=== PATIENT | female | born 1960 | race Caucasian/White ===

== ENCOUNTER → 2017-08-16 | Outpatient (CLI) | payer OTHER ==
--- NOTE | 2017-08-17 10:27 | MM ---
Reason for exam: screening (asymptomatic). Last mammogram was performed 1 year and 5 months ago. History: Patient is postmenopausal and has history of endometrial cancer at age 53. Physical Findings: A clinical breast exam by your physician is recommended on an annual basis and results should be correlated with mammographic findings. MG Screening Mammo w CAD Bilateral CC and MLO view(s) were taken. Prior study comparison: March 04, 2016, bilateral MG screening mammo w CAD. June 12, 2014, bilateral MG screening mammo w CAD. The breast tissue is heterogeneously dense. This may lower the sensitivity of mammography. No significant changes when compared with prior studies. ASSESSMENT: Negative, BI-RAD 1 RECOMMENDATION: Routine screening mammogram of both breasts in 1 year.
== END | disposition home or self-care (01) ==
LOC: RADMAMWWP 16:38
PROVIDERS: ATTEND Obstetrics & Gynecology
DX: Z12.31 Encounter for screening mammogram for malignant neoplasm of breast (principal)

== ENCOUNTER → 2018-10-12 | Outpatient (CLI) | payer OTHER ==
--- NOTE | 2018-10-15 10:48 | MM ---
Reason for exam: screening (asymptomatic). Last mammogram was performed 1 year and 2 months ago. History: Patient is postmenopausal and has history of endometrial cancer at age 53. Physical Findings: A clinical breast exam by your physician is recommended on an annual basis and results should be correlated with mammographic findings. MG Screening Mammo w CAD Bilateral CC and MLO view(s) were taken. Prior study comparison: August 16, 2017, bilateral MG screening mammo w CAD. March 04, 2016, bilateral MG screening mammo w CAD. The breast tissue is heterogeneously dense. This may lower the sensitivity of mammography. No suspicious abnormality. No significant changes when compared with prior studies. ASSESSMENT: Negative, BI-RAD 1 RECOMMENDATION: Routine screening mammogram of both breasts in 1 year.
--- NOTE | 2018-10-15 12:53 | BD ---
EXAMINATION TYPE: Axial Bone Density DATE OF EXAM: 10/12/2018 COMPARISON: 03/04/2016 CLINICAL HISTORY: Postmenopausal female. Osteoporosis screening. Height: 65 Weight: 156.3 FRAX RISK QUESTIONS: Alcohol (3 or more units per day): no Family History (Parent hip fracture): no Glucocorticoids (More than 3mos): no (Ex: prednisone, prednisolone, methylprednisolone, dexamethasone, and hydrocortisone). History of Fracture in Adulthood: no Secondary Osteoporosis: 1. Type 1 Diabetes: no 2. Hyperthyroidism: no 3. Menopause before 45: no 4. Malnutrition: no 5. Chronic liver disease: no Rheumatoid Arthritis: no Current Tobacco Use: no RISK FACTORS HISTORY OF: Family History of Osteoporosis: no Active: sometimes Diet low in dairy products/other sources of calcium: no Postmenopausal woman: age 53 MEDICATIONS: lipitor, diabetic meds, blood pressure meds Thyroid Medications: levothyroxine How Lon years Additional History: EXAM MEASUREMENTS: Bone mineral densitometry was performed using the HEAL[employer] System. Bone mineral density as measured about the Lumbar spine is: ----- L1-L4(G/cm2): 1.220 T Score Values are as follows: ----- L2: -0.6 ----- L3: 0.5 ----- L4: 1.6 ----- L1-L4: 0.3 Bone mineral density has: decreased -0.1 % since study of: 03.04.2016 Bone mineral density about the R hip (g/cm2): 0.910 Bone mineral density about the L hip (g/cm2): 0.827 T Score values are as follows: -----R Neck: -0.9 -----L Neck: -1.5 -----R Total: -0.8 -----L Total: -1.1 Bone mineral density has: decreased -5.1 % since study of: 03.04.2016 IMPRESSION: Osteopenia (T Score between -2.5 and -1). There is slightly increased risk of fracture and the patient may be considered for treatment. Re-Screen 2-5 years. NOTE: T-SCORE=SD OF THE YOUNG ADULT MEAN.
== END | disposition home or self-care (01) ==
LOC: RADMAMWWP 15:34
PROVIDERS: ATTEND Obstetrics & Gynecology
DX: Z12.31 Encounter for screening mammogram for malignant neoplasm of breast (principal); M85.80 Other specified disorders of bone density and structure, unspecified site
CPT/HCPCS: 77067; 77080

== ENCOUNTER 2019-01-25 15:45 | Emergency (ER) | payer OTHER ==
--- NOTE | 2019-01-25 16:41 | ED ---
Back Pain HPI - General Chief Complaint: Back Pain/Injury Stated Complaint: Back Pain Time Seen by Provider: 01/25/19 16:06 Source: patient, RN notes reviewed Limitations: no limitations - History of Present Illness Initial Comments: 58-year-old female presented emergency Department chief complaint of left lower back pain. Patient states the pain has been persistent over the last 1 week. Cannot remember any injury at this time. Patient does state the pain is worse with any movement better at rest. Denies any bowel bladder incontinence or retention. Denies any saddle anesthesias. Denies any lower extremity paresthesias or weakness. Patient has no abdominal complaints including diarrhea constipation no dysuria no hematuria. Patient reports no fevers or chills. Patient did try some ibuprofen with minimal relief. - Related Data Previous Rx's Medication Instructions Recorded Cyclobenzaprine [Flexeril] 10 mg PO TID PRN #15 tab 01/25/19 Ibuprofen [Motrin] 800 mg PO Q6HR #30 tab 01/25/19 Allergies Allergy/AdvReac Type Severity Reaction Status Date / Time No Known Allergies Allergy Verified 01/25/19 15:57 Review of Systems ROS Statement: Those systems with pertinent positive or pertinent negative responses have been documented in the HPI. ROS Other: All systems not noted in ROS Statement are negative. Past Medical History Past Medical History: Diabetes Mellitus, Hyperlipidemia History of Any Multi-Drug Resistant Organisms: None Reported Past Surgical History: Section, Orthopedic Surgery Past Psychological History: No Psychological Hx Reported Smoking Status: Never smoker Past Alcohol Use History: None Reported Past Drug Use History: Unable to Obtain General Exam Limitations: no limitations General appearance: alert, in no apparent distress Neck exam: Present: normal inspection, full ROM. Absent: tenderness, meningismus, lymphadenopathy Respiratory exam: Present: normal lung sounds bilaterally. Absent: respiratory distress, wheezes, rales, rhonchi, stridor Cardiovascular Exam: Present: regular rate, normal rhythm, normal heart sounds. Absent: systolic murmur, diastolic murmur, rubs, gallop, clicks Extremities exam: Present: other (Lower extremity strength equal bilaterally neurovascular intact) Back exam: Present: full ROM, tenderness, paraspinal tenderness, other (Pain with left straight leg raise). Absent: vertebral tenderness Neurological exam: Present: alert, oriented X3, CN II-XII intact, reflexes normal. Absent: motor sensory deficit Skin exam: Present: warm, dry, intact, normal color. Absent: rash Course Vital Signs 01/25/19 15:54 Temperature 97.7 F Pulse Rate 91 Respiratory 18 Rate Blood Pressure 130/85 O2 Sat by Pulse 99 Oximetry Medical Decision Making - Medical Decision Making 4-year-old female presented for low back pain. Patient's symptoms are consistent with lumbar strain. She has no red flag symptoms, neurovascular intact. Patient be discharged with medications and return parameters were discussed. Disposition Clinical Impression: Strain of lumbar region Disposition: HOME SELF-CARE Condition: Stable Instructions (If sedation given, give patient instructions): Acute Low Back Pain (ED) Additional Instructions: Please return to the Emergency Department if symptoms worsen or any other concerns. Prescriptions: Cyclobenzaprine [Flexeril] 10 mg PO TID PRN #15 tab PRN Reason: Muscle Spasm Ibuprofen [Motrin] 800 mg PO Q6HR #30 tab Is patient prescribed a controlled substance at d/c from ED?: No Referrals: Teodoro Rod DO [Primary Care Provider] - 1-2 days Time of Disposition: 17:28
--- NOTE | 2019-01-25 16:58 | XR ---
EXAMINATION TYPE: XR lumbosacral spine min 4V DATE OF EXAM: 01/25/2019 COMPARISON: NONE HISTORY: Back pain TECHNIQUE: 5 views FINDINGS: The lumbar vertebra have fairly normal alignment. Posterior elements are intact. There is m ild spurring of the endplates. Sacroiliac joints appear normal. There is no compression fracture. IMPRESSION: Mild spondylotic changes. No fracture.
[2019-01-25] MEDS ORDERED: ACET/COD 300 MG/30 MG STARTER PACK 6 TAB BTL PO STA (17:28)
[2019-01-25 17:39] VITALS: BP 149/83; PULSE 88; RESP 16; TEMP 97.5
== END 2019-01-25 17:40 | disposition home or self-care (01) ==
LOC: EC 15:45
DX: S39.012A Strain of muscle, fascia and tendon of lower back, initial encounter (principal); X58.XXXA Exposure to other specified factors, initial encounter
CPT/HCPCS: 72110; 99283

== ENCOUNTER 2019-03-11 10:07 | Inpatient (IN) | payer OTHER ==
[2019-03-11] MEDS ORDERED: KETOROLAC 30 MG/ML 1 ML VIAL IVP STA (11:00)
[2019-03-11] MEDS ORDERED: MORPHINE SULFATE 4 MG/ML SYRINGE IVP STA (11:00)
--- NOTE | 2019-03-11 11:03 | ED ---
Back Pain HPI - General Chief Complaint: Back Pain/Injury Stated Complaint: back pain Time Seen by Provider: 03/11/19 10:23 Source: patient, RN notes reviewed, old records reviewed Limitations: no limitations - History of Present Illness Initial Comments: Patient is a 4-year-old female presents emergency room today for evaluation for lower back pain for the past month. Patient states that she's been having worsening pain occasionally in her pelvis and groin. Patients that she's had a history of uterine cancer in remission. Patient states that tomorrow she is scheduled for a CT of her entire body and bone scan. Patient reports that she was prescribed tramadol for pain relief by her PCP and it was not helping. Patient states that she's had no fevers or chills. She does report poor appetite and weight loss. - Related Data Home Medications Medication Instructions Recorded Confirmed Cholecalciferol [Vitamin D3] 1,000 unit PO DAILY 03/11/19 03/11/19 Levothyroxine Sodium [Synthroid] 100 mcg PO DAILY 03/11/19 03/11/19 Lisinopril [Prinivil] 10 mg PO DAILY 03/11/19 03/11/19 traMADol HCL [Ultram] 50 mg PO Q6H 03/11/19 03/11/19 Allergies Allergy/AdvReac Type Severity Reaction Status Date / Time latex Allergy Rash/Hives Verified 03/11/19 10:25 Review of Systems ROS Statement: Those systems with pertinent positive or pertinent negative responses have been documented in the HPI. ROS Other: All systems not noted in ROS Statement are negative. Past Medical History Past Medical History: Diabetes Mellitus, Hyperlipidemia Additional Past Medical History / Comment(s): chronic back pain History of Any Multi-Drug Resistant Organisms: None Reported Past Surgical History: Section, Orthopedic Surgery Past Psychological History: No Psychological Hx Reported Smoking Status: Never smoker Past Alcohol Use History: None Reported Past Drug Use History: None Reported General Exam - General Exam Comments Initial Comments: This is a 58-year-old female. Alert and oriented. No significant distress. Limitations: no limitations Head exam: Present: atraumatic, normocephalic, normal inspection Eye exam: Present: normal appearance, PERRL, EOMI. Absent: scleral icterus, conjunctival injection, periorbital swelling ENT exam: Present: normal exam, mucous membranes moist Neck exam: Present: normal inspection. Absent: tenderness, meningismus, lymphadenopathy Respiratory exam: Present: normal lung sounds bilaterally. Absent: respiratory distress, wheezes, rales, rhonchi, stridor Cardiovascular Exam: Present: regular rate, normal rhythm, normal heart sounds. Absent: systolic murmur, diastolic murmur, rubs, gallop, clicks GI/Abdominal exam: Present: soft, normal bowel sounds. Absent: distended, tenderness, guarding, rebound, rigid Extremities exam: Present: normal inspection, full ROM, normal capillary refill. Absent: tenderness, pedal edema, joint swelling, calf tenderness Back exam: Present: normal inspection Neurological exam: Present: alert, oriented X3, CN II-XII intact Psychiatric exam: Present: normal affect, normal mood Skin exam: Present: warm, dry, intact, normal color. Absent: rash Course Vital Signs 03/11/19 10:08 Temperature 97.4 F L Pulse Rate 117 H Respiratory 18 Rate Blood Pressure 131/79 O2 Sat by Pulse 100 Oximetry Medical Decision Making - Medical Decision Making Patient is a 4-year-old female who presents emergency Department today with complaints of weight loss, lower back pain for the past month. Patient states that she has been unable to sleep well due to the pain. She reports no significant change in urination or saddle anesthesias. At this time reviewed patient's x-ray from one month ago which showed normal lumbar spine. Due to this concern of worsening weight loss CT lumbar spine is completed. Evidence of a pathologic fracture at L3 which could represent recurrence of patient's cancer. The CT also shows retroperitoneal adenopathy and pneumothorax abdomen and pelvis. Lymphoma should be considered. There is also moderate left hydroureter nephrosis causing adenopathy encased in the left mild ureter. Lymph nodes are partially calcified. Patient was informed of these results and the new pathologic fracture. She states her pain is still significant after receiving IV pain medication. Patient's case discussed with pharmacist Dr. Collins Will discuss case with Dr. rod. I discussed the treatment out patiently with pain medication or inpatient. Patient states she hasn't felt well to go home. We will admit this Patient at this time for new L3 compression deformity and concern for metastases. We'll consult oncology and Dr. Katz. - Lab Data Result diagrams: 03/11/19 11:37 03/11/19 11:37 Lab Results 03/11/19 03/11/19 03/11/19 Range/Units 11:37 11:37 11:37 WBC 11.9 H (3.8-10.6) k/uL RBC 4.73 (3.80-5.40) m/uL Hgb 13.4 (11.4-16.0) gm/dL Hct 40.3 (34.0-46.0) % MCV 85.2 (80.0-100.0) fL MCH 28.5 (25.0-35.0) pg MCHC 33.4 (31.0-37.0) g/dL RDW 14.4 (11.5-15.5) % Plt Count 355 (150-450) k/uL Neutrophils % 64 % Lymphocytes % 23 % Monocytes % 8 % Eosinophils % 2 % Basophils % 1 % Neutrophils # 7.6 (1.3-7.7) k/uL Lymphocytes # 2.8 (1.0-4.8) k/uL Monocytes # 1.0 (0-1.0) k/uL Eosinophils # 0.2 (0-0.7) k/uL Basophils # 0.1 (0-0.2) k/uL Sodium 136 L (137-145) mmol/L Potassium 4.2 (3.5-5.1) mmol/L Chloride 101 (98-107) mmol/L Carbon Dioxide 26 (22-30) mmol/L Anion Gap 9 mmol/L BUN 18 H (7-17) mg/dL Creatinine 0.56 (0.52-1.04) mg/dL Est GFR (CKD-EPI)AfAm >90 (>60 ml/min/1.73 sqM) Est GFR (CKD-EPI)NonAf >90 (>60 ml/min/1.73 sqM) Glucose 119 H (74-99) mg/dL Calcium 10.1 (8.4-10.2) mg/dL Urine Color Yellow Urine Appearance Cloudy H (Clear) Urine pH 6.0 (5.0-8.0) Ur Specific [place] 1.027 (1.001-1.035) Urine Protein Trace H (Negative) Urine Glucose (UA) Negative (Negative) Urine Ketones Negative (Negative) Urine Blood Negative (Negative) Urine Nitrite Negative (Negative) Urine Bilirubin Negative (Negative) Urine Urobilinogen 2.0 (<2.0) mg/dL Ur Leukocyte Esterase Negative (Negative) Urine RBC 19 H (0-5) /hpf Urine WBC 5 (0-5) /hpf Ur Squamous Epith Cells <1 (0-4) /hpf Hyaline Casts 6 H (0-2) /lpf Urine Mucus Few H (None) /hpf - Radiology Data Radiology results: report reviewed Pressure. He adenopathy or pneumothorax abdomen and pelvis. Lymphoma should be considered. Crates moderate left hydroureter nephrosis is adenopathy in case his them left mid ureter. Some the lymph nodes are partially calcified today and treated metastases could be considered if there is history of primary carcinoma. Left lateral compression deformity of L3 vertebral body with indistinct margin that could represent a pathologic fracture. MRI of the lumbar spine evaluate for bone marrow replacing process and bone marrow edema. Moderate multilevel degenerative disc disease of lumbar spine results and mild spinal canal stenosis at L1-L2, and moderate spinal canal systems L3-L4. Variable degrees of neural foraminal narrowing as described. Disposition Clinical Impression: Pathologic fracture, Adenopathy, Hydroureter on left, Weight loss Disposition: ADMITTED IP TO THIS HOSP Condition: Good Is patient prescribed a controlled substance at d/c from ED?: No Referrals: Teodoro Rod DO [Primary Care Provider] - 1-2 days Time of Disposition: 12:50
[2019-03-11 12:02] LABS: Appearance,Urine Cloudy (Clear); Bilirubin,Urine Negative (Negative); Blood,Urine Negative (Negative); Color,Urine Yellow; Glucose,Urine (UA) Negative (Negative); Hyaline Casts,Urine 6 /lpf (0-2); Ketones,Urine Negative (Negative); Leukocyte Esterase,Urine Negative (Negative); Mucus,Urine Few /hpf; Nitrite,Urine Negative (Negative); Protein,Urine Trace (Negative); RBC,Urine 19 /hpf (0-5); Specific Gravity,Urine 1.027 (1.001-1.035); Squamous Epithelial Cell,Urine <1 /hpf (0-4); WBC,Urine 5 /hpf (0-5)
[2019-03-11 12:15] LABS: Anion Gap 9 mmol/L; Blood Urea Nitrogen 18 mg/dL (7-17); Calcium 10.1 mg/dL (8.4-10.2); Carbon Dioxide 26 mmol/L (22-30); Chloride 101 mmol/L (98-107); Glucose 119 mg/dL (74-99); Potassium 4.2 mmol/L (3.5-5.1); Sodium 136 mmol/L (137-145)
--- NOTE | 2019-03-11 12:15 | CT ---
EXAMINATION TYPE: CT lumbar spine wo con DATE OF EXAM: 03/11/2019 12:02 PM COMPARISON: None HISTORY: Low back pain CT DLP: 520.3 mGycm Automated exposure control for dose reduction was used. TECHNIQUE: Unenhanced CT of the lumbar spine was performed. Bone and soft tissue window settings are submitted as well as coronal and sagittal reconstructions. FINDINGS: Retrocrural adenopathy is seen in the visualized portions of the inferior thorax, abdomen, and pelvis. Some of these lymph nodes contain internal dystrophic appearing calcifications. The large st conglomeration of lymph nodes within the periaortic space on series 202 image 23 measuring 3.5 x 3 .7 cm. There is some inflammatory change seen adjacent to this and partial visualization of moderate left hydroureteronephrosis as adenopathy surrounds the left mid ureter. Visualized bowel is nondilate d and there is moderate degree fecal stasis. Punctate 2 mm nonobstructing right lower pole renal calc ulus is seen. Lower paraspinal musculature demonstrates atrophy and there is mild osseous demineraliz ation. Multilevel degenerative disc disease is seen of the lumbar spine. The lumbar spine vertebral bodies maintain normal alignment however there is a compression deformity of the left lateral aspect of the L3 vertebral body with indistinct margins. Vertebral body height lo ss is approximately 20%. No retropulsion is seen. This involves the mid and anterior endplate of the left lateral aspect of the vertebral body only. L1-L2: There is a broad-based disc bulge and mild facet arthropathy resulting in mild bilateral neura l foraminal narrowing and mild spinal canal stenosis. L2-L3: There is a broad-based disc bulge and facet arthropathy resulting in mild bilateral neural for aminal narrowing without spinal canal stenosis. L3-L4: There is a broad-based disc bulge and facet arthropathy as well as ligamentum flavum buckling resulting in moderate spinal canal stenosis and mild bilateral neural foraminal narrowing. L4-L5: There is a partially calcified broad-based disc bulge, ligamentum flavum buckling and facet ar thropathy resulting in mild bilateral neural foraminal narrowing and moderate to severe spinal canal stenosis. L5-S1: There is a partially calcified left eccentric broad-based disc bulge and comminution with post erior projecting osteophyte and left lateral disc herniation create severe left neural foraminal narr owing, mild right neural foraminal narrowing and moderate spinal canal stenosis. Facet arthropathy is also seen at this level. IMPRESSION: 1. Retroperitoneal adenopathy in the thorax, abdomen, and pelvis. Lymphoma should be considered. This creates moderate left hydroureteronephrosis as adenopathy encases the left mid ureter. Some of the l ymph nodes are partially calcified and treated metastasis could be considered if there is a history o f primary carcinoma. 2. Left lateral compression deformity of the L3 vertebral body with indistinct margin is seen that co uld represent a pathologic fracture. MRI of the lumbar spine could evaluate for bone marrow replacing process and bone marrow edema. 3. Moderate multilevel degenerative disc disease of the lumbar spine results in mild spinal canal k[place] nosis at L1-L2, moderate spinal canal stenosis at L3-L4 and L5-S1, severe spinal canal stenosis at L4 -L5 and variable degrees of neural foraminal narrowing as described above.
[2019-03-11 12:16] LABS: Basophils # (A) 0.1 k/uL (0-0.2); Basophils % (A) 1 %; Eosinophils # (A) 0.2 k/uL (0-0.7); Eosinophils % (A) 2 %; HCT 40.3 % (34.0-46.0); HGB 13.4 gm/dL (11.4-16.0); Lymphocytes # (A) 2.8 k/uL (1.0-4.8); Lymphocytes % (A) 23 %; MCH 28.5 pg (25.0-35.0); MCHC 33.4 g/dL (31.0-37.0); MCV 85.2 fL (80.0-100.0); Mean Platelet Volume 6.7; Monocytes % (A) 8 %; Neutrophils # (A) 7.6 k/uL (1.3-7.7); Neutrophils % (A) 64 %; Platelet Count 355 k/uL (150-450); RBC 4.73 m/uL (3.80-5.40); RDW 14.4 % (11.5-15.5); WBC 11.9 k/uL (3.8-10.6)
[2019-03-11] MEDS ORDERED: ONDANSETRON 4 MG/2 ML VIAL IVP PRN (12:52)
[2019-03-11] MEDS ORDERED: NALOXONE 0.4 MG/ML 1 ML VIAL IV PRN (12:52)
[2019-03-11] MEDS: SODIUM CHLORIDE 0.9% 1,000 ML IV SCH (14:28)
[2019-03-11] MEDS: KETOROLAC 30 MG/ML 1 ML VIAL IVP PRN (21:24)
[2019-03-11] MEDS: MORPHINE SULFATE 4 MG/ML SYRINGE IV PRN (21:54)
[2019-03-12] MEDS: SODIUM CHLORIDE 0.9% 1,000 ML IV SCH ×3 (00:21→20:08)
[2019-03-12] MEDS: MORPHINE SULFATE 4 MG/ML SYRINGE IV PRN ×3 (05:00→20:32)
[2019-03-12] MEDS: KETOROLAC 30 MG/ML 1 ML VIAL IVP PRN ×3 (05:00→20:31)
--- NOTE | 2019-03-12 07:56 | P.HPIM ---
History of Present Illness H&P Date: 03/12/19 Chief Complaint: Back pain This is a pleasant 58-year-old white female who initially presented to my office with acute low back pain and strain. She was set up for outpatient CT scans and x-rays but came to the hospital for intractable pain last evening. She has cancer of the uterus. And it appears the patient may have some metastatic disease versus lymphoma process. There is multiple areas of concern including the lumbar spine she currently is admitted for pain control and further evaluation with oncology services in orthopedics. Review of Systems GENERAL: Patient denies fever. Denies chills. EYES: Denies blurred vision. Denies vision changes. Denies eye pain. EARS, NOSE, MOUTH, & THROAT: Denies headache. Denies sore throat. Denies ear pain. RESPIRATORY: Denies cough. Denies shortness of breath. Denies sputum production. Denies hemoptysis. CARDIOVASCULAR: Denies chest pain or pressure. Denies palpitations. Denies ar rhythmias. GASTROINTESTINAL: Denies abdominal pain. Denies diarrhea. Denies constipation. Denies nausea. Denies vomiting. Denies heartburn. Denies blood in the stool. GENITOURINARY: Denies urinary frequency. Denies burning. Denies dysuria. Denies cloudy urine. Denies blood in the urine. MUSCULOSKELETAL: Admits myalgias. Admits joint swelling. Admits to severe pain in the lumbar spine with decreased range of motion INTEGUMENTARY: Denies pruitis. Denies rash. PSYCHIATRIC: Denies suicidal or homicial ideations. ENDOCRINE: Denies weight change. Denies polydipsia. Denies polyuria. HEMATOLOGIC: Denies bleeding disorders. Past Medical History Past Medical History: Diabetes Mellitus, Hyperlipidemia, Hypertension, Thyroid Disorder Additional Past Medical History / Comment(s): 2012 Uterine cancer with hysterectomy and radiation, NIDDM-no longer on medication d/t wt loss, neuropathy bilateral feet, hypothyroid. History of Any Multi-Drug Resistant Organisms: None Reported Past Surgical History: Section, Hysterectomy, Orthopedic Surgery Additional Past Surgical History / Comment(s): x 2, L foot bone spur Past Anesthesia/Blood Transfusion Reactions: Motion Sickness, Postoperative Nausea & Vomiting (PONV) Smoking Status: Never smoker - Past Family History Father Family Medical History: Myocardial Infarction ([place]) Additional Family Medical History / Comment(s): Father had a [place] at the age of 85 yrs. Mother Family Medical History: Osteoarthritis (OA), Skin Disorder, Thyroid Disorder Additional Family Medical History / Comment(s): Psoriasis. Medications and Allergies Home Medications Medication Instructions Recorded Confirmed Type Cholecalciferol [Vitamin D3] 1,000 unit PO DAILY 03/11/19 03/11/19 History Levothyroxine Sodium [Synthroid] 100 mcg PO DAILY 03/11/19 03/11/19 History Lisinopril [Prinivil] 10 mg PO DAILY 03/11/19 03/11/19 History traMADol HCL [Ultram] 50 mg PO Q6H 03/11/19 03/11/19 History Allergies Allergy/AdvReac Type Severity Reaction Status Date / Time latex Allergy Rash/Hives Verified 03/11/19 10:25 Physical Exam Osteopathic Statement: *. Patient has significant issues noted on an osteopathic structural exam including didn't decreased range of motion lumbar spine with extreme pain. Somatic dysfunctions evident Vitals: Vital Signs Temp Pulse Pulse Resp BP BP Pulse Ox 03/12/19 05:00 97.9 F 90 16 130/80 100 03/11/19 23:20 16 03/11/19 21:00 97.4 F L 95 16 107/60 98 03/11/19 16:48 97.7 F 96 16 125/69 97 03/11/19 16:00 18 105/67 100 03/11/19 15:00 96 18 110/74 99 03/11/19 14:17 97 18 112/76 100 03/11/19 10:08 97.4 F L 117 H 18 131/79 100 Intake and Output 03/11/19 03/12/19 03/12/19 22:59 06:59 14:59 Intake Total 1000 580 Balance 1000 580 Intake: Intake, IV Titration 400 Amount Sodium Chloride 0.9% 1, 400 000 ml @ 100 mls/hr IV . Q10H JAYLENE Rx#:[id number] Oral 600 580 Other: # Voids 1 1 GENERAL: This is a -58 year-old female in apparent distress at the time of examination. Pleasant and cooperative. HEENT: Head is atraumatic, normocephalic. Pupils are equal, round, and reactive to light. Sclerae anicteric. Conjunctivae are clear. Mucus membranes of the mouth are moist. Neck is supple. RESPIRATORY: Clear to auscultation. No wheezes, rales, or rhonchi. No use of accessory muscles. Patient maintaining oxygen saturation greater than 92%. No chest wall tenderness is noted on palpation or with deep breathing. CARDIOVASCULAR: Regular rate and rhythm. S1 and S2 noted. No systolic or diastolic murmur auscultated. No JVD noted. No S3 or S4 noted. GASTROINTESTINAL: No distention noted. Abdomen soft and round. Normal active bowel sounds auscultated x 4 quadrants. No pain or tenderness noted upon palpation. INTEGUMENTARY: No cyanosis. No jaundice. No rashes noted. No cellulitis noted. EXTREMITIES: 2+ peripheral pulses. No evidence of peripheral edema. No calf tenderness noted. Pain in the lumbar spine difficulty ambulating difficulty with range of motion of the lower extremities NEUROLOGIC: Cranial nerves II-XII intact. PSYCHIATRIC: Awake, alert, and oriented X 3. Appropriate affect. Intact judgement and insight. Results CBC & Chem 7: 03/11/19 11:37 03/11/19 11:37 Labs: Abnormal Lab Results - Last 24 Hours (Table) 03/11/19 03/11/19 03/11/19 Range/Units 11:37 11:37 11:37 WBC 11.9 H (3.8-10.6) k/uL Sodium 136 L (137-145) mmol/L BUN 18 H (7-17) mg/dL Glucose 119 H (74-99) mg/dL Urine Appearance Cloudy H (Clear) Urine Protein Trace H (Negative) Urine RBC 19 H (0-5) /hpf Hyaline Casts 6 H (0-2) /lpf Urine Mucus Few H (None) /hpf Thrombosis Risk Factor Assmnt - Choose All That Apply Any of the Below Risk Factors Present?: Yes Each Factor Represents 1 point: Age 41-60 years Other Risk Factors: Yes Each Risk Factor Represents 2 Points: Malignancy Other congenital or acquired thrombophilia - If yes, enter type in comment: No Thrombosis Risk Factor Assessment Total Risk Factor Score: 3 Thrombosis Risk Factor Assessment Level: Moderate Risk Assessment and Plan (1) Hypothyroidism Current Visit: Yes Status: Acute Code(s): E03.9 - HYPOTHYROIDISM, UNSPECIFIED SNOMED Code(s): 75515705 (2) Adenopathy Current Visit: Yes Status: Acute Code(s): R59.1 - GENERALIZED ENLARGED LYMPH NODES SNOMED Code(s): 52459251 (3) Hydroureter on left Current Visit: Yes Status: Acute Code(s): N13.4 - HYDROURETER SNOMED Code(s): 53957816 (4) Pathologic fracture Current Visit: Yes Status: Acute Code(s): M84.40XA - PATHOLOGICAL FRACTURE, UNSP SITE, INIT ENCNTR FOR FRACTURE SNOMED Code(s): 540095851 (5) Weight loss Current Visit: Yes Status: Acute Code(s): R63.4 - ABNORMAL WEIGHT LOSS SNOMED Code(s): 48795725 Plan: We'll admit patient with pain control for oncology evaluation as well as orthopedic evaluation of pathological fractures of the lumbar spine.
[2019-03-12] MEDS ORDERED: PANTOPRAZOLE 40 MG/10 ML VIAL IV SCH (09:00)
--- NOTE | 2019-03-12 09:20 | P.CNOR ---
History of Present Illness - [facility] Consult date: 03/12/19 Requesting physician: Ashley Jovel Consult reason: fracture (L3 pathologic compression fracture), low back pain History of present illness: Patient is a very pleasant 58-year-old female who is seen and examined the bedside after consultation was placed for further dilation of low back pain and L3 pathologic fracture. Patient has been experiencing increased left-sided low back pain over the past month without injury. She is also following with Dr. Rod in the outpatient setting. She has had loss of appetite with increased weight loss and states she has lost approximately 30 pounds. Her pain became so severe she presented to the emergency department yesterday, 03/11/2019, for further evaluation. Computed tomography scan was taken emergency department which showed evidence of a pathologic fracture at L3 as well as findings which could indicate lymphoma. Patient states she was scheduled CT scans and a bone scan performed today. Patient is seen and examined at bedside with her family present as well as Dr. Rod. Dr. Rod is planning to discontinue previously ordered CT scans and bone scan. We will plan to proceed forward with an MRI of the lumbar spine with and without contrast. Consultation has also been placed with oncology. Patient denies any lower extremity weakness or radiculopathy bilaterally. She feels her back pain is exacerbated with movements of her spine. She has not experienced increased pain with coughing or sneezing. She denies any recent injuries. She does have a previous history of uterine cancer with hysterectomy and radiation in 2012. She does feel at the bedside her pain has been better controlled. She does admit at the bedside this morning she does not have much of an appetite. Patient also has a medical history including diabetes mellitus, hypertension, hyperlipidemia, thyroid disorder. Past Medical History Past Medical History: Diabetes Mellitus, Hyperlipidemia, Hypertension, Thyroid Disorder Additional Past Medical History / Comment(s): 2012 Uterine cancer with hysterectomy and radiation, NIDDM-no longer on medication d/t wt loss, neuropathy bilateral feet, hypothyroid. History of Any Multi-Drug Resistant Organisms: None Reported Past Surgical History: Section, Hysterectomy, Orthopedic Surgery Additional Past Surgical History / Comment(s): x 2, L foot bone spur Past Anesthesia/Blood Transfusion Reactions: Motion Sickness, Postoperative Nausea & Vomiting (PONV) Smoking Status: Never smoker - Past Family History Father Family Medical History: Myocardial Infarction ([place]) Additional Family Medical History / Comment(s): Father had a [place] at the age of 85 yrs. Mother Family Medical History: Osteoarthritis (OA), Skin Disorder, Thyroid Disorder Additional Family Medical History / Comment(s): Psoriasis. Medications and Allergies Home Medications Medication Instructions Recorded Confirmed Type Cholecalciferol [Vitamin D3] 1,000 unit PO DAILY 03/11/19 03/11/19 History Levothyroxine Sodium [Synthroid] 100 mcg PO DAILY 03/11/19 03/11/19 History Lisinopril [Prinivil] 10 mg PO DAILY 03/11/19 03/11/19 History traMADol HCL [Ultram] 50 mg PO Q6H 03/11/19 03/11/19 History Allergies Allergy/AdvReac Type Severity Reaction Status Date / Time latex Allergy Rash/Hives Verified 03/11/19 10:25 Physical Examination Physical exam: Patient is awake, alert, and oriented 3 Vital signs stable Good chest excursion with deep inspiration and expiration Examination of lumbar spine reveals skin is intact with no abrasions, lacerations, or bruises; no erythema, purulence or signs of infection Pain with palpation of the left lateral lumbar spine Dorsiflexion, plantarflexion, and extensor hallucis longus positive sustained bilaterally Lower extremity strength 5/5 bilaterally Straight leg test negative bilateral lower extremities No signs or symptoms of DVT; no calf pain No pain with internal and external rotation of the hips bilaterally Neurovascularly intact Results Pertinent studies: CT of the lumbar spine taken on 03/11/2019: Left lateral compression fracture deformity of the L3 vertebral body with indistinct margins that could represent pathologic fracture in which MRI of the lumbar spine to evaluate for bone marrow replacing process and bone marrow edema; retroperitoneal adenopathy in the thorax, abdomen, and pelvis in which lymphoma should be considered; moderate multilevel degenerative disc disease in the lumbar spine resulting in L1-2 mild spinal canal stenosis, L3-4 moderate spinal canal stenosis, L4-5 severe spinal canal stenosis, and L5-S1 moderate spinal canal stenosis; variable degrees of neuroforaminal narrowing; Adenopathy creating moderate left hydroureteronephrosis as the adenopathy encases the left mid ureter - Labs Labs: Abnormal Lab Results - Last 24 Hours (Table) 03/11/19 03/11/19 03/11/19 Range/Units 11:37 11:37 11:37 WBC 11.9 H (3.8-10.6) k/uL Sodium 136 L (137-145) mmol/L BUN 18 H (7-17) mg/dL Glucose 119 H (74-99) mg/dL Urine Appearance Cloudy H (Clear) Urine Protein Trace H (Negative) Urine RBC 19 H (0-5) /hpf Hyaline Casts 6 H (0-2) /lpf Urine Mucus Few H (None) /hpf H & H 03/11/19 Range/Units 11:37 Hgb 13.4 (11.4-16.0) gm/dL Hct 40.3 (34.0-46.0) % Result Diagrams: 03/11/19 11:37 03/11/19 11:37 Assessment and Plan Assessment: Assessment: Acute left-sided low back pain L3 pathologic compression fracture deformity Retroperitoneal adenopathy in the thorax, abdomen, and pelvis in which lymphoma should be considered Hydroureter on the left History of uterine cancer with hysterectomy and radiation in 2013 Recent weight loss and lack of appetite History of diabetes mellitus, hypertension, hyperlipidemia, and thyroid disorder (1) Nontraumatic compression fracture of L3 vertebra Current Visit: Yes Status: Acute Code(s): M48.56XA - COLLAPSED VERTEBRA, NEC, LUMBAR REGION, INIT SNOMED Code(s): 235276810 (2) Acute low back pain Current Visit: Yes Status: Acute Code(s): M54.5 - LOW BACK PAIN SNOMED Code(s): 759570781 (3) Retroperitoneal lymphadenopathy Current Visit: Yes Status: Acute Code(s): R59.0 - LOCALIZED ENLARGED LYMPH NODES SNOMED Code(s): 698612052 (4) History of uterine cancer Current Visit: Yes Status: Acute Code(s): Z85.42 - PERSONAL HISTORY OF MALIGNANT NEOPLASM OF OTH PRT UTERUS SNOMED Code(s): 679726201 (5) History of diabetes mellitus Current Visit: Yes Status: Acute Code(s): Z86.39 - PERSONAL HISTORY OF ENDO, NUTRITIONAL AND METABOLIC DISEASE SNOMED Code(s): 172646444 (6) History of hypertension Current Visit: Yes Status: Acute Code(s): Z86.79 - PERSONAL HISTORY OF OTHER DISEASES OF THE CIRCULATORY SYSTEM SNOMED Code(s): 479074769 (7) History of hyperlipidemia Current Visit: Yes Status: Acute Code(s): Z86.39 - PERSONAL HISTORY OF ENDO, NUTRITIONAL AND METABOLIC DISEASE SNOMED Code(s): 778388720 (8) History of thyroid disorder Current Visit: Yes Status: Acute Code(s): Z86.39 - PERSONAL HISTORY OF ENDO, NUTRITIONAL AND METABOLIC DISEASE SNOMED Code(s): 464737238 (9) Pathologic fracture Current Visit: Yes Status: Acute Code(s): M84.40XA - PATHOLOGICAL FRACTURE, UNSP SITE, INIT ENCNTR FOR FRACTURE SNOMED Code(s): 990427859 (10) Weight loss Current Visit: Yes Status: Acute Code(s): R63.4 - ABNORMAL WEIGHT LOSS SNOMED Code(s): 80072664 (11) Lack of appetite Current Visit: Yes Status: Acute Code(s): R63.0 - ANOREXIA SNOMED Code(s): 83187309 (12) Hydroureter on left Current Visit: Yes Status: Acute Code(s): N13.4 - HYDROURETER SNOMED Code(s): 59524103 Plan: Plan: 1. After physical examination of the patient, reviewing imaging, and further discussion with the patient, at this time we will plan to order an Exos LSO brace for the patient's fracture at L3 and left-sided low back pain. Prescription for this brace has been written, signed, and provided to nursing he will obtain this brace. Patient should wear this brace while sitting upright at greater than 45, during increase activities, during ambulation. Brace does not have to be worn while lying in bed or while bathing. Given the findings of the computed tomography scan, we will also plan to obtain an MRI of the lumbar spine with and without contrast for further evaluation. This imaging will be reviewed by myself and Dr. Anthony Katz. We will follow up with the patient following the completion of this MRI and reviewing of imaging to discuss further treatment options. 2. Patient will continue be seen and examined by Dr. Rod in medicine. 3. Patient currently waiting for consultation with oncology 4. Patient will be discussed in detail with Dr. Anthony Katz Time with Patient: Greater than 30 (Including obtaining history, physical exami nation, reviewing of imaging, and dictation.)
[2019-03-12] MEDS: CHOLECALCIFEROL 1,000 UNIT TAB PO SCH (09:40)
[2019-03-12] MEDS: LISINOPRIL 10 MG TAB PO SCH (09:40)
[2019-03-12] MEDS: IOPAMIDOL-300 CONTRAST 30 ML VIAL (ORAL USE) PO PRN ×3 (09:51→11:51)
[2019-03-12 10:50] VITALS: BMI 22.1
[2019-03-12] MEDS: LEVOTHYROXINE 100 MCG TAB PO SCH (10:54)
--- NOTE | 2019-03-12 13:32 | NM ---
EXAMINATION TYPE: NM bone scan whole body DATE OF EXAM: 03/12/2019 COMPARISON: Lumbar spine dated 03/11/2019 HISTORY: Left sided back pain for over one month that is constant. Personal history of uterine cancer approximately 6 years ago. Delayed whole-body scanning was performed following the injection of 24.7 mCi Tc 99m MDP. Images acq uired 3 hours post injection. FINDINGS: Focal uptake is seen at the L3 level corresponding to the compression deformity seen on the CT dated 03/11/2019. Slightly asymmetric uptake within the left ankle joint, asymmetric uptake within the left knee, glenohumeral overall symmetric uptake, acromioclavicular overall symmetric uptake, and sacroili ac joint overall symmetric uptake are likely on a degenerative basis. Physiologic excretion is seen w ithin the kidneys and urinary bladder. Focal radiotracer is noted of the right tibial plateau and may be degenerative. Focal radiotracer overlying the left 11th rib is also seen. Although this could als o be a calyceal diverticulum of the left superior pole of the kidney as no discrete osseous abnormali ty is seen on CT of the same date. IMPRESSION: 1. Focal radiotracer uptake within the L3 vertebral body within the known left lateral compression de formity again could be pathologic and correlation with MRI of the lumbar spine to evaluate for bone m arrow replacing process on T1 weighted imaging is recommended. 2. Punctate abnormal radiotracer focus overlying the left 11th rib is seen however no discrete CT cor relate is appreciated and therefore additional consideration is for a left calyceal diverticulum. 3. Degenerative changes of the axial and appendicular skeleton. Additional focal accumulation of radi otracer seen of the medial tibial plateau on the right and may be related to compartment arthropathy but should be correlated with right knee radiographs.
--- NOTE | 2019-03-12 15:13 | CT ---
EXAMINATION TYPE: CT ChestAbdPelvis w con DATE OF EXAM: 03/12/2019 COMPARISON: 12/09/2013 HISTORY: 58-year-old female History uterine malignancy, new adenopathy, back pain. TECHNIQUE: Contiguous axial scanning of the chest, abdomen, and pelvis performed with IV Contrast, pa tient injected with 100 mL of Isovue M300. Delayed images through the kidneys were obtained. Coronal/ sagittal reconstructions performed. CT DLP: 563.8 mGycm Automated exposure control for dose reduction was used. FINDINGS: Heart normal size without pericardial effusion. Aorta normal caliber with bovine configuration to the aortic arch. No mediastinal or axillary lymphadenopathy. Prominent left periaortic lymph node in the mid thorax measures 8 mm. Subpleural pulmonary nodule measuring 8 mm possibly associated with some cystic change in the right u pper lobe, axial image 17. Mild centrilobular emphysema is present. No consolidation or pleural effus ion. ABDOMEN: Tiny hiatal hernia. There is retrocrural lymphadenopathy measuring up to 1.7 cm. Conglomerate retroperitoneal lymphadenopathy measuring up to 7.4 cm wide, axial image 69 showing foca l erosion into the left anterior L3 vertebral body. This partially encases the aorta by nearly 180 de grees. Individual left periaortic lymph nodes are centrally necrotic measuring up to 3.9 cm. No focal liver lesion identified and no biliary ductal dilatation. Portal venous system is patent. Gallbladder, adrenal glands, right kidney with extrarenal pelvis, spleen, and pancreas appear within normal limits. There is mild left-sided hydronephrosis and hydroureter. The ureter becomes obscured at the mid abdom inal level coursing very close to the retroperitoneal lymphadenopathy. No dilated small bowel, free fluid, or free air. Moderate stool burden. No pericolonic inflammatory change. Pelvis: Bladder is urine distended. Uterus surgically absent. Left-sided pelvic phleboliths. Left common iliac chain lymphadenopathy measuring up to 2.0 cm. Scattered small external iliac chain lymph nodes are present on both sides. No abnormal fluid collection in the pelvis. Bones: Mild degenerative changes at the hips. Erosion into the left anterior L3 vertebral body as mentioned above. This seems to be a concomitant superior endplate fracture here, likely pathologic injury. Mode rate degenerative disc disease midthoracic spine. IMPRESSION: 1. CONGLOMERATE RETROPERITONEAL LYMPHADENOPATHY MEASURING UP TO 7.4 CM. THERE IS PARTIAL ENCASEMENT O F THE AORTA BY 180 DEGREES. THE LARGEST INDIVIDUAL RETROPERITONEAL LYMPH NODE MEASURES UP TO 3.9 CM I N THE LEFT PARA-AORTIC REGION. 2. ADDITIONAL LEFT COMMON ILIAC CHAIN LYMPHADENOPATHY MEASURING UP TO 2.0 CM AND RETROCRURAL LYMPHADE NOPATHY MEASURING UP TO 1.7 CM. 3. THE RETROPERITONEAL SOFT TISSUE CAUSES FOCAL EROSION INTO THE LEFT ANTERIOR L3 VERTEBRAL BODY. THE RE IS AN ASSOCIATED PATHOLOGIC FRACTURE OF THE L3 SUPERIOR ENDPLATE WITH MINIMAL OVERALL HEIGHT LOSS TOWARDS THE LEFT. 4. MILD LEFT-SIDED HYDRONEPHROSIS LIKELY SECONDARY TO ENCASEMENT OF THE LEFT URETER IT COURSES PATRICIA NG THE RETROPERITONEUM. 5. NONSPECIFIC 8 MM SUBPLEURAL PULMONARY NODULE RIGHT UPPER LOBE. POSSIBLE SUBTLE CAVITARY CHANGE CHERRY JARROD ASSOCIATED EMPHYSEMATOUS CYST. THIS CAN BE REASSESSED AT FOLLOW-UP.
--- NOTE | 2019-03-12 16:40 | P.CONS ---
History of Present Illness - Reason for Consult Consult date: 03/12/19 Adenopathy, history of uterine cancer Requesting physician: Ashley Jovel - Chief Complaint back pain - History of Present Illness Mrs. Noyola is a very pleasant 58-year-old female patient who has a history of uterine cancer, treated with Dr. Bateman at [facility] in [place] 6 years ago. She was treated with surgery and radiation only. Since that time she has been on follow-up. Her last appointment was in July. In retrospect patient notes that about 2 months ago is when she thinks her symptoms started. Complaints of back pain and weight loss. Over the last 2 weeks this back pain progressed and was not responsive to [id number] remedies and supportive care. She did seek follow-up with her primary care physician Dr. Rod who ordered imaging. Patient was due for follow-up regarding the scans but, unfortunately her pain progressed to be unbearable and she came to the emergency department. Incidentally on the computed tomography scan retroperitoneal adenopathy and bony lesions were noted. On exam patient states an 8 pound unintentional weight loss in 2 months. Patient denies fevers, sweats, constitutional symptoms, loss of appetite, nausea, abdominal pain, distention, changes in bowel or bladder habits, vaginal bleeding, discharge, swelling of lower extremities, she may be more easily fatigued than previously. Review of Systems 14 point review of systems is negative except as stated in HPI Past Medical History Past Medical History: Cancer, Diabetes Mellitus, Hyperlipidemia, Hypertension, Thyroid Disorder Additional Past Medical History / Comment(s): 2012 Uterine cancer with hysterectomy and radiation, NIDDM-no longer on medication d/t wt loss, neuropathy bilateral feet, hypothyroid. History of Any Multi-Drug Resistant Organisms: None Reported Past Surgical History: Section, Hysterectomy, Orthopedic Surgery Additional Past Surgical History / Comment(s): x 2, L foot bone spur Past Anesthesia/Blood Transfusion Reactions: Motion Sickness, Postoperative Nausea & Vomiting (PONV) Past Psychological History: No Psychological Hx Reported Smoking Status: Never smoker Past Alcohol Use History: None Reported Past Drug Use History: None Reported - Past Family History Father Family Medical History: Myocardial Infarction (ME) Additional Family Medical History / Comment(s): Father had a ME at the age of 85 yrs. Mother Family Medical History: Osteoarthritis (OA), Skin Disorder, Thyroid Disorder Additional Family Medical History / Comment(s): Psoriasis. Medications and Allergies Home Medications Medication Instructions Recorded Confirmed Type Cholecalciferol [Vitamin D3] 1,000 unit PO DAILY 03/11/19 03/11/19 History Levothyroxine Sodium [Synthroid] 100 mcg PO DAILY 03/11/19 03/11/19 History Lisinopril [Prinivil] 10 mg PO DAILY 03/11/19 03/11/19 History traMADol HCL [Ultram] 50 mg PO Q6H 03/11/19 03/11/19 History Allergies Allergy/AdvReac Type Severity Reaction Status Date / Time latex Allergy Rash/Hives Verified 03/11/19 10:25 Physical Exam Vitals: Vital Signs Temp Pulse Resp BP BP Pulse Ox 03/12/19 11:50 98.2 F 91 16 116/75 99 03/12/19 07:56 16 03/12/19 05:00 97.9 F 90 16 130/80 100 03/11/19 23:20 16 03/11/19 21:00 97.4 F L 95 16 107/60 98 03/11/19 16:48 97.7 F 96 16 125/69 97 03/11/19 16:00 18 105/67 100 Intake and Output 03/12/19 03/12/19 03/12/19 06:59 14:59 22:59 Intake Total 580 1800 Balance 580 1800 Intake: Intake, IV Titration 700 Amount Sodium Chloride 0.9% 1, 700 000 ml @ 100 mls/hr IV . Q10H [facility] Rx#:[id number] Oral 580 1100 Other: Voiding Method Toilet # Voids 1 5 Weight 62.142 kg - Constitutional General appearance: average body habitus, cooperative, no acute distress - EENT Eyes: anicteric sclerae, EOMI ENT: hearing grossly normal, normal oropharynx - Neck Neck: no lymphadenopathy - Respiratory Respiratory: bilateral: CTA - Cardiovascular Rhythm: regular Heart sounds: normal: S1, S2 Abnormal Heart Sounds: no systolic murmur, no diastolic murmur, no rub, no S3 Gallop, no S4 Gallop, no click, no other - Gastrointestinal General gastrointestinal: no absent bowel sounds, no decreased bowel sounds, no distended, no hepatomegaly, no hyperactive bowel sounds, normal bowel sounds, no organomegaly, no rigid, no scaphoid, soft, no splenomegaly, no tenderness, no umbilical hernia, no ventral hernia - Integumentary Integumentary: normal - Neurologic Neurologic: CNII-XII intact - Musculoskeletal Musculoskeletal: strength equal bilaterally - Psychiatric Psychiatric: A&O x's 3, appropriate affect, intact judgment & insight Results CBC & Chem 7: 03/11/19 11:37 03/11/19 11:37 Assessment and Plan (1) History of uterine cancer Current Visit: Yes Status: Acute Priority: High Code(s): Z85.42 - PERSONAL HISTORY OF MALIGNANT NEOPLASM OF OTH PRT UTERUS SNOMED Code(s): 390825861 (2) Retroperitoneal lymphadenopathy Current Visit: Yes Status: Acute Priority: High Code(s): R59.0 - LOCALIZED ENLARGED LYMPH NODES SNOMED Code(s): 779590610 Plan: Case was discussed with attending physician. Patient recent symptom c/o of back pain prompted a lumbar spine CT. Incidentally the CT revealed retroperitoneal lymphadenopathy and bone lesions. Plan at this time is for CT CAP, evaluate for metastatic disease and to identify an area most amenable for biopsy. CA-125 ordered. Bone scan ordered. Concerns and plan were discussed with the patient and her . They agreed with the additional studies and patient is agreeable to biopsy. Doctor attests: I performed a history and physical examination of this patient, developed impression and plan of care, discussed with dictator. I agree with dictators note, documented as a scribe.
[2019-03-13] MEDS: KETOROLAC 30 MG/ML 1 ML VIAL IVP PRN ×2 (02:35→09:05)
[2019-03-13] MEDS: MORPHINE SULFATE 4 MG/ML SYRINGE IV PRN ×3 (02:36→16:44)
[2019-03-13] MEDS: SODIUM CHLORIDE 0.9% 1,000 ML IV SCH (04:46)
[2019-03-13] MEDS: LEVOTHYROXINE 100 MCG TAB PO SCH (05:37)
[2019-03-13 05:47] VITALS: RESP 16
[2019-03-13] MEDS ORDERED: PANTOPRAZOLE 40 MG TABLET PO SCH (09:00)
[2019-03-13] MEDS: CHOLECALCIFEROL 1,000 UNIT TAB PO SCH (09:07)
[2019-03-13] MEDS: LISINOPRIL 10 MG TAB PO SCH (09:07)
[2019-03-13 09:53] LABS: Prothrombin Time 10.5 sec (9.0-12.0)
[2019-03-13 12:12] VITALS: TEMP 97.9
[2019-03-13 12:58] VITALS: BP 143/75; PULSE 96
--- NOTE | 2019-03-13 13:48 | CT ---
EXAMINATION TYPE: CT biopsy lymph node DATE OF EXAM: 03/13/2019 COMPARISON: 03/12/2019 HISTORY: Retroperitoneal mass CT DLP: 957mGycm Findings: The procedure was explained to the patient. The risks, complications, benefits, and alternatives wer e discussed and any questions were answered. Informed consent was obtained. Patient was placed pron e on the CT table and prepped and draped in the usual sterile fashion. All elements of maximal barrier and sterile technique utilized. Utilizing CT guidance, an 18 gauge core biopsy needle access into the retroperitoneal mass was achiev ed and two18 gauge core samples or obtained. The patient was stable throughout the procedure and rem ained stable upon discharge. IMPRESSION: 1. Successful 18 gauge core biopsy of retroperitoneal mass.
[2019-03-13] MEDS ORDERED: traMADol 50 MG TAB PO SCH (14:15)
--- NOTE | 2019-03-13 15:12 | P.PN ---
Progress Note - Text Progress Note Date: 03/13/19 Patient is a very pleasant 58-year-old female who is seen and examined the bedside for follow-up evaluation of low back pain and L3 pathologic fracture. Patient has been experiencing increased left-sided low back pain over the past month without injury. She is also following with Dr. Rod in the outpatient setting. She has had loss of appetite with increased weight loss and states she has lost approximately 30 pounds. Her pain became so severe she presented to the emergency department yesterday, 03/11/2019, for further evaluation. Computed tomography scan was taken emergency department which showed evidence of a pathologic fracture at L3 as well as findings which could indicate lymphoma. Computed tomography scan of the chest, abdomen, pelvis and whole-body nuclear bone scan was performed yesterday. Patient has also had an Exos LSO brace fitted and delivered to the bedside. She's been wearing this brace without difficulty and feels her back pain is been better controlled with this brace intact. She continues to deny any lower extremity weakness or radiculopathy bilaterally. She is eating and the bedside without significant difficulty. She is scheduled to have an MRI of the lumbar spine with and without contrast today at approximately 10:15 AM. Patient also has a medical history including diabetes mellitus, hypertension, hyperlipidemia, thyroid disorder. She continues to be seen and examined by medicine and oncology. Physical exam: Patient is awake, alert, and oriented 3 Vital signs stable Good chest excursion with deep inspiration and expiration Examination of lumbar spine reveals skin is intact with no abrasions, lacerations, or bruises; no erythema, purulence or signs of infection No significant pain with palpation of the left lateral lumbar spine Exos LSO brace is currently intact Dorsiflexion, plantarflexion, and extensor hallucis longus positive sustained bilaterally Lower extremity strength 5/5 bilaterally Straight leg test negative bilateral lower extremities No signs or symptoms of DVT; no calf pain No pain with internal and external rotation of the hips bilaterally Neurovascularly intact Pertinent studies: Nuclear medicine whole-body bone scan taken on 03/12/2019: Focal radiotracer uptake within the L3 vertebral body within the non-left lateral compression fracture deformity again to be pathologic and correlate with MRI of the lumbar spine to evaluate for bone marrow replacement process; punctate abnormal radiotracer focus overlying the left 11th rib however no discrete CT correlation is appreciated; degenerative changes in the axilla and a ventricular skeleton with additional focal loculation radiotracer in the right medial plateau and may be related to compartment arthropathy CT of the lumbar spine taken on 03/11/2019: Left lateral compression fracture deformity of the L3 vertebral body with indistinct margins that could represent pathologic fracture in which MRI of the lumbar spine to evaluate for bone marrow replacing process and bone marrow edema; retroperitoneal adenopathy in the thorax, abdomen, and pelvis in which lymphoma should be considered; moderate multilevel degenerative disc disease in the lumbar spine resulting in L1-2 mild spinal canal stenosis, L3-4 moderate spinal canal stenosis, L4-5 severe spinal canal stenosis, and L5-S1 moderate spinal canal stenosis; variable degrees of neuroforaminal narrowing; Adenopathy creating moderate left hydroureteronephrosis as the adenopathy encases the left mid ureter Assessment: Acute left-sided low back pain L3 pathologic compression fracture deformity Retroperitoneal adenopathy in the thorax, abdomen, and pelvis in which lymphoma should be considered Hydroureter on the left History of uterine cancer with hysterectomy and radiation in 2013 Recent weight loss and lack of appetite History of diabetes mellitus, hypertension, hyperlipidemia, and thyroid disorder Plan: 1. We will continue with conservative treatment. Exos LSO brace has been delivered and fitted for the patient appropriately. She has been wearing this brace as instructed and has had better control of her back pain since that time. We discussed she should wear this brace while sitting upright at greater than 45, during increase activities, during ambulation. Brace does not have to be worn while lying in bed or while bathing. Given the findings of the computed tomography scan, we will also plan to obtain an MRI of the lumbar spine with and without contrast for further evaluation which was scheduled for today. This imaging will be reviewed by myself and Dr. Anthony Katz. We will follow up with the patient following the completion of this MRI and reviewing of imaging to discuss further treatment options. We also discussed patient will be cleared for discharge from an orthopedic spine standpoint once cleared by other medical providers. 2. Patient will continue be seen and examined by Dr. Rod in medicine. 3. Patient will continue to be seen and examined by oncology 4. Patient has been discussed in detail with Dr. Anthony Ktaz and he agrees with this plan
--- NOTE | 2019-03-13 15:17 | P.PN ---
Subjective Progress Note Date: 03/13/19 Principal diagnosis: intractable back pain, Hx uterine malignancy In f/u pt pain is fairly well controlled, no other acute c/o, eating and ambulatory Objective - Vital Signs Vital signs: Vital Signs Temp 97.9 F 03/13/19 11:30 Pulse 96 03/13/19 12:35 Resp 16 03/13/19 12:35 BP 143/75 03/13/19 12:35 Pulse Ox 99 03/13/19 12:35 Intake & Output 03/12/19 03/13/19 03/13/19 18:59 06:59 18:59 Intake Total 1800 1920 1150 Output Total 1080 Balance 8200 376 0944 Weight 62.142 kg Intake: Intake, IV Titration 700 400 700 Amount Sodium Chloride 0.9% 1, 700 400 700 000 ml @ 100 mls/hr IV . Q10H [facility] Rx#:[id number] Oral 1100 1520 450 Output: Urine 1080 Other: Voiding Method Toilet Toilet Toilet # Voids 2 2 3 - Constitutional General appearance: Present: average body habitus, cooperative, no acute distress - EENT Eyes: Present: anicteric sclerae, EOMI ENT: Present: hearing grossly normal - Respiratory Details: respirations even and unlabored - Cardiovascular Details: skin warm and dry, no swelling - Integumentary Integumentary: Present: normal - Neurologic Neurologic: Present: CNII-XII intact - Musculoskeletal Musculoskeletal: Present: strength equal bilaterally - Psychiatric Psychiatric: Present: A&O x's 3, appropriate affect, intact judgment & insight - Labs CBC & Chem 7: 03/11/19 11:37 03/11/19 11:37 Labs: Abnormal Lab Results - Last 24 Hours (Table) 03/11/19 Range/Units 11:37 CA 125 Antigen 156.9 H (0.0-30.1) U/mL - Imaging and Cardiology CT scan - abdomen: report reviewed CT scan - chest: report reviewed CT scan - pelvis: report reviewed NM bone scan report reviewed Ca125 reviewed Assessment and Plan (1) History of uterine cancer Current Visit: Yes Status: Acute Priority: High Code(s): Z85.42 - PERSONAL HISTORY OF MALIGNANT NEOPLASM OF OTH PRT UTERUS SNOMED Code(s): 488303537 (2) Retroperitoneal lymphadenopathy Current Visit: Yes Status: Acute Priority: High Code(s): R59.0 - LOCALIZED ENLARGED LYMPH NODES SNOMED Code(s): 281832955 Plan: Dr. Blair discussed concerning findings on workup. CT CAP, 7.4cm retroperitoneal adenopathy, lt iliac chain and retrocural adenopathy and soft tissue erosion of L3, compression deformity on NM bone scan. CA-125 156. Pt agreeable to proceed with biopsy. Reports and results of scans and pathology need to be sent to Dr. Bateman at [facility], pt primary Oncologist. Nursing will get CD of scans, will make sure path gets to Dr. Bateman. Pt is ok from Hem/Onc to be discharged after procedures and once cleared by Attending and Consulting Physicians Acute pain mgmt per Attending as pt will be in f/u out of town and not seen locally Orthopedics has ordered MRI spine, pending recommendations Doctor attests: I performed a history and physical examination of this patient, developed impression and plan of care, discussed with dictator. I agree with dictators note, documented as a scribe.
--- NOTE | 2019-03-13 15:35 | MR ---
EXAMINATION TYPE: MR lumbar spine wo/w con DATE OF EXAM: 03/13/2019 COMPARISON: CT lumbar spine March 11, 2019 HISTORY: L3 pathologic fx/retroperitoneal adenopathy TECHNIQUE: Multiplanar, multisequence images of the lumbar spine is performed without and with IV contrast, util izing 6 mL intravenous Gadavist FINDINGS: Sagittal images of the lumbar spine redemonstrates fracture through anterior superior L3 ve rtebra with linear T1 signal sagittal image 7 that shows low T1 and T2 signal with enhancement extend ing into the anterior soft tissue correlates to soft tissue mass at this level on CT displacing the a brooks anteriorly. Alignment is satisfactory. Other vertebral body heights are maintained. Multilevel d isc desiccation and mild disc space narrowing is identified. Multilevel small posterior disc herniati ons are seen on sagittal images. Conus medullaris and superior L2 level without abnormal signal. Axial images at the T12-L1 level show mild broad disc bulge mildly effacing anterior thecal sac. Axial images at the L1-L2 level show mild broad disc bulge mildly effaces the anterior thecal sac. Axial images at the L2-L3 level show mild broad disc bulge minimally effacing anterior thecal sac and causing mild left-sided anterior inferior neural foraminal narrowing. Axial images at the L3-L4 level show moderate broad disc bulge with central disc protrusion component facing anterior thecal sac. There is mild facet degenerative changes ligament flavum hypertrophy. Th ere is mild left-sided anterior inferior neural foraminal narrowing. Axial images at the L4-L5 level due to mild/moderate facet degenerative changes bilaterally with broa d disc bulge and has right paracentral disc protrusion component. There is effacement of the anterior thecal sac. There is mild right-sided anterior inferior neural foraminal narrowing. Axial images at the L5-S1 level show annular tear with central and left lateral/foraminal disc protru saima, there is moderate to severe inferior left-sided neural foraminal narrowing. Right-sided neural foramen is patent. There is minimal effacement of anterior thecal sac. Correlating with CT there are multiple heterogeneous retroperitoneal mass is displacing the aorta ant eriorly. Some are rounded in contour and others are more confluent and ill-defined. Extension into th e anterior L3 vertebra is noted sagittal image 5 and axial image 16 along the left aspect. Lymphoma w ould BE favored given involvement above and below diaphragm on recent CT. Typically does not cause kimi ny destruction which is somewhat unusual. Correlate with biopsy results from earlier today. IMPRESSION: As above.
--- NOTE | 2019-03-13 16:28 | P.DS ---
Providers Date of admission: 03/11/19 12:52 Expected date of discharge: 03/14/19 Attending physician: Teodoro Rod Consults: 03/11/19 12:52 Consult Physician Stat Consulting Provider: Charles Blair Consult Reason/Comments: Lymphadenopathy, Mets, Hx uterine CA Do you want consulting provider notified?: Yes Consult Physician Stat Consulting Provider: Jae Katz Consult Reason/Comments: Pathologic fracture L3 Do you want consulting provider notified?: Yes Primary care physician: Teodoro Rod [facility] Course: Final Diagnoses: (1) Adenopathy, rectroperitoneal in the thorax, abdomen and pelvis, possible lymphoma Current Visit: Yes Status: Acute Code(s): R59.1 - GENERALIZED ENLARGED LYMPH NODES SNOMED Code(s): 13180958 (2) Pathologic fracture,L3 Current Visit: Yes Status: Acute Code(s): M84.40XA - PATHOLOGICAL FRACTURE, UNSP SITE, INIT ENCNTR FOR FRACTURE SNOMED Code(s): 152855686 (3) Hydroureter on left Current Visit: Yes Status: Acute Code(s): N13.4 - HYDROURETER SNOMED Code(s): 07583980 (4) Weight loss, recent Current Visit: Yes Status: Acute Code(s): R63.4 - ABNORMAL WEIGHT LOSS SNOMED Code(s): 92865676 5) Hypothyroidism Current Visit: Yes Status: Acute Code(s): E03.9 - HYPOTHYROIDISM, UNSPECIFIED SNOMED Code(s): 75554719 (6) history of uterine cancer status post hysterectomy, radiation Hospital course:This is a pleasant 58-year-old white female who initially presented to my office with acute low back pain and strain. She was set up for outpatient CT scans and x-rays but came to the hospital for intractable pain last evening. She has cancer of the uterus. And it appears the patient may have some metastatic disease versus lymphoma process. There is multiple areas of concern including the lumbar spine she currently is admitted for pain control and further evaluation with oncology services in orthopedics. CT reported evidence of pathologic fracture at L3, possible lymphoma. Evaluated by both oncology and orthopedics. Retroperitoneal mass Biopsy pending, MRI of lumbar spine scheduled for later today. CT of chest abdomen pelvis as well as whole-body nuclear bone scan completed, reporting retroperitoneal lymphaden opathy, soft tissue erosion at L3 with compression deformity-refer to official reports. CA-125 156. Significant improvement in pain on current medication regimen in addition to LSO brace. Patient has been cleared for discharge by both oncology and orthopedic spine pending completion of biopsy, MRI. Pain management-significant clinical improvement. Patient will be discharged home after biopsy, pending MRI in a stable condition with guarded prognosis. Patient to follow up with her own oncologist, Dr. Bateman. GENERAL: Alert and oriented 3, no acute distress, wearing brace. RESPIRATORY: Clear to auscultation. No wheezes, rales, or rhonchi. CARDIOVASCULAR: Regular rate and rhythm. S1 and S2 noted. No systolic or diastolic murmur auscultated. No JVD noted. No S3 or S4 noted. GASTROINTESTINAL: No distention noted. Abdomen soft and round. Normal active bowel sounds. NEUROLOGIC: Cranial nerves II-XII intact. The impression and plan of care has been dictated as directed. : I performed a history and examination of this patient, discussed the same with the dictator. I agree with the dictator's note ,documented as a scribe. Any additional findings or plans will be noted. Time taken: 35 minutes Patient Condition at Discharge: Stable Plan - Discharge Summary Discharge Rx Participant: No New Discharge Prescriptions: New Pantoprazole [Protonix] 40 mg PO DAILY #30 tablet. traMADol HCl [Ultram] 50 mg PO Q6H PRN #1 tab PRN Reason: Pain Continue Lisinopril [Prinivil] 10 mg PO DAILY Levothyroxine Sodium [Synthroid] 100 mcg PO DAILY Cholecalciferol [Vitamin D3] 1,000 unit PO DAILY Discontinued traMADol HCL [Ultram] 50 mg PO Q6H Discharge Medication List Cholecalciferol [Vitamin D3] 1,000 unit PO DAILY 03/11/19 [History] Levothyroxine Sodium [Synthroid] 100 mcg PO DAILY 03/11/19 [History] Lisinopril [Prinivil] 10 mg PO DAILY 03/11/19 [History] Pantoprazole [Protonix] 40 mg PO DAILY #30 tablet. 03/13/19 [Rx] traMADol HCl [Ultram] 50 mg PO Q6H PRN #1 tab 03/13/19 [Rx] Follow up Appointment(s)/Referral(s): Charles Blair MD [STAFF PHYSICIAN] - 03/20/19 3:45 pm (appt at [facility] office) Teodoro Rod DO [Primary Care Provider] - 3 Days (office is only opened until noon on monday,patient will have to call and schedule own appt;) Gerardo Mcdowell PAC [PHYSICIAN PMO MANAGER] - 04/05/19 9:15 am (Patient may follow-up with Gerardo Mcdowell PA-C or Dr. Anthony Katz at [facility] in 2-3 weeks following discharge. ) Amanuel Bateman MD [REFERRING] - 3 Days Activity/Diet/Wound Care/Special Instructions: MRI & final clearance pending from ONcology. Patient to continue on home medication tramadol for pain and follow up with oncologist next week. 1. Patient may wear LSO brace for comfort and support while sitting upright at greater than 45, while working with therapy, and while ambulating; patient does not have to wear the brace while lying in bed or bathing 2. Patient should avoid excessive bending, twisting, and lifting; no lifting greater than 10 pounds
== END 2019-03-13 17:11 | disposition home or self-care (01) | DRG 357 ==
LOC: EC 10:07 → 3NMEDONC 12:52
PROVIDERS: ADMIT Family Medicine; ATTEND Family Medicine
PROC: 07BC3ZX Excision of Pelvis Lymphatic, Percutaneous Approach, Diagnostic (ICD-10-PCS; principal; 2019-03-13)
DX: C78.6 Secondary malignant neoplasm of retroperitoneum and peritoneum (principal); M48.56XA Collapsed vertebra, not elsewhere classified, lumbar region, initial encounter for fracture; C85.90 Non-Hodgkin lymphoma, unspecified, unspecified site; C79.51 Secondary malignant neoplasm of bone; N13.4 Hydroureter; E11.42 Type 2 diabetes mellitus with diabetic polyneuropathy; R63.4 Abnormal weight loss; R63.0 Anorexia; E78.5 Hyperlipidemia, unspecified; M51.36 Other intervertebral disc degeneration, lumbar region; I10 Essential (primary) hypertension; E03.9 Hypothyroidism, unspecified; G89.3 Neoplasm related pain (acute) (chronic); Z71.3 Dietary counseling and surveillance; Z68.22 Body mass index [BMI] 22.0-22.9, adult; Z79.890 Hormone replacement therapy; Z79.899 Other long term (current) drug therapy; Z90.710 Acquired absence of both cervix and uterus; Z85.42 Personal history of malignant neoplasm of other parts of uterus; Z92.3 Personal history of irradiation; Z91.040 Latex allergy status; Z82.49 Family history of ischemic heart disease and other diseases of the circulatory system; Z83.49 Family history of other endocrine, nutritional and metabolic diseases
CPT/HCPCS: 36415; 38505; 71260; 72131; 72158; 74177; 77012; 78306; 80048; 81001; 85025; 85610; 86304; 88305; 88341; 88342; 96374; 96375; 99285

== ENCOUNTER 2019-03-28 06:17 | Emergency (ER) | payer OTHER ==
[2019-03-28] MEDS ORDERED: ONDANSETRON 4 MG/2 ML VIAL IVP STA (07:20)
[2019-03-28] MEDS ORDERED: SODIUM CHLORIDE 0.9% 500 ML 500 ML IV ONE (07:20)
[2019-03-28] MEDS ORDERED: MORPHINE SULFATE 4 MG/ML SYRINGE IVP STA (07:20)
--- NOTE | 2019-03-28 07:26 | ED ---
Back Pain HPI - General Chief Complaint: Back Pain/Injury Stated Complaint: Back Pain Time Seen by Provider: 03/28/19 07:07 Source: patient Limitations: no limitations - History of Present Illness Initial Comments: 58-year-old female presenting today for chief complaint of low back pain. Patient states she is recently diagnosed with a new cancer in the "back" she states she has a history of uterine cancer and had a complete hysterectomy as well as multiple rounds of chemotherapy in 2012. Patient states she did have a biopsy perfromed in the last 2 weeks however has not received the results. Patient states that her initial presentation on 03/11 was due to the same low bora k pain she is experiencing today. She denies any change in characteristic for states is not controlled with the [place] she was prescribed outpatient. Described as an aching pain of the lower back without radiation. Increases with movement denies a specific alleviating factors. She denies any fever chills or night sweats. She denies any loss of bowel bladder control. She denies any urinary retention abdominal pain chest pain or shortness of breath. She denies a loss sensation or muscle weakness of the lower extremities. Remaining ROS negative - Related Data Home Medications Medication Instructions Recorded Confirmed Cholecalciferol [Vitamin D3 (25 1,000 unit PO DAILY 03/11/19 03/28/19 Mcg = 1000 Iu)] Levothyroxine Sodium [Synthroid] 100 mcg PO DAILY 03/11/19 03/28/19 Lisinopril [Prinivil] 10 mg PO DAILY 03/11/19 03/28/19 HYDROcodone/APAP 10-325MG [[place] 1 tab PO Q6HR PRN 03/28/19 03/28/19 10-325] Previous Rx's Medication Instructions Recorded Pantoprazole [Protonix] 40 mg PO DAILY #30 tablet. 03/13/19 Ondansetron Odt [Zofran Odt] 4 mg PO Q8HR PRN 7 Days #21 tab 03/28/19 oxyCODONE HCL/ACETAMINOPHEN 1 tab PO Q4HR PRN 3 Days #18 tab 03/28/19 [Percocet 5-325 mg] Allergies Allergy/AdvReac Type Severity Reaction Status Date / Time latex Allergy Rash/Hives Verified 03/28/19 08:53 Review of Systems ROS Statement: Those systems with pertinent positive or pertinent negative responses have been documented in the HPI. ROS Other: All systems not noted in ROS Statement are negative. Past Medical History Past Medical History: Cancer, Diabetes Mellitus, Hyperlipidemia, Hypertension, Thyroid Disorder Additional Past Medical History / Comment(s): 2012 Uterine cancer with hysterectomy and radiation, NIDDM-no longer on medication d/t wt loss, neuropathy bilateral feet, hypothyroid. History of Any Multi-Drug Resistant Organisms: None Reported Past Surgical History: Section, Hysterectomy, Orthopedic Surgery Additional Past Surgical History / Comment(s): x 2, L foot bone spur Past Anesthesia/Blood Transfusion Reactions: Motion Sickness, Postoperative Nausea & Vomiting (PONV) Past Psychological History: No Psychological Hx Reported Smoking Status: Never smoker Past Alcohol Use History: None Reported Past Drug Use History: None Reported - Past Family History Father Family Medical History: Myocardial Infarction (NM) Additional Family Medical History / Comment(s): Father had a NM at the age of 85 yrs. Mother Family Medical History: Osteoarthritis (OA), Skin Disorder, Thyroid Disorder Additional Family Medical History / Comment(s): Psoriasis. General Exam - General Exam Comments Initial Comments: General: The patient is awake and alert, in no distress, and does not appear acutely ill. Eye: Pupils are equal, round and reactive to light, extra-ocular movements are intact. No nystagmus. There is normal conjunctiva bilaterally. No signs of icterus. Ears, nose, mouth and throat: There are moist mucous membranes and no oral les ions. Neck: The neck is supple, there is no tenderness or JVD. Cardiovascular: There is a regular rate and rhythm. No murmur, rub or gallop is appreciated. Respiratory: Lungs are clear to auscultation, respirations are non-labored, breath sounds are equal. No wheezes, stridor, rales, or rhonchi. Gastrointestinal: Soft, non-distended, non-tender abdomen without masses or organomegaly noted. There is no rebound or guarding present. Bowel sounds are unremarkable. Musculoskeletal: Paravertebral and midline tenderness to palpation of the lumbar spine near ~L3. Normal ROM, no tenderness. Strength 5/5 of the lower extremities equal in comparison bilaterally. Sensation intact of the lower extremities equal in comparison b/l. DP and radial pulses equal bilaterally 2+. Neurological: A&O x 3. CN II-XII intact, There are no obvious motor or sensory deficits. Coordination appears grossly intact. Speech is normal. Skin: Skin is warm and dry and no rashes or lesions are noted. Psychiatric: Cooperative, appropriate mood & affect, normal judgment. Limitations: no limitations Course Vital Signs 03/28/19 06:18 Temperature 97.9 F Pulse Rate 68 Respiratory 18 Rate Blood Pressure 134/87 O2 Sat by Pulse 98 Oximetry Medical Decision Making - Medical Decision Making Well-appearing 58-year-old female with recent diagnosis of cancer in the re troperitoneal cavity. Presenting for low back pain. She denies any change in characteristic from her initial diagnosis 03/11. Patient denies constitutional symptoms she denies signs of cauda equina there are no evidence of weakness or sensation deficits on examination. Patient states she presented for pain management. Patient states her [place] was are not helping at home. Patient does have an appointment 04/[address] Katz. Patient states that she does get nauseous with the codeine at times. Patient provided Zofran and morphine in the ER. Will be discharge with new prescription for percocet and zofran pt is to f/u with Dr. Blair, and primary care provider. Pt is agreeable with discharge and plan. Patient is aware of the risks of overdose using opioids. I recommended discontinuation of [place]. Patient verbalized understanding the importance of discontinuation. Patient takes stool softener at home. Discussed case with Dr. Fatima who is agreeable with plan. - Lab Data Result diagrams: 03/28/19 08:45 03/28/19 08:45 Lab Results 03/28/19 03/28/19 03/28/19 Range/Units 08:45 08:45 08:45 WBC 10.8 H (3.8-10.6) k/uL RBC 4.36 (3.80-5.40) m/uL Hgb 12.2 (11.4-16.0) gm/dL Hct 37.2 (34.0-46.0) % MCV 85.3 (80.0-100.0) fL MCH 28.0 (25.0-35.0) pg MCHC 32.8 (31.0-37.0) g/dL RDW 14.6 (11.5-15.5) % Plt Count 421 (150-450) k/uL Neutrophils % 67 % Lymphocytes % 20 % Monocytes % 9 % Eosinophils % 2 % Basophils % 1 % Neutrophils # 7.2 (1.3-7.7) k/uL Lymphocytes # 2.1 (1.0-4.8) k/uL Monocytes # 1.0 (0-1.0) k/uL Eosinophils # 0.2 (0-0.7) k/uL Basophils # 0.1 (0-0.2) k/uL Sodium 136 L (137-145) mmol/L Potassium 4.4 (3.5-5.1) mmol/L Chloride 101 (98-107) mmol/L Carbon Dioxide 25 (22-30) mmol/L Anion Gap 10 mmol/L BUN 17 (7-17) mg/dL Creatinine 0.86 (0.52-1.04) mg/dL Est GFR (CKD-EPI)AfAm 86 (>60 ml/min/1.73 sqM) Est GFR (CKD-EPI)NonAf 74 (>60 ml/min/1.73 sqM) Glucose 171 H (74-99) mg/dL Calcium 10.1 (8.4-10.2) mg/dL Total Bilirubin 0.7 (0.2-1.3) mg/dL AST 22 (14-36) U/L ALT 30 (9-52) U/L Alkaline Phosphatase 156 H (38-126) U/L Total Protein 7.6 (6.3-8.2) g/dL Albumin 4.0 (3.5-5.0) g/dL Urine Color Yellow Urine Appearance Clear (Clear) Urine pH 6.5 (5.0-8.0) Ur Specific [place] 1.021 (1.001-1.035) Urine Protein Trace H (Negative) Urine Glucose (UA) Negative (Negative) Urine Ketones Trace H (Negative) Urine Blood Negative (Negative) Urine Nitrite Negative (Negative) Urine Bilirubin Negative (Negative) Urine Urobilinogen <2.0 (<2.0) mg/dL Ur Leukocyte Esterase Trace H (Negative) Urine WBC 2 (0-5) /hpf Ur Squamous Epith Cells 1 (0-4) /hpf Urine Mucus Rare H (None) /hpf Disposition Clinical Impression: Back pain, Retroperitoneal mass Disposition: HOME SELF-CARE Condition: Good Additional Instructions: Please use medication as discussed. Please follow-up with family doctor in the next 2 days, Dr. Blair as discussed. Please return to emergency room if the symptoms increase or worsen or for any other concerns-developed and a fever, numbness of the lower extremities, muscle weakness of the lower extremities increasing pain or any other concerning signs or symptoms. Prescriptions: oxyCODONE HCL/ACETAMINOPHEN [Percocet 5-325 mg] 1 tab PO Q4HR PRN 3 Days #18 tab PRN Reason: Severe Pain Ondansetron Odt [Zofran Odt] 4 mg PO Q8HR PRN 7 Days #21 tab PRN Reason: Nausea Is patient prescribed a controlled substance at d/c from ED?: Yes When asked, does pt state using other controlled substances?: Yes If prescribed controlled substance>3 days was MAPS reviewed?: Prescribed <3 Days If opioid is for acute pain is fill amount 7 days or less?: Yes If Rx opioid, was Start Talking consent form obtained?: Yes Referrals: Teodoro Rod DO [Primary Care Provider] - 1-2 days Charles Blair MD [STAFF PHYSICIAN] - 1-2 days Time of Disposition: 09:23
[2019-03-28] MEDS ORDERED: SODIUM CHLORIDE 0.9% 1,000 ML IV ONE (08:34)
[2019-03-28 08:54] LABS: Basophils # (A) 0.1 k/uL (0-0.2); Basophils % (A) 1 %; Eosinophils # (A) 0.2 k/uL (0-0.7); Eosinophils % (A) 2 %; HCT 37.2 % (34.0-46.0); HGB 12.2 gm/dL (11.4-16.0); Lymphocytes # (A) 2.1 k/uL (1.0-4.8); Lymphocytes % (A) 20 %; MCHC 32.8 g/dL (31.0-37.0); MCV 85.3 fL (80.0-100.0); Mean Platelet Volume 7.7; Monocytes % (A) 9 %; Neutrophils # (A) 7.2 k/uL (1.3-7.7); Neutrophils % (A) 67 %; Platelet Count 421 k/uL (150-450); RBC 4.36 m/uL (3.80-5.40); RDW 14.6 % (11.5-15.5); WBC 10.8 k/uL (3.8-10.6)
[2019-03-28] MEDS ORDERED: HYDROmorphone 0.5 MG/0.5 ML SYRINGE IVP STA (08:55)
[2019-03-28 09:00] LABS: Appearance,Urine Clear (Clear); Bilirubin,Urine Negative (Negative); Blood,Urine Negative (Negative); Color,Urine Yellow; Glucose,Urine (UA) Negative (Negative); Ketones,Urine Trace (Negative); Leukocyte Esterase,Urine Trace (Negative); Mucus,Urine Rare /hpf; Nitrite,Urine Negative (Negative); PH, Urine 6.5 (5.0-8.0); Protein,Urine Trace (Negative); Specific Gravity,Urine 1.021 (1.001-1.035); Squamous Epithelial Cell,Urine 1 /hpf (0-4); Urobilinogen,Urine <2.0 mg/dL (<2.0); WBC,Urine 2 /hpf (0-5)
[2019-03-28 09:03] LABS: Calcium 10.1 mg/dL (8.4-10.2); Potassium 4.4 mmol/L (3.5-5.1); Total Bilirubin 0.7 mg/dL (0.2-1.3); Total Protein 7.6 g/dL (6.3-8.2)
[2019-03-28 09:56] VITALS: BP 108/71; PULSE 84; RESP 16; TEMP 98
== END 2019-03-28 12:29 | disposition home or self-care (01) ==
LOC: EC 06:17
DX: M54.5 Low back pain (principal); R19.00 Intra-abdominal and pelvic swelling, mass and lump, unspecified site; I10 Essential (primary) hypertension; E03.9 Hypothyroidism, unspecified; Z85.42 Personal history of malignant neoplasm of other parts of uterus; Z79.890 Hormone replacement therapy; Z79.899 Other long term (current) drug therapy; Z91.040 Latex allergy status; Z92.21 Personal history of antineoplastic chemotherapy
CPT/HCPCS: 36415; 80053; 85025; 81001; 99283; 96374; 96375 ×2; 96361 ×2; J2270; J2405; J1170

== ENCOUNTER 2019-04-25 05:59 | Emergency (ER) | payer OTHER ==
[2019-04-25 06:02] VITALS: TEMP 98.1
[2019-04-25 06:39] LABS: Basophils % (A) 1 %; Eosinophils # (A) 0.1 k/uL (0-0.7); Eosinophils % (A) 2 %; HCT 36.7 % (34.0-46.0); HGB 11.8 gm/dL (11.4-16.0); Hypochromasia Slight; Lymphocytes # (A) 1.9 k/uL (1.0-4.8); Lymphocytes % (A) 30 %; MCH 27.4 pg (25.0-35.0); MCHC 32.1 g/dL (31.0-37.0); MCV 85.4 fL (80.0-100.0); Mean Platelet Volume 8.5; Monocytes # (A) 0.1 k/uL (0-1.0); Monocytes % (A) 2 %; Neutrophils # (A) 4.1 k/uL (1.3-7.7); Neutrophils % (A) 65 %; Platelet Count 278 k/uL (150-450); RDW 15.6 % (11.5-15.5); WBC 6.3 k/uL (3.8-10.6)
[2019-04-25 06:50] LABS: Albumin 4.3 g/dL (3.5-5.0); Calcium 9.9 mg/dL (8.4-10.2); Total Bilirubin 1.2 mg/dL (0.2-1.3); Total Protein 8.5 g/dL (6.3-8.2)
[2019-04-25] MEDS ORDERED: SODIUM CHLORIDE 0.9% 500 ML 250 ML IV ONE (06:56)
--- NOTE | 2019-04-25 06:56 | XR ---
EXAM: XR Chest, 2 Views CLINICAL HISTORY: ITS.REASON XR Reason: difficulty breathing TECHNIQUE: Frontal and lateral views of the chest. COMPARISON: No relevant prior studies available. FINDINGS: Lungs: Unremarkable. No consolidation. The pulmonary vasculature demonstrates no significant radiographic abnormality. Pleural space: Unremarkable. No pneumothorax. Heart: Unremarkable. No cardiomegaly. Mediastinum: Unremarkable. The trachea is midline. Bones/joints: Degenerative changes of the thoracic spine. No acute abnormality identified. IMPRESSION: No focal consolidation or acute cardiopulmonary process identified.
[2019-04-25 06:57] LABS: Prothrombin Time 10.6 sec (9.0-12.0)
[2019-04-25 07:01] LABS: Potassium 5.8 mmol/L (3.5-5.1)
--- NOTE | 2019-04-25 07:26 | ED ---
General Adult HPI - General Chief complaint: Shortness of Breath Stated complaint: Diff Breathing Time Seen by Provider: 04/25/19 07:10 Source: patient, family Mode of arrival: wheelchair Limitations: no limitations - History of Present Illness Initial comments: Dictation was produced using [employer] dictation software. please excuse any grammatical, word or spelling errors. Chief Complaint: 58-year-old female with past medical history of lower back cancer presents with acute onset shortness of breath since yesterday. History of Present Illness: 58-year-old female she noticed that she was severely short of breath since yesterday. Patient denies any pain complaints. Denies any exacerbating or mitigating factors. Patient has a history of lower back cancer. She sees a cancer DrAlfred Gaxiola and had received her first cancer treatment on Monday. Patient denies any lower extremity symptoms. Denies any history of cardiac disease. No history of blood clots. Patient denies any lower extremity pain or swelling. She also has been feeling generally unwell. She reports not eating or drinking over the last 48 hours. Denies any cough or constitutional symptoms. The ROS documented in this emergency department record has been reviewed and confirmed by me. Those systems with pertinent positive or negative responses have been documented in the HPI. All other systems are other negative and/or noncontributory. PHYSICAL EXAM: General Impression: Alert and oriented x3, not in acute distress HEENT: Normocephalic atraumatic, extra-ocular movements intact, pupils equal and reactive to light bilaterally, mucous membranes moist. Cardiovascular: Tachycardic, grade 2/6 systolic murmur Chest: Lungs clear to auscultation bilaterally, no rhonchi, no wheeze, no rales Abdomen: Bowel sounds present, abdomen soft, non-tender, non-distended, no organomegaly Musculoskeletal: Pulses present and equal in all extremities, no peripheral edema, no asymmetrical leg swelling, calf tenderness to palpation Motor: no focal deficits noted Neurological: CN II-XII grossly intact, no focal motor or sensory deficits noted Skin: Intact with no visualized rashes Psych: Normal affect and mood ED course: 58-year-old female presents with shortness of breath. As upon arrival shows tachycardia 133, respiratory rate of 20-24, blood pressure 87/68, 93% on room air Given patient's risk factors are strong clinical suspicion of pulmonary embolus at this time. D-dimer was ordered by previous shift physician. Patient however was sent to CT angioma. Labs were obtained. CBC unremarkable. Cardiac panel unremarkable. Blood gases shows mild alkalosis slightly metabolic. Potassium 5.8 but with slight hemolysis. Rest of labs shows troponin of 0.041. CT angios the chest shows bilateral pulmonary emboli with RV strain. Patient's blood pressures improved with intravenous fluids. At this point patient's clinical presentation consistent with submassive PE. Given elevated troponin and size and location of pulmonary emboli patient may be candidate for EKOS therapy. Patient transferred to [facility] for further intervention. Patient is maintained on high-dose heparin infusion. At time of transfer patient is c linical stable at this time. Discussed patient with Dr. Godoy from [facility] was willing to accept the transfer. EKG interpretation: Ventricular rate 140 sinus tachycardia, MA interval 112, car e is 80, QTc 558. No MA prolongation, no ST or T-wave changes noted. - Related Data Home Medications Medication Instructions Recorded Confirmed Levothyroxine Sodium [Synthroid] 100 mcg PO DAILY 03/11/19 04/25/19 Lisinopril [Prinivil] 10 mg PO DAILY 03/11/19 04/25/19 Atorvastatin [Lipitor] 40 mg PO HS 04/25/19 04/25/19 Previous Rx's Medication Instructions Recorded Ondansetron Odt [Zofran Odt] 4 mg PO Q8HR PRN 7 Days #21 tab 03/28/19 Allergies Allergy/AdvReac Type Severity Reaction Status Date / Time latex Allergy Rash/Hives Verified 04/25/19 07:45 Review of Systems ROS Statement: Those systems with pertinent positive or pertinent negative responses have been documented in the HPI. ROS Other: All systems not noted in ROS Statement are negative. Past Medical History Past Medical History: Cancer, Diabetes Mellitus, Hyperlipidemia, Hypertension, Thyroid Disorder Additional Past Medical History / Comment(s): 2012 Uterine cancer with hysterectomy and radiation, NIDDM-no longer on medication d/t wt loss, neuropathy bilateral feet, hypothyroid. History of Any Multi-Drug Resistant Organisms: None Reported Past Surgical History: Section, Hysterectomy, Orthopedic Surgery Additional Past Surgical History / Comment(s): x 2, L foot bone spur Past Anesthesia/Blood Transfusion Reactions: Motion Sickness, Postoperative Nausea & Vomiting (PONV) Past Psychological History: No Psychological Hx Reported Smoking Status: Never smoker Past Alcohol Use History: None Reported Past Drug Use History: None Reported - Past Family History Father Family Medical History: Myocardial Infarction (PA) Additional Family Medical History / Comment(s): Father had a PA at the age of 85 yrs. Mother Family Medical History: Osteoarthritis (OA), Skin Disorder, Thyroid Disorder Additional Family Medical History / Comment(s): Psoriasis. General Exam Limitations: no limitations Course Vital Signs 04/25/19 04/25/19 04/25/19 06:00 06:28 06:30 Temperature 98.1 F Pulse Rate 153 H 134 H Respiratory 18 19 19 Rate Blood Pressure 83/59 99/71 O2 Sat by Pulse 93 L 98 Oximetry 04/25/19 04/25/19 04/25/19 06:50 07:00 09:00 Temperature Pulse Rate 133 H 133 H 124 H Respiratory 20 24 18 Rate Blood Pressure 87/68 82/65 107/72 O2 Sat by Pulse 98 98 98 Oximetry Medical Decision Making - Lab Data Result diagrams: 04/25/19 06:25 04/25/19 06:25 Lab Results 04/25/19 04/25/19 04/25/19 Range/Units 06:25 06:25 06:25 WBC 6.3 (3.8-10.6) k/uL RBC 4.30 (3.80-5.40) m/uL Hgb 11.8 (11.4-16.0) gm/dL Hct 36.7 (34.0-46.0) % MCV 85.4 (80.0-100.0) fL MCH 27.4 (25.0-35.0) pg MCHC 32.1 (31.0-37.0) g/dL RDW 15.6 H (11.5-15.5) % Plt Count 278 (150-450) k/uL Neutrophils % 65 % Lymphocytes % 30 % Monocytes % 2 % Eosinophils % 2 % Basophils % 1 % Neutrophils # 4.1 (1.3-7.7) k/uL Lymphocytes # 1.9 (1.0-4.8) k/uL Monocytes # 0.1 (0-1.0) k/uL Eosinophils # 0.1 (0-0.7) k/uL Basophils # 0.0 (0-0.2) k/uL Hypochromasia Slight PT 10.6 (9.0-12.0) sec INR 1.0 (<1.2) APTT 18.3 L (22.0-30.0) sec D-Dimer 34.11 H (<0.60) mg/L FEU VBG pH (7.31-7.41) VBG pCO2 (37-51) mmHg VBG HCO3 (24-28) mmol/L Sodium 137 (137-145) mmol/L Potassium 5.8 H (3.5-5.1) mmol/L Chloride 101 (98-107) mmol/L Carbon Dioxide 19 L (22-30) mmol/L Anion Gap 17 mmol/L BUN 30 H (7-17) mg/dL Creatinine 0.98 (0.52-1.04) mg/dL Est GFR (CKD-EPI)AfAm 73 (>60 ml/min/1.73 sqM) Est GFR (CKD-EPI)NonAf 63 (>60 ml/min/1.73 sqM) Glucose 362 H (74-99) mg/dL Calcium 9.9 (8.4-10.2) mg/dL Magnesium (1.6-2.3) mg/dL Total Bilirubin 1.2 (0.2-1.3) mg/dL AST 28 (14-36) U/L ALT 13 (9-52) U/L Alkaline Phosphatase 156 H (38-126) U/L Troponin I (0.000-0.034) ng/mL NT-Pro-B Natriuret Pep pg/mL Total Protein 8.5 H (6.3-8.2) g/dL Albumin 4.3 (3.5-5.0) g/dL 04/25/19 04/25/19 04/25/19 Range/Units 06:25 06:25 06:25 WBC (3.8-10.6) k/uL RBC (3.80-5.40) m/uL Hgb (11.4-16.0) gm/dL Hct (34.0-46.0) % MCV (80.0-100.0) fL MCH (25.0-35.0) pg MCHC (31.0-37.0) g/dL RDW (11.5-15.5) % Plt Count (150-450) k/uL Neutrophils % % Lymphocytes % % Monocytes % % Eosinophils % % Basophils % % Neutrophils # (1.3-7.7) k/uL Lymphocytes # (1.0-4.8) k/uL Monocytes # (0-1.0) k/uL Eosinophils # (0-0.7) k/uL Basophils # (0-0.2) k/uL Hypochromasia PT (9.0-12.0) sec INR (<1.2) APTT (22.0-30.0) sec D-Dimer (<0.60) mg/L FEU VBG pH (7.31-7.41) VBG pCO2 (37-51) mmHg VBG HCO3 (24-28) mmol/L Sodium (137-145) mmol/L Potassium (3.5-5.1) mmol/L Chloride (98-107) mmol/L Carbon Dioxide (22-30) mmol/L Anion Gap mmol/L BUN (7-17) mg/dL Creatinine (0.52-1.04) mg/dL Est GFR (CKD-EPI)AfAm (>60 ml/min/1.73 sqM) Est GFR (CKD-EPI)NonAf (>60 ml/min/1.73 sqM) Glucose (74-99) mg/dL Calcium (8.4-10.2) mg/dL Magnesium 2.8 H (1.6-2.3) mg/dL Total Bilirubin (0.2-1.3) mg/dL AST (14-36) U/L ALT (9-52) U/L Alkaline Phosphatase (38-126) U/L Troponin I 0.041 H* (0.000-0.034) ng/mL NT-Pro-B Natriuret Pep 279 pg/mL Total Protein (6.3-8.2) g/dL Albumin (3.5-5.0) g/dL 04/25/19 Range/Units 08:40 WBC (3.8-10.6) k/uL RBC (3.80-5.40) m/uL Hgb (11.4-16.0) gm/dL Hct (34.0-46.0) % MCV (80.0-100.0) fL MCH (25.0-35.0) pg MCHC (31.0-37.0) g/dL RDW (11.5-15.5) % Plt Count (150-450) k/uL Neutrophils % % Lymphocytes % % Monocytes % % Eosinophils % % Basophils % % Neutrophils # (1.3-7.7) k/uL Lymphocytes # (1.0-4.8) k/uL Monocytes # (0-1.0) k/uL Eosinophils # (0-0.7) k/uL Basophils # (0-0.2) k/uL Hypochromasia PT (9.0-12.0) sec INR (<1.2) APTT (22.0-30.0) sec D-Dimer (<0.60) mg/L FEU VBG pH 7.42 H (7.31-7.41) VBG pCO2 27 L (37-51) mmHg VBG HCO3 17 L (24-28) mmol/L Sodium (137-145) mmol/L Potassium (3.5-5.1) mmol/L Chloride (98-107) mmol/L Carbon Dioxide (22-30) mmol/L Anion Gap mmol/L BUN (7-17) mg/dL Creatinine (0.52-1.04) mg/dL Est GFR (CKD-EPI)AfAm (>60 ml/min/1.73 sqM) Est GFR (CKD-EPI)NonAf (>60 ml/min/1.73 sqM) Glucose (74-99) mg/dL Calcium (8.4-10.2) mg/dL Magnesium (1.6-2.3) mg/dL Total Bilirubin (0.2-1.3) mg/dL AST (14-36) U/L ALT (9-52) U/L Alkaline Phosphatase (38-126) U/L Troponin I (0.000-0.034) ng/mL NT-Pro-B Natriuret Pep pg/mL Total Protein (6.3-8.2) g/dL Albumin (3.5-5.0) g/dL Critical Care Time Critical Care Time: Yes Total Critical Care Time: 31 Disposition Clinical Impression: Pulmonary embolism Disposition: OTHER INSTITUTION NOT DEFINED Condition: Critical Referrals: Teodoro Rod DO [Primary Care Provider] - 1-2 days Time of Disposition: 09:31 - Out of Hospital Transfer - Req. Specs Out of Hospital Transfer - Requested Specifics: Other Emergency Center ([facility])
[2019-04-25 08:00] LABS: D-Dimer 34.11 mg/L FEU (<0.60); Partial Thromboplastin Time 18.3 sec (22.0-30.0)
[2019-04-25] MEDS ORDERED: HEPARIN SODIUM,PORCINE 5,000 UNIT/ML 1 ML VIAL IV PRN (08:44)
[2019-04-25] MEDS ORDERED: HEPARIN SODIUM,PORCINE 10,000 UNIT/ML 1 ML VIAL IV ONE (08:44)
[2019-04-25] MEDS ORDERED: HEPARIN SOD,PORK IN 0.45% NACL 25,000 UNIT in 0.45% NACL 1 250ML.BAG IV SCH (08:45)
--- NOTE | 2019-04-25 08:52 | CT ---
EXAMINATION TYPE: CT angio chest DATE OF EXAM: 04/25/2019 COMPARISON: CTA chest March 12, 2019 HISTORY: Difficulty breathing CT DLP: 195.6 mGycm. Automated Exposure Control for Dose Reduction was Utilized. CONTRAST: CTA scan of the thorax is performed with IV Contrast, patient injected with 73 mL of Isovue 370, pulm onary embolism protocol. MIP Images are created on CT scanner and reviewed. FINDINGS: LUNGS: There is persistent lateral right upper lung scarring axial image 34. There is dependent atele ctasis in left lung base. No suspicious nodules or masses. No pleural effusion or pneumothorax. MEDIASTINUM: There is satisfactory enhancement of the pulmonary artery and its branches, there is new large central pulmonary embolism filling the mid to distal right pulmonary artery with significant l ower lobe and segmental extension. There is new thrombus in the distal left pulmonary artery with anthony gular and lower lobe extension with additional segmental thrombus and lingular and lower lobe branche s seen peripheral to this. There are no greater than 1 cm hilar or mediastinal lymph nodes. No car diomegaly or pericardial effusion is seen. Increasing right ventricular dilatation is seen versus lef t ventricle with abnormal ratio on current study. Main pulmonary artery measures 3.1 cm the bifurcati on axial image 55. Adjacent ascending aorta measures 3.2 cm in diameter. Slight reflux of contrast in to suprahepatic IVC noted OTHER: There is redemonstration or partial visualization of mild to moderate left greater than right hydronephrosis and abnormal retroperitoneal adenopathy in the mid abdomen likely causing obstructive hydronephrosis. Mild to moderate multilevel spurring in the thoracic spine is seen. Mild height loss at T8 vertebra is redemonstrated. IMPRESSION: New significant bilateral pulmonary embolism with CT suggestion of RV strain. Critical results communicated to ordering emergency care physician via telephone at time of dictation .
[2019-04-25 09:01] VITALS: RESP 18
[2019-04-25] MEDS ORDERED: oxyCODONE-APAP 5-325MG 1 EACH TAB PO STA (09:05)
[2019-04-25 09:14] LABS: VBG PH 7.42 (7.31-7.41)
[2019-04-25 10:18] VITALS: BP 102/70; PULSE 120
== END 2019-04-25 10:02 | disposition short-term general hospital (02) ==
LOC: EC 05:59
DX: I26.99 Other pulmonary embolism without acute cor pulmonale (principal); E87.3 Alkalosis; R00.0 Tachycardia, unspecified; R79.89 Other specified abnormal findings of blood chemistry; R01.1 Cardiac murmur, unspecified; E78.5 Hyperlipidemia, unspecified; I10 Essential (primary) hypertension; E03.9 Hypothyroidism, unspecified; Z91.040 Latex allergy status; Z79.890 Hormone replacement therapy; Z79.899 Other long term (current) drug therapy; Z85.42 Personal history of malignant neoplasm of other parts of uterus; Z92.3 Personal history of irradiation; Z90.710 Acquired absence of both cervix and uterus; Z82.49 Family history of ischemic heart disease and other diseases of the circulatory system
CPT/HCPCS: 99291; 96365; 96376; 36415; 93005; 85379; 83880; 80053; 82803; 83605; 83735; 84484; 85025; 85610; 85730; 71046; 71275; J1644 ×2; Q9967

== ENCOUNTER 2019-09-08 17:55 | Inpatient (IN) | payer OTHER ==
[2019-09-08] MEDS ORDERED: SODIUM CHLORIDE 0.9% 500 ML 500 ML IV STA (18:25)
--- NOTE | 2019-09-08 18:34 | ED ---
General Adult HPI - General Chief complaint: Weakness Stated complaint: weakness, cancer pt Time Seen by Provider: 09/08/19 18:19 Source: patient, family, RN notes reviewed, old records reviewed Mode of arrival: wheelchair Limitations: physical limitation - History of Present Illness Initial comments: 58-year-old female patient past history significant for recurrent ovarian cancer, acting external beam radiation presents ED chief complaint of generalized weakness. Patient reports that for the last week she has had worsening generalized weakness. Does not have a desire to eat or drink. Reports that is what is causing her difficulty walking, activities of daily life. Patient denies any pain at this time. Denies any chest pain shortness breath abdominal pain nausea vomiting diarrhea. Patient does report that she does have a dry cough. Denies any other complaints at this time. Patient is anticoagulated on eliquis for prior pulmonary embolism. Systemic: Pt denies fatigue, fever/chills, rash. Pt denies night sweats, weight loss. Neuro: Pt denies headache, visual disturbances, syncope or pre-syncope. HEENT: Pt denies ocular discharge or irritation, otalgia, rhinorrhea, pharyngitis or notable lymphadenopathy. Cardiopulmonary: Pt denies chest pain, SOB, heart palpitations, dyspnea on exertion. Abdominal/GI: Pt denies abdominal pain, n/v/d. : Pt denies dysuria, burning w/ urination, frequency/urgency. Denies new onset urinary or bowel incontinence. MSK: Pt denies myalgia, loss of strength or function in extremities. Neuro: Pt denies new onset weakness, paresthesias. - Related Data Home Medications Medication Instructions Recorded Confirmed Apixaban [Eliquis] 5 mg PO BID 09/08/19 09/08/19 Gabapentin [Neurontin] 100 mg PO Q8H 09/08/19 09/08/19 Mirtazapine 7.5 mg PO HS 09/08/19 09/08/19 Morphine Sulfate ER [Ms Contin] 30 mg PO Q8H 09/08/19 09/08/19 Prochlorperazine [Compazine] 10 mg PO Q8H 09/08/19 09/08/19 Sennosides-Docusate Sodium 2 tab PO HS 09/08/19 09/08/19 [Senokot-S] oxyCODONE HCL/ACETAMINOPHEN 1 tab PO Q4HR 09/08/19 09/08/19 [Percocet 7.5-325 mg] Allergies Allergy/AdvReac Type Severity Reaction Status Date / Time latex Allergy Rash/Hives Verified 09/08/19 18:56 Review of Systems ROS Statement: Those systems with pertinent positive or pertinent negative responses have been documented in the HPI. ROS Other: All systems not noted in ROS Statement are negative. Past Medical History Past Medical History: Cancer, Diabetes Mellitus, Hyperlipidemia, Hypertension, Thyroid Disorder Additional Past Medical History / Comment(s): 2012 Uterine cancer with hysterectomy and radiation, NIDDM-loss, neuropathy bilateral feet, hypothyroid, back cancer rad m-f History of Any Multi-Drug Resistant Organisms: None Reported Past Surgical History: Section, Hysterectomy, Orthopedic Surgery Additional Past Surgical History / Comment(s): x 2, L foot bone spur Past Anesthesia/Blood Transfusion Reactions: Motion Sickness, Postoperative Nausea & Vomiting (PONV) Past Psychological History: No Psychological Hx Reported Smoking Status: Never smoker Past Alcohol Use History: None Reported Past Drug Use History: None Reported - Past Family History Father Family Medical History: Myocardial Infarction (MN) Additional Family Medical History / Comment(s): Father had a MN at the age of 85 yrs. Mother Family Medical History: Osteoarthritis (OA), Skin Disorder, Thyroid Disorder Additional Family Medical History / Comment(s): Psoriasis. General Exam - General Exam Comments Initial Comments: Constitutional: NAD, AOX3, Pt has pleasant affect. HEENT: NC/AT, trachea midline, neck supple, no lymphadenopathy. Posterior pharynx non erythematous, without exudates. External ears appear normal, without discharge. Mucous membranes moist. Eyes PERRLA, EOM intact. There is no scleral icterus. No pallor noted. Cardiopulmonary: RRR, no murmurs, rubs or gallops, no JVD noted. Lungs CTAB in anterior and posterior encarnacion. No peripheral edema. Abdominal exam: Abdomen soft and non-distended. Abdomen non-tender to palpation in all 4 quadrants. Bowel sounds active in LLQ. No hepatosplenomegaly. No ecchymosis Neuro: CN II-XII grossly intact. No nuchal rigidity. No raccon eyes, no roach sign, no hemotympanum. No cervical spinal tenderness. MSK: No posterior calf tenderness bilaterally, homans sign negative bilaterally. Posterior tibialis and radial pulse +2 bilaterally. Sensation intact in upper and lower extremities. Full active ROM in upper and lower extremities, 5/5 stregnth. Limitations: physical limitation Course Vital Signs 09/08/19 09/08/19 09/08/19 18:00 20:11 22:00 Temperature 97.4 F L Pulse Rate 72 110 H 98 Respiratory 18 18 18 Rate Blood Pressure 98/60 97/67 100/70 O2 Sat by Pulse 94 L 96 100 Oximetry Medical Decision Making - Medical Decision Making 58-year-old female patient past history significant for recurrent ovarian cancer, acting external beam radiation presents ED chief complaint of generalized weakness. Patient reports that for the last week she has had w orsening generalized weakness. Does not have a desire to eat or drink. Reports that is what is causing her difficulty walking, activities of daily life. Patient denies any pain at this time. Denies any chest pain shortness breath abdominal pain nausea vomiting diarrhea. Patient does report that she does have a dry cough. Denies any other complaints at this time. Patient is anticoagulated on eliquis for prior pulmonary embolism. Patient will signs stable, afebrile. Physical exam did not splayed acute pathology. Laboratory investigations revealed mild neutropenia 2.6. Currently states the normal limits. CMP revealed mildly elevated reddening, lactic acidosis. Patient was bolused 2 L in ED. Lactic acidosis decreased at 5.5 3.4. UA negative. Chest x-ray negative. She'll be admitted for lactacidosis, generalized weakness. Case discussed with Dr. Toth. - Lab Data Result diagrams: 09/08/19 19:04 09/08/19 19:04 Lab Results 09/08/19 09/08/19 09/08/19 Range/Units 19:04 19:04 19:04 WBC 2.6 L (3.8-10.6) k/uL RBC 3.84 (3.80-5.40) m/uL Hgb 11.8 (11.4-16.0) gm/dL Hct 37.4 (34.0-46.0) % MCV 97.5 (80.0-100.0) fL MCH 30.9 (25.0-35.0) pg MCHC 31.7 (31.0-37.0) g/dL RDW 16.6 H (11.5-15.5) % Plt Count 218 (150-450) k/uL Neutrophils % (Manual) 69 % Band Neutrophils % 8 % Lymphocytes % (Manual) 15 % Monocytes % (Manual) 8 % Neutrophils # (Manual) 2.00 (1.3-7.7) k/uL Lymphocytes # (Manual) 0.39 L (1.0-4.8) k/uL Monocytes # (Manual) 0.21 (0-1.0) k/uL Nucleated RBCs 0 (0-0) /100 WBC Manual Slide Review Performed Hypochromasia Slight Anisocytosis Slight Macrocytosis Slight PT (9.0-12.0) sec INR (<1.2) APTT (22.0-30.0) sec Sodium 140 (137-145) mmol/L Potassium 3.9 (3.5-5.1) mmol/L Chloride 108 H (98-107) mmol/L Carbon Dioxide 19 L (22-30) mmol/L Anion Gap 13 mmol/L BUN 27 H (7-17) mg/dL Creatinine 1.13 H (0.52-1.04) mg/dL Est GFR (CKD-EPI)AfAm 61 (>60 ml/min/1.73 sqM) Est GFR (CKD-EPI)NonAf 53 (>60 ml/min/1.73 sqM) Glucose 209 H (74-99) mg/dL Lactic Ac Sepsis Rflx Plasma Lactic Acid Tung 5.5 H* (0.7-2.0) mmol/L Calcium 10.4 H (8.4-10.2) mg/dL Total Bilirubin 0.6 (0.2-1.3) mg/dL AST 31 (14-36) U/L ALT 12 (9-52) U/L Alkaline Phosphatase 264 H (38-126) U/L Troponin I (0.000-0.034) ng/mL Total Protein 7.1 (6.3-8.2) g/dL Albumin 3.1 L (3.5-5.0) g/dL Urine Color Urine Appearance (Clear) Urine pH (5.0-8.0) Ur Specific [place] (1.001-1.035) Urine Protein (Negative) Urine Glucose (UA) (Negative) Urine Ketones (Negative) Urine Blood (Negative) Urine Nitrite (Negative) Urine Bilirubin (Negative) Urine Urobilinogen (<2.0) mg/dL Ur Leukocyte Esterase (Negative) Urine RBC (0-5) /hpf Urine WBC (0-5) /hpf Amorphous Sediment (None) /hpf Hyaline Casts (0-2) /lpf Urine Mucus (None) /hpf 09/08/19 09/08/19 09/08/19 Range/Units 19:04 19:04 19:31 WBC (3.8-10.6) k/uL RBC (3.80-5.40) m/uL Hgb (11.4-16.0) gm/dL Hct (34.0-46.0) % MCV (80.0-100.0) fL MCH (25.0-35.0) pg MCHC (31.0-37.0) g/dL RDW (11.5-15.5) % Plt Count (150-450) k/uL Neutrophils % (Manual) % Band Neutrophils % % Lymphocytes % (Manual) % Monocytes % (Manual) % Neutrophils # (Manual) (1.3-7.7) k/uL Lymphocytes # (Manual) (1.0-4.8) k/uL Monocytes # (Manual) (0-1.0) k/uL Nucleated RBCs (0-0) /100 WBC Manual Slide Review Hypochromasia Anisocytosis Macrocytosis PT 11.3 (9.0-12.0) sec INR 1.1 (<1.2) APTT 29.6 (22.0-30.0) sec Sodium (137-145) mmol/L Potassium (3.5-5.1) mmol/L Chloride (98-107) mmol/L Carbon Dioxide (22-30) mmol/L Anion Gap mmol/L BUN (7-17) mg/dL Creatinine (0.52-1.04) mg/dL Est GFR (CKD-EPI)AfAm (>60 ml/min/1.73 sqM) Est GFR (CKD-EPI)NonAf (>60 ml/min/1.73 sqM) Glucose (74-99) mg/dL Lactic Ac Sepsis Rflx Y Plasma Lactic Acid Tung (0.7-2.0) mmol/L Calcium (8.4-10.2) mg/dL Total Bilirubin (0.2-1.3) mg/dL AST (14-36) U/L ALT (9-52) U/L Alkaline Phosphatase (38-126) U/L Troponin I <0.012 (0.000-0.034) ng/mL Total Protein (6.3-8.2) g/dL Albumin (3.5-5.0) g/dL Urine Color Urine Appearance (Clear) Urine pH (5.0-8.0) Ur Specific [place] (1.001-1.035) Urine Protein (Negative) Urine Glucose (UA) (Negative) Urine Ketones (Negative) Urine Blood (Negative) Urine Nitrite (Negative) Urine Bilirubin (Negative) Urine Urobilinogen (<2.0) mg/dL Ur Leukocyte Esterase (Negative) Urine RBC (0-5) /hpf Urine WBC (0-5) /hpf Amorphous Sediment (None) /hpf Hyaline Casts (0-2) /lpf Urine Mucus (None) /hpf 09/08/19 09/08/19 Range/Units 21:55 23:13 WBC (3.8-10.6) k/uL RBC (3.80-5.40) m/uL Hgb (11.4-16.0) gm/dL Hct (34.0-46.0) % MCV (80.0-100.0) fL MCH (25.0-35.0) pg MCHC (31.0-37.0) g/dL RDW (11.5-15.5) % Plt Count (150-450) k/uL Neutrophils % (Manual) % Band Neutrophils % % Lymphocytes % (Manual) % Monocytes % (Manual) % Neutrophils # (Manual) (1.3-7.7) k/uL Lymphocytes # (Manual) (1.0-4.8) k/uL Monocytes # (Manual) (0-1.0) k/uL Nucleated RBCs (0-0) /100 WBC Manual Slide Review Hypochromasia Anisocytosis Macrocytosis PT (9.0-12.0) sec INR (<1.2) APTT (22.0-30.0) sec Sodium (137-145) mmol/L Potassium (3.5-5.1) mmol/L Chloride (98-107) mmol/L Carbon Dioxide (22-30) mmol/L Anion Gap mmol/L BUN (7-17) mg/dL Creatinine (0.52-1.04) mg/dL Est GFR (CKD-EPI)AfAm (>60 ml/min/1.73 sqM) Est GFR (CKD-EPI)NonAf (>60 ml/min/1.73 sqM) Glucose (74-99) mg/dL Lactic Ac Sepsis Rflx Plasma Lactic Acid Tung 3.4 H* (0.7-2.0) mmol/L Calcium (8.4-10.2) mg/dL Total Bilirubin (0.2-1.3) mg/dL AST (14-36) U/L ALT (9-52) U/L Alkaline Phosphatase (38-126) U/L Troponin I (0.000-0.034) ng/mL Total Protein (6.3-8.2) g/dL Albumin (3.5-5.0) g/dL Urine Color Yellow Urine Appearance Cloudy H (Clear) Urine pH 6.5 (5.0-8.0) Ur Specific [place] 1.017 (1.001-1.035) Urine Protein 1+ H (Negative) Urine Glucose (UA) Negative (Negative) Urine Ketones Negative (Negative) Urine Blood Negative (Negative) Urine Nitrite Negative (Negative) Urine Bilirubin Negative (Negative) Urine Urobilinogen 3.0 (<2.0) mg/dL Ur Leukocyte Esterase Trace H (Negative) Urine RBC 1 (0-5) /hpf Urine WBC 5 (0-5) /hpf Amorphous Sediment Rare H (None) /hpf Hyaline Casts 3 H (0-2) /lpf Urine Mucus Rare H (None) /hpf - EKG Data -: EKG Interpreted by Me (and Dr. Toth) EKG Comments: Atrovent rate 109,. Vital 1:30, QRS 86, QT/QTC 368/495. Sinus tachycardia, cannot rule out an. Infected and tone. No concern for acute ischemia. Disposition Clinical Impression: Weakness, Lactic acidosis Disposition: ADMITTED IP TO THIS HOSP Condition: Fair Is patient prescribed a controlled substance at d/c from ED?: No Referrals: Teodoro Rod DO [Primary Care Provider] - 1-2 days
[2019-09-08 19:20] LABS: Anisocytosis Slight; HCT 37.4 % (34.0-46.0); HGB 11.8 gm/dL (11.4-16.0); Hypochromasia Slight; MCH 30.9 pg (25.0-35.0); MCHC 31.7 g/dL (31.0-37.0); MCV 97.5 fL (80.0-100.0); Macrocytosis Slight; Mean Platelet Volume 7.3; Platelet Count 218 k/uL (150-450); RBC 3.84 m/uL (3.80-5.40); RDW 16.6 % (11.5-15.5); WBC 2.6 k/uL (3.8-10.6)
[2019-09-08 19:31] LABS: INR 1.1 (<1.2); Partial Thromboplastin Time 29.6 sec (22.0-30.0); Prothrombin Time 11.3 sec (9.0-12.0)
[2019-09-08 19:34] LABS: Band Neutrophils % 8 %; Lymphocytes # (M) 0.39 k/uL (1.0-4.8); Monocytes # (M) 0.21 k/uL (0-1.0); Neutrophils % (M) 69 %; Nucleated Red Blood Cells 0 /100 WBC (0-0); Total Cells Counted 100
[2019-09-08] MEDS ORDERED: SODIUM CHLORIDE 0.9% 1,000 ML IV ONE (19:35)
[2019-09-08] MEDS ORDERED: SODIUM CHLORIDE 0.9% 500 ML 500 ML IV ONE (19:35)
--- NOTE | 2019-09-08 19:36 | XR ---
EXAMINATION TYPE: XR chest 2V DATE OF EXAM: 09/08/2019 COMPARISON: 04/25/2019 HISTORY: Weakness TECHNIQUE: Frontal and lateral views of the chest are obtained. FINDINGS: Heart and mediastinum are normal. Lungs are clear of infiltrate. There is a right central venous catheter with tip in the superior vena cava. Bony thorax is intact. There is osteopenia. IMPRESSION: No active cardiopulmonary disease. No change.
[2019-09-08 20:02] LABS: Albumin 3.1 g/dL (3.5-5.0); Calcium 10.4 mg/dL (8.4-10.2); Potassium 3.9 mmol/L (3.5-5.1); Total Bilirubin 0.6 mg/dL (0.2-1.3); Total Protein 7.1 g/dL (6.3-8.2)
[2019-09-08 23:23] LABS: Amorphous Sediment,Urine Rare /hpf; Appearance,Urine Cloudy (Clear); Bilirubin,Urine Negative (Negative); Blood,Urine Negative (Negative); Color,Urine Yellow; Glucose,Urine (UA) Negative (Negative); Hyaline Casts,Urine 3 /lpf (0-2); Ketones,Urine Negative (Negative); Leukocyte Esterase,Urine Trace (Negative); Mucus,Urine Rare /hpf; Nitrite,Urine Negative (Negative); PH, Urine 6.5 (5.0-8.0); Protein,Urine 1+ (Negative); RBC,Urine 1 /hpf (0-5); Specific Gravity,Urine 1.017 (1.001-1.035)
[2019-09-08] MEDS ORDERED: NALOXONE 0.4 MG/ML 1 ML VIAL IV PRN (23:30)
[2019-09-09] MEDS: SODIUM CHLORIDE 0.9% 1,000 ML IV SCH ×3 (00:37→19:15)
[2019-09-09 01:11] LABS: Glucose,Whole Blood 105 mg/dL (75-99)
[2019-09-09] MEDS ORDERED: PROCHLORPERAZINE 10 MG TAB PO SCH (10:15)
[2019-09-09] MEDS ORDERED: PANTOPRAZOLE 40 MG/10 ML VIAL IVP SCH (10:15)
[2019-09-09] MEDS: GABAPENTIN 100 MG CAP PO SCH ×3 (10:25→23:48)
[2019-09-09] MEDS: MORPHINE SULFATE ER 30 MG TABLET PO SCH ×3 (10:25→23:48)
[2019-09-09] MEDS: oxyCODONE-APAP 7.5-325MG 1 EACH TAB PO PRN (10:37)
[2019-09-09 10:41] VITALS: BMI 16.5
--- NOTE | 2019-09-09 11:00 | P.HPIM ---
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 Valdez for radiation oncology. Currently finishing up second week of 7 chemotherapy, 5 days a week, reports post radiation. Presented to the ER with worsening generalized weakness. Reports "not eating right" for greater than a week. Denies nausea or vomiting. Denies diarrhea. Denies abdominal pain. Reports difficulty performing ADLs including walking, complains of intermittent pain in bilateral thighs-anterior. Anticoagulated on Eliquis for PE. Denies chest pain, palpitations or shortness of breath. EKG reports sinus tachycardia, possible age undetermined inferior infarct. Troponin less than 0.012. Occasional dry nonproductive cough. chest x-ray nonacute.Denies currently any pain at this time. Afebrile, WBC 2.6. Neutrophils 69. Hemoglobin 11.8. Lactic acid on admission 5.5, received 2 L of fluid boluses currently down to 1.4. 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 UA negative, alk phos 264. BUN 27 creatinine 1.13. Calcium 10.4. Review of Systems ROS Statement: Those systems with pertinent positive or pertinent negative responses have been documented in the HPI. ROS Other: All systems not noted in ROS Statement are negative. GENERAL: Patient denies fever. Denies chills. EYES: Denies blurred vision. Denies vision changes. Denies eye pain. EARS, NOSE, MOUTH, & THROAT: Denies headache. Denies sore throat. Denies ear pain. Hard of hearing secondary to radiation RESPIRATORY: Occasional dry cough. Denies shortness of breath. Denies sputum production. Denies hemoptysis. CARDIOVASCULAR: Denies chest pain or pressure. Denies palpitations. Denies arrhythmias. GASTROINTESTINAL: Denies abdominal pain. Denies diarrhea. Denies constipation. Denies nausea. Denies vomiting. Denies heartburn. Denies blood in the stool. GENITOURINARY: Denies urinary frequency. Denies burning. Denies dysuria. Denies cloudy urine. Denies blood in the urine. MUSCULOSKELETAL: Admits myalgias. Admits to pain in the lumbar spine with decreased range of motion. INTEGUMENTARY: Denies pruitis. Denies rash. PSYCHIATRIC: Denies suicidal or homicial ideations. ENDOCRINE: Reports weight loss. Denies polydipsia. Denies polyuria. HEMATOLOGIC: Denies bleeding disorders. 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 She uses a walker at home. Patient has glucometer. Smoking Status: Never smoker Past Alcohol Use History: None Reported Past Drug Use History: None Reported - Past Family History Father Family Medical History: Myocardial Infarction (MD) Additional Family Medical History / Comment(s): Father had a MD at the age of 85 yrs. Mother Family Medical History: Osteoarthritis (OA), Skin Disorder, Thyroid Disorder Additional Family Medical History / Comment(s): Psoriasis. Medications and Allergies Home Medications Medication Instructions Recorded Confirmed Type Apixaban [Eliquis] 5 mg PO BID 09/08/19 09/08/19 History Gabapentin [Neurontin] 100 mg PO Q8H 09/08/19 09/08/19 History Mirtazapine 7.5 mg PO HS 09/08/19 09/08/19 History Morphine Sulfate ER [Ms Contin] 30 mg PO Q8H 09/08/19 09/08/19 History Prochlorperazine [Compazine] 10 mg PO Q8H 09/08/19 09/08/19 History Sennosides-Docusate Sodium 2 tab PO HS 09/08/19 09/08/19 History [Senokot-S] oxyCODONE HCL/ACETAMINOPHEN 1 tab PO Q4HR 09/08/19 09/08/19 History [Percocet 7.5-325 mg] Ondansetron [Zofran] 8 mg PO Q8HR PRN 09/09/19 09/09/19 History Allergies Allergy/AdvReac Type Severity Reaction Status Date / Time latex Allergy Rash/Hives Verified 09/08/19 18:56 Physical Exam Vitals: Vital Signs Temp Pulse Pulse Resp BP BP BP 09/09/19 04:43 104/65 106/58 09/09/19 04:36 97.9 F 105 H 16 79/51 78/50 09/09/19 00:41 97.6 F 102 H 16 92/58 09/09/19 00:00 98.0 F 97 18 94/63 09/08/19 23:45 93 18 86/55 09/08/19 22:00 98 18 100/70 09/08/19 20:11 110 H 18 97/67 09/08/19 18:00 97.4 F L 72 18 98/60 Pulse Ox 09/09/19 04:43 09/09/19 04:36 97 09/09/19 00:41 97 09/09/19 00:00 95 09/08/19 23:45 96 09/08/19 22:00 100 09/08/19 20:11 96 09/08/19 18:00 94 L Intake and Output 09/08/19 09/09/19 09/09/19 22:59 06:59 14:59 Intake Total 1040 Balance 1040 Intake: Intake, IV Titration 800 Amount Sodium Chloride 0.9% 1, 800 000 ml @ 100 mls/hr IV . Q10H [facility] Rx#:[id number] Oral 240 Other: Voiding Method Bedpan # Voids 1 # Bowel Movements 1 Weight 44.906 kg GENERAL: This is a -58 year-old female in apparent distress at the time of examination. Pleasant and cooperative. HEENT: Head is atraumatic, normocephalic. Pupils are equal, round, and reactive to light. Sclerae anicteric. Conjunctivae are clear. Mucus membranes of the mouth are dry. Neck is supple. Right chest port accessed. RESPIRATORY: Clear to auscultation. No wheezes, rales, or rhonchi. No use of accessory muscles. Patient maintaining oxygen saturation greater than 95%. No chest wall tenderness is noted on palpation or with deep breathing. CARDIOVASCULAR: Regular rate and rhythm. S1 and S2 noted. No systolic or diastolic murmur auscultated. No JVD noted. No S3 or S4 noted. GASTROINTESTINAL: No distention noted. Abdomen soft and round. Normal active bowel sounds auscultated x 4 quadrants. No pain or tenderness noted upon palpation. INTEGUMENTARY: No cyanosis. No jaundice. No rashes noted. No cellulitis noted. EXTREMITIES: 2+ peripheral pulses. No evidence of peripheral edema. No calf tenderness noted. NEUROLOGIC: Cranial nerves II-XII grossly intact. PSYCHIATRIC: Awake, alert, and oriented X 3. Appropriate affect. Intact judgement and insight. Results CBC & Chem 7: 09/08/19 19:04 09/08/19 19:04 Labs: Abnormal Lab Results - Last 24 Hours (Table) 09/08/19 09/08/19 09/08/19 Range/Units 19:04 19:04 19:04 WBC 2.6 L (3.8-10.6) k/uL RDW 16.6 H (11.5-15.5) % Lymphocytes # (Manual) 0.39 L (1.0-4.8) k/uL Chloride 108 H (98-107) mmol/L Carbon Dioxide 19 L (22-30) mmol/L BUN 27 H (7-17) mg/dL Creatinine 1.13 H (0.52-1.04) mg/dL Glucose 209 H (74-99) mg/dL POC Glucose (mg/dL) (75-99) mg/dL Plasma Lactic Acid Tung 5.5 H* (0.7-2.0) mmol/L Calcium 10.4 H (8.4-10.2) mg/dL Alkaline Phosphatase 264 H (38-126) U/L Albumin 3.1 L (3.5-5.0) g/dL Urine Appearance (Clear) Urine Protein (Negative) Ur Leukocyte Esterase (Negative) Amorphous Sediment (None) /hpf Hyaline Casts (0-2) /lpf Urine Mucus (None) /hpf 09/08/19 09/08/19 09/09/19 Range/Units 21:55 23:13 01:09 WBC (3.8-10.6) k/uL RDW (11.5-15.5) % Lymphocytes # (Manual) (1.0-4.8) k/uL Chloride (98-107) mmol/L Carbon Dioxide (22-30) mmol/L BUN (7-17) mg/dL Creatinine (0.52-1.04) mg/dL Glucose (74-99) mg/dL POC Glucose (mg/dL) 105 H (75-99) mg/dL Plasma Lactic Acid Tung 3.4 H* (0.7-2.0) mmol/L Calcium (8.4-10.2) mg/dL Alkaline Phosphatase (38-126) U/L Albumin (3.5-5.0) g/dL Urine Appearance Cloudy H (Clear) Urine Protein 1+ H (Negative) Ur Leukocyte Esterase Trace H (Negative) Amorphous Sediment Rare H (None) /hpf Hyaline Casts 3 H (0-2) /lpf Urine Mucus Rare H (None) /hpf 09/09/19 09/09/19 Range/Units 01:20 05:24 WBC (3.8-10.6) k/uL RDW (11.5-15.5) % Lymphocytes # (Manual) (1.0-4.8) k/uL Chloride (98-107) mmol/L Carbon Dioxide (22-30) mmol/L BUN (7-17) mg/dL Creatinine (0.52-1.04) mg/dL Glucose (74-99) mg/dL POC Glucose (mg/dL) (75-99) mg/dL Plasma Lactic Acid Tung 3.0 H* 2.5 H* (0.7-2.0) mmol/L Calcium (8.4-10.2) mg/dL Alkaline Phosphatase (38-126) U/L Albumin (3.5-5.0) g/dL Urine Appearance (Clear) Urine Protein (Negative) Ur Leukocyte Esterase (Negative) Amorphous Sediment (None) /hpf Hyaline Casts (0-2) /lpf Urine Mucus (None) /hpf Thrombosis Risk Factor Assmnt - Choose All That Apply Each Factor Represents 1 point: Age 41-60 years Other Risk Factors: No Other congenital or acquired thrombophilia - If yes, enter type in comment: No Thrombosis Risk Factor Assessment Total Risk Factor Score: 1 Thrombosis Risk Factor Assessment Level: Low Risk Assessment and Plan Assessment: (1) Dehydration, secondary to decreased oral intake from chemotherapy and radiation (2) acute renal failure from the above (3) hypotension secondary to volume depletion,#1 (4) lactic acidosis (5) leukopenia (6) hypothyroidism (7) history of uterine cancer with metastasis, currently receiving chemotherapy, radiation outpatient (8) L3 pathological compression fracture, history of. (9) moderate protein calorie malnutrition, BMI 16.5, albumin 3.1, secondary to weight loss from decreased oral intake (10) generalized weakness, multifactorial, secondary to all the above (11) history of left hydroureter (12) history of retroperitoneal lymphadenopathy (13) diabetes mellitus (14) history of hypertension (15) hyperlipidemia (16) osteopenia Plan: Continue on current medication regime ,monitoring and symptomatic treatment. IV fluid hydration. Oncology consult initiated. PT/OT. GI and DVT prophylaxis in place. Home meds have been reviewed and resumed accordingly. Prognosis guarded given multiple complex medical problems. The impression and plan of care has been dictated as directed. : I performed a history and examination of this patient, discussed the same with the dictator. I agree with the dictator's note ,documented as a scribe. Any additional findings or plans will be noted.
[2019-09-09] MEDS ORDERED: oxyCODONE-APAP 7.5-325MG 1 EACH TAB PO SCH (12:00)
[2019-09-09] MEDS: SENNOSIDES-DOCUSATE SODIUM 1 EACH TAB PO SCH (19:15)
[2019-09-09] MEDS: APIXABAN 5 MG TAB PO SCH (20:43)
[2019-09-09] MEDS: MIRTAZAPINE 15 MG TAB PO SCH (20:43)
[2019-09-09] MEDS: PROCHLORPERAZINE 10 MG TAB PO PRN (20:44)
[2019-09-10] MEDS: oxyCODONE-APAP 7.5-325MG 1 EACH TAB PO PRN (05:00)
[2019-09-10] MEDS: SODIUM CHLORIDE 0.9% 1,000 ML IV SCH ×2 (05:51→16:53)
[2019-09-10 08:46] LABS: African American GFR (CKD) >90 (>60 ml/min/1.73 sqM); Anion Gap 5 mmol/L; Blood Urea Nitrogen 19 mg/dL (7-17); Calcium 7.7 mg/dL (8.4-10.2); Carbon Dioxide 20 mmol/L (22-30); Chloride 119 mmol/L (98-107); Glucose 149 mg/dL (74-99); Sodium 144 mmol/L (137-145)
[2019-09-10] MEDS: MORPHINE SULFATE ER 30 MG TABLET PO SCH ×3 (09:56→23:45)
[2019-09-10] MEDS: GABAPENTIN 100 MG CAP PO SCH ×3 (09:56→23:45)
[2019-09-10] MEDS: PANTOPRAZOLE 40 MG TABLET PO SCH (10:03)
[2019-09-10] MEDS: APIXABAN 5 MG TAB PO SCH ×2 (10:18→20:49)
[2019-09-10 11:00] LABS: Anisocytosis Slight; Basophils % (A) 0 %; Eosinophils # (A) 0.1 k/uL (0-0.7); Eosinophils % (A) 5 %; HCT 26.4 % (34.0-46.0); Hypochromasia Moderate; Lymphocytes # (A) 0.2 k/uL (1.0-4.8); Lymphocytes % (A) 9 %; MCH 31.3 pg (25.0-35.0); MCHC 31.3 g/dL (31.0-37.0); MCV 99.9 fL (80.0-100.0); Macrocytosis Slight; Mean Platelet Volume 7.6; Monocytes # (A) 0.2 k/uL (0-1.0); Monocytes % (A) 6 %; Neutrophils # (A) 1.9 k/uL (1.3-7.7); Neutrophils % (A) 78 %; Platelet Count 221 k/uL (150-450); RBC 2.64 m/uL (3.80-5.40); RDW 16.6 % (11.5-15.5); WBC 2.5 k/uL (3.8-10.6)
[2019-09-10 11:02] LABS: HGB 8.3 gm/dL (11.4-16.0)
[2019-09-10] MEDS ORDERED: Potassium Replacement Protocol 1 EACH MISC MISCELLANE PRN (12:23)
--- NOTE | 2019-09-10 13:26 | P.CONS ---
History of Present Illness - Reason for Consult Consult date: 09/10/19 Metastatic sarcoma, weakness, dehydration - History of Present Illness Mrs. Brooks is a 58-year-old female patient, First seen in consult in 03/01, who has a history of uterine cancer, treated with Dr. Bateman at [facility] in [place] 6 years ago. She was treated with surgery and radiation only. Since that time she has been on follow-up till her admission in 03/01, for progressive back pain, weakness and difficulty walking. Imaging at that time showed evidence of bone metastasis including what appeared to be a pathologic fracture at L3, as well as retroperitoneal adenopathy. She had a biopsy of the retroperitoneal mass, confirming high-grade sarcoma. (Original histology of her uterine cancer, whether carcinoma or sarcoma was not available to us) The patient was stabilized and discharged. She resume follow-up with Dr. Bateman. Apparently she has been treated with chemotherapy and is currently now on radiation for her back. The patient came in the hospital as she had been progressively weaker over the past 2 weeks or so. Oral intake has been very poor. She has had some nausea but denied any overt vomiting or diarrhea. She also complained of weakness in her left lower extremity and progressive difficulty in walking. She was therefore admitted for further management. The patient's recall of her history was very poor at the time of my evaluation. Review of Systems Constitutional: Reports anorexia, Reports chronic pain, Reports fatigue, Reports poor appetite, Reports weakness, Reports weight loss Eyes: denies blurred vision, denies pain Ears: deny: decreased hearing, ear discharge, earache, tinnitus Ears, nose, mouth and throat: Denies headache, Denies sore throat Cardiovascular: Reports decreased exercise tolerance Respiratory: Denies cough Gastrointestinal: Reports constipation Genitourinary: Reports as per HPI Menstruation: Reports postmenopausal Musculoskeletal: Reports muscle weakness Musculoskeletal: left: hip pain, hip stiffness Integumentary: Denies pruritus, Denies rash Neurological: Reports memory loss, Reports weakness Psychiatric: Reports memory loss Endocrine: Reports fatigue, Reports weight change Hematologic/Lymphatic: Reports as per HPI Past Medical History Past Medical History: Cancer, Diabetes Mellitus, Hyperlipidemia, Hypertension, Thyroid Disorder Additional Past Medical History / Comment(s): 2012 Uterine cancer with hyste rectomy and radiation, NIDDM-loss, neuropathy bilateral feet, hypothyroid, 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 She uses a walker at home. Patient has gl ucometer. Smoking Status: Never smoker Past Alcohol Use History: None Reported Past Drug Use History: None Reported - Past Family History Father Family Medical History: Myocardial Infarction (VT) Additional Family Medical History / Comment(s): Father had a VT at the age of 85 yrs. Mother Family Medical History: Osteoarthritis (OA), Skin Disorder, Thyroid Disorder Additional Family Medical History / Comment(s): Psoriasis. Medications and Allergies Home Medications Medication Instructions Recorded Confirmed Type Apixaban [Eliquis] 5 mg PO BID 09/08/19 09/08/19 History Gabapentin [Neurontin] 100 mg PO Q8H 09/08/19 09/08/19 History Mirtazapine 7.5 mg PO HS 09/08/19 09/08/19 History Morphine Sulfate ER [Ms Contin] 30 mg PO Q8H 09/08/19 09/08/19 History Prochlorperazine [Compazine] 10 mg PO Q6H 09/08/19 09/09/19 History Sennosides-Docusate Sodium 2 tab PO HS 09/08/19 09/08/19 History [Senokot-S] oxyCODONE HCL/ACETAMINOPHEN 1 tab PO Q4HR PRN 09/08/19 09/08/19 History [Percocet 7.5-325 mg] Ondansetron [Zofran] 8 mg PO Q8HR PRN 09/09/19 09/09/19 History Allergies Allergy/AdvReac Type Severity Reaction Status Date / Time latex Allergy Rash/Hives Verified 09/08/19 18:56 Physical Exam Vitals: Vital Signs Temp Pulse Resp BP BP Pulse Ox 09/10/19 07:44 97.7 F 96 14 98/62 96 09/10/19 04:54 97.7 F 68 16 107/69 95 09/09/19 21:00 98.1 F 77 16 88/54 91 L Intake and Output 09/09/19 09/10/19 09/10/19 22:59 06:59 14:59 Intake Total 1110 1040 Balance 1110 1040 Intake: Intake, IV Titration 400 800 Amount Sodium Chloride 0.9% 1, 400 800 000 ml @ 100 mls/hr IV . Q10H [facility] Rx#:[id number] Oral 710 240 Other: Voiding Method Bedpan Bedpan Diaper Diaper Diaper Incontinent Incontinent # Voids 1 2 # Bowel Movements 1 2 - Constitutional General appearance: no acute distress - EENT Eyes: EOMI, PERRLA ENT: hearing grossly normal, normal oropharynx - Neck Neck: no lymphadenopathy Thyroid: bilateral: normal size - Respiratory Respiratory: bilateral: CTA - Cardiovascular Rhythm: regular Heart sounds: normal: S1, S2 - Gastrointestinal General gastrointestinal: normal bowel sounds, soft - Integumentary Integumentary: normal - Neurologic Neurologic: CNII-XII intact - Musculoskeletal Musculoskeletal: generalized weakness, left sided weakness (Left lower extremity strength 2+/5, significant foot drop) - Psychiatric Psychiatric: A&O x's 3, appropriate affect Results CBC & Chem 7: 09/10/19 10:25 09/10/19 08:15 Labs: Abnormal Lab Results - Last 24 Hours (Table) 09/10/19 09/10/19 Range/Units 08:15 10:25 WBC 2.5 L (3.8-10.6) k/uL RBC 2.64 L (3.80-5.40) m/uL Hgb 8.3 L D (11.4-16.0) gm/dL Hct 26.4 L (34.0-46.0) % RDW 16.6 H (11.5-15.5) % Lymphocytes # 0.2 L (1.0-4.8) k/uL Potassium 3.0 L (3.5-5.1) mmol/L Chloride 119 H (98-107) mmol/L Carbon Dioxide 20 L (22-30) mmol/L BUN 19 H (7-17) mg/dL Glucose 149 H (74-99) mg/dL Calcium 7.7 L (8.4-10.2) mg/dL Microbiology - Last 24 Hours (Table) 09/09/19 01:20 Blood Culture - Preliminary Blood No Growth after 24 hours Chest x-ray: report reviewed CT scan - chest: report reviewed Assessment and Plan (1) Hypovolemia Narrative/Plan: This appears to be due to very poor oral intake, that in turn is related to treatment effect and/or cancer progression. The patient feels somewhat better with IV hydration. Continue the same. We will intake does not improve with supportive treatment in the hospital, we will need to consider adding appetite stimulant. Current Visit: Yes Status: Acute Code(s): E86.1 - HYPOVOLEMIA SNOMED Code(s): 23422618 (2) Weakness Narrative/Plan: Likely multifactorial, due to treatment effect as well as dehydration. Continue supportive care Current Visit: Yes Status: Acute Code(s): R53.1 - WEAKNESS SNOMED Code(s): 09895448 (3) History of uterine cancer Narrative/Plan: Diagnostic and therapeutic circumstances as described. The patient was unable to provide me any accurate details of her treatment since she was seen here in consult in 03/01. She has been following with Dr. Bateman. We will try to obtain records. Given her difficulty with memory and concentration, MRI of the brain will be ordered to check for any metastasis. Current Visit: No Status: Acute Priority: High Code(s): Z85.42 - PERSONAL HISTORY OF MALIGNANT NEOPLASM OF OTH PRT UTERUS SNOMED Code(s): 029023994 (4) Acute low back pain Narrative/Plan: Currently controlled. The patient is seen palliative radiation though it is not known what level. Continue current pain regimen. She has no evidence of cord compression on exam. Current Visit: No Status: Acute Code(s): M54.5 - LOW BACK PAIN SNOMED Code(s): 566711950 Plan: Bicytopenia Likely due to treatment effect. Counts are currently in a safe range. Continue to monitor with supportive treatment as needed
[2019-09-10] MEDS: POTASSIUM CHLORIDE ER 20 MEQ TAB.ER PO SCH ×4 (15:43→22:22)
[2019-09-10 18:17] LABS: Anisocytosis Slight; HCT 28.5 % (34.0-46.0); Hypochromasia Moderate; MCH 31.3 pg (25.0-35.0); MCHC 31.6 g/dL (31.0-37.0); MCV 99.1 fL (80.0-100.0); Macrocytosis Slight; Mean Platelet Volume 7.4; Platelet Count 206 k/uL (150-450); RBC 2.87 m/uL (3.80-5.40); RDW 16.7 % (11.5-15.5); WBC 3.2 k/uL (3.8-10.6)
[2019-09-10] MEDS: SENNOSIDES-DOCUSATE SODIUM 1 EACH TAB PO SCH (20:44)
[2019-09-10] MEDS: MIRTAZAPINE 15 MG TAB PO SCH (20:50)
[2019-09-10] MEDS: ONDANSETRON 4 MG TAB PO PRN (20:52)
[2019-09-10] MEDS: POTASSIUM CHLORIDE 10 MEQ in WATER FOR INJECTION 1 100ML.BAG IVPB SCH (23:45)
[2019-09-11] MEDS: oxyCODONE-APAP 7.5-325MG 1 EACH TAB PO PRN (01:01)
[2019-09-11] MEDS: POTASSIUM CHLORIDE 10 MEQ in WATER FOR INJECTION 1 100ML.BAG IVPB SCH ×3 (01:03→03:18)
[2019-09-11] MEDS: SODIUM CHLORIDE 0.9% 1,000 ML IV SCH ×2 (03:19→15:58)
[2019-09-11 08:46] LABS: Anisocytosis Slight; Basophils % (A) 1 %; Eosinophils # (A) 0.1 k/uL (0-0.7); Eosinophils % (A) 4 %; HCT 29.2 % (34.0-46.0); Hypochromasia Slight; Lymphocytes # (A) 0.3 k/uL (1.0-4.8); Lymphocytes % (A) 10 %; MCH 30.6 pg (25.0-35.0); MCHC 30.9 g/dL (31.0-37.0); MCV 99.1 fL (80.0-100.0); Macrocytosis Slight; Mean Platelet Volume 8.3; Monocytes # (A) 0.1 k/uL (0-1.0); Monocytes % (A) 5 %; Neutrophils % (A) 78 %; Platelet Count 229 k/uL (150-450); RBC 2.94 m/uL (3.80-5.40); RDW 16.8 % (11.5-15.5); WBC 2.5 k/uL (3.8-10.6)
[2019-09-11 09:03] LABS: African American GFR (CKD) >90 (>60 ml/min/1.73 sqM); Anion Gap 8 mmol/L; Blood Urea Nitrogen 14 mg/dL (7-17); Calcium 8.5 mg/dL (8.4-10.2); Carbon Dioxide 17 mmol/L (22-30); Chloride 119 mmol/L (98-107); Glucose 151 mg/dL (74-99); Potassium 3.7 mmol/L (3.5-5.1); Sodium 144 mmol/L (137-145)
[2019-09-11] MEDS: MORPHINE SULFATE ER 30 MG TABLET PO SCH ×2 (09:04→15:58)
[2019-09-11] MEDS: PANTOPRAZOLE 40 MG TABLET PO SCH (09:04)
[2019-09-11] MEDS: GABAPENTIN 100 MG CAP PO SCH ×2 (09:05→15:58)
[2019-09-11] MEDS: APIXABAN 5 MG TAB PO SCH ×2 (09:05→22:14)
--- NOTE | 2019-09-11 14:32 | P.GSCN ---
History of Present Illness Consult date: 09/11/19 Reason for Consult: Decubitus ulcer History of present illness: This a 4-year-old female with history of uterine cancer. Patient has had limit ed mobility. She has developed acute was ulcer of the sacrum and spine. I been asked see her regarding possible debridement. Past Medical History Past Medical History: Cancer, Diabetes Mellitus, Hyperlipidemia, Hypertension, Thyroid Disorder Additional Past Medical History / Comment(s): 2012 Uterine cancer with hysterectomy and radiation, NIDDM-loss, neuropathy bilateral feet, hypothyroid, back cancer rad [facility] due to Radaiation History of Any Multi-Drug Resistant Organisms: None Reported Past Surgical History: Section, Hysterectomy, Orthopedic Surgery Additional Past Surgical History / Comment(s): x 2, L foot bone spur Past Anesthesia/Blood Transfusion Reactions: Motion Sickness, Postoperative Nausea & Vomiting (PONV) Past Psychological History: No Psychological Hx Reported Additional Psychological History / Comment(s): Pt resides with her spouse and family and friends assist her. She uses a walker at home. Patient has glucometer. Smoking Status: Never smoker Past Alcohol Use History: None Reported Past Drug Use History: None Reported - Past Family History Father Family Medical History: Myocardial Infarction (NM) Additional Family Medical History / Comment(s): Father had a NM at the age of 85 yrs. Mother Family Medical History: Osteoarthritis (OA), Skin Disorder, Thyroid Disorder Additional Family Medical History / Comment(s): Psoriasis. Medications and Allergies Home Medications Medication Instructions Recorded Confirmed Type Apixaban [Eliquis] 5 mg PO BID 09/08/19 09/08/19 History Gabapentin [Neurontin] 100 mg PO Q8H 09/08/19 09/08/19 History Mirtazapine 7.5 mg PO HS 09/08/19 09/08/19 History Morphine Sulfate ER [Ms Contin] 30 mg PO Q8H 09/08/19 09/08/19 History Prochlorperazine [Compazine] 10 mg PO Q6H 09/08/19 09/09/19 History Sennosides-Docusate Sodium 2 tab PO HS 09/08/19 09/08/19 History [Senokot-S] oxyCODONE HCL/ACETAMINOPHEN 1 tab PO Q4HR PRN 09/08/19 09/08/19 History [Percocet 7.5-325 mg] Ondansetron [Zofran] 8 mg PO Q8HR PRN 09/09/19 09/09/19 History Allergies Allergy/AdvReac Type Severity Reaction Status Date / Time latex Allergy Rash/Hives Verified 09/08/19 18:56 Surgical - Exam Vital Signs Temp Pulse Resp BP Pulse Ox 97.4 F L 72 18 98/60 94 L 09/08/19 18:00 09/08/19 18:00 09/08/19 18:00 09/08/19 18:00 09/08/19 18:00 - General well developed, well nourished, no distress - Eyes PERRL - ENT normal pinna - Neck no masses - Respiratory normal expansion - Cardiovascular Rhythm: regular - Abdomen Abdomen: soft, non tender - Musculoskeletal 10 cm decubitus sacral due to his ulcer. There is evidence of full-thickness dermal necrosis. There is also evidence of small superficial decubitus ulcer over lumbar spine. Results - Labs 09/11/19 08:11 09/11/19 08:11 Abnormal Lab Results - Last 24 Hours (Table) 09/10/19 09/10/19 09/11/19 Range/Units 18:05 18:05 08:11 WBC 3.2 L 2.5 L (3.8-10.6) k/uL RBC 2.87 L 2.94 L (3.80-5.40) m/uL Hgb 9.0 L 9.0 L (11.4-16.0) gm/dL Hct 28.5 L 29.2 L (34.0-46.0) % MCHC 30.9 L (31.0-37.0) g/dL RDW 16.7 H 16.8 H (11.5-15.5) % Lymphocytes # 0.3 L (1.0-4.8) k/uL Potassium 3.2 L (3.5-5.1) mmol/L Chloride (98-107) mmol/L Carbon Dioxide (22-30) mmol/L Glucose (74-99) mg/dL 09/11/19 Range/Units 08:11 WBC (3.8-10.6) k/uL RBC (3.80-5.40) m/uL Hgb (11.4-16.0) gm/dL Hct (34.0-46.0) % MCHC (31.0-37.0) g/dL RDW (11.5-15.5) % Lymphocytes # (1.0-4.8) k/uL Potassium (3.5-5.1) mmol/L Chloride 119 H (98-107) mmol/L Carbon Dioxide 17 L (22-30) mmol/L Glucose 151 H (74-99) mg/dL Microbiology - Last 24 Hours (Table) 09/09/19 01:20 Blood Culture - Preliminary Blood No Growth after 48 hours Diabetes panel 09/10/19 09/11/19 Range/Units 18:05 08:11 Sodium 144 (137-145) mmol/L Potassium 3.2 L 3.7 (3.5-5.1) mmol/L Chloride 119 H (98-107) mmol/L Carbon Dioxide 17 L (22-30) mmol/L BUN 14 (7-17) mg/dL Creatinine 0.76 (0.52-1.04) mg/dL Glucose 151 H (74-99) mg/dL Calcium 8.5 (8.4-10.2) mg/dL Calcium panel 09/11/19 Range/Units 08:11 Calcium 8.5 (8.4-10.2) mg/dL Pituitary panel 09/10/19 09/11/19 Range/Units 18:05 08:11 Sodium 144 (137-145) mmol/L Potassium 3.2 L 3.7 (3.5-5.1) mmol/L Chloride 119 H (98-107) mmol/L Carbon Dioxide 17 L (22-30) mmol/L BUN 14 (7-17) mg/dL Creatinine 0.76 (0.52-1.04) mg/dL Glucose 151 H (74-99) mg/dL Calcium 8.5 (8.4-10.2) mg/dL Adrenal panel 09/10/19 09/11/19 Range/Units 18:05 08:11 Sodium 144 (137-145) mmol/L Potassium 3.2 L 3.7 (3.5-5.1) mmol/L Chloride 119 H (98-107) mmol/L Carbon Dioxide 17 L (22-30) mmol/L BUN 14 (7-17) mg/dL Creatinine 0.76 (0.52-1.04) mg/dL Glucose 151 H (74-99) mg/dL Calcium 8.5 (8.4-10.2) mg/dL Assessment and Plan Assessment: Sacral due to his ulcer. Patient will undergo debridement in the a.m.
--- NOTE | 2019-09-11 16:59 | P.PN ---
Subjective Progress Note Date: 09/10/19 This is a 58-year-old female with history of uterine cancer with metastasis to bones, possibly kidneys and liver as per spouse, follows with Dr. Bateman [facility]/ONC at [facility] along with Dr. Valdez for radiation oncology. Currently finishing up second week of 7 chemotherapy, 5 days a week, reports post radiation. Presented to the ER with worsening generalized weakness. Reports "not eating right" for greater than a week. Denies nausea or vomiting. Denies diarrhea. Denies abdominal pain. Reports difficulty performing ADLs including walking, complains of intermittent pain in bilateral thighs-anterior. Anticoagulated on Eliquis for PE. Denies chest pain, palpitations or shortness of breath. EKG reports sinus tachycardia, possible age undetermined inferior infarct. Troponin less than 0.012. Occasional dry nonproductive cough. chest x-ray nonacute.Denies currently any pain at this time. Afebrile, WBC 2.6. Neutrophils 69. Hemoglobin 11.8. Lactic acid on admission 5.5, received 2 L of fluid boluses currently down to 1.4. Borderline hypotension on admission, followed by hypotension in the barometers calibrator hours in the high 70s, currently in the low 100s on IV fluid hydration. UA negative, alk phos 264. BUN 27 creatinine 1.13. Calcium 10.4. 09/10/2019 hemoglobin 8.3, WBC 2.5, platelets 221. No signs/symptoms of bleeding. Necrotic decubitus ulcers, present on admission-surgery consulted. Afebrile. Borderline hypotension. Maintained on IV fluid hydration. Denies pain. Denies chest pain, palpitations or shortness of breath. Potassium 3.2. Objective - Vital Signs Vital signs: Vital Signs Temp 97.7 F 09/10/19 07:44 Pulse 96 09/10/19 07:44 Resp 14 09/10/19 07:44 BP 98/62 09/10/19 07:44 Pulse Ox 96 09/10/19 07:44 Intake & Output 09/09/19 09/10/19 09/10/19 18:59 06:59 18:59 Intake Total 2150 Balance 2150 Weight 44.906 kg Intake: Intake, IV Titration 1200 Amount Sodium Chloride 0.9% 1, 1200 000 ml @ 100 mls/hr IV . Q10H [facility] Rx#:[id number] Oral 950 Other: Voiding Method Bedpan Bedpan Diaper Diaper Diaper Incontinent Incontinent # Voids 2 2 # Bowel Movements 1 2 - Exam GENERAL: This is a -58 year-old female in apparent distress at the t devon of examination. Pleasant and cooperative. HEENT: Head is atraumatic, normocephalic. Pupils are equal, round, and reactive to light. Sclerae anicteric. Conjunctivae are clear. Mucus membranes of the mouth are moist. Neck is supple. Right chest port accessed. RESPIRATORY: Clear to auscultation. No wheezes, rales, or rhonchi. No use of accessory muscles. Patient maintaining oxygen saturation greater than 95%. No chest wall tenderness is noted on palpation or with deep breathing. CARDIOVASCULAR: Regular rate and rhythm. S1 and S2 noted. No systolic or diastolic murmur auscultated. No JVD noted. No S3 or S4 noted. GASTROINTESTINAL: No distention noted. Abdomen soft and round. Normal active bowel sounds auscultated x 4 quadrants. No pain or tenderness noted upon palpation. INTEGUMENTARY: No cyanosis. No jaundice. No rashes noted. No cellulitis noted. Necrotic sacral decubitus 10 cm, small lumbar spine superficial decubitus ulcer, right small unstageable necrotic heel ulce-both present on admission. EXTREMITIES: 2+ peripheral pulses. No evidence of peripheral edema. No calf te nderness noted. NEUROLOGIC: Cranial nerves II-XII grossly intact. PSYCHIATRIC: Awake, alert, and oriented X 3. Appropriate affect. Intact judgement and insight. - Labs CBC & Chem 7: 09/11/19 08:11 09/11/19 08:11 Labs: Abnormal Lab Results - Last 24 Hours (Table) 09/10/19 09/10/19 Range/Units 08:15 10:25 WBC 2.5 L (3.8-10.6) k/uL RBC 2.64 L (3.80-5.40) m/uL Hgb 8.3 L D (11.4-16.0) gm/dL Hct 26.4 L (34.0-46.0) % RDW 16.6 H (11.5-15.5) % Lymphocytes # 0.2 L (1.0-4.8) k/uL Potassium 3.0 L (3.5-5.1) mmol/L Chloride 119 H (98-107) mmol/L Carbon Dioxide 20 L (22-30) mmol/L BUN 19 H (7-17) mg/dL Glucose 149 H (74-99) mg/dL Calcium 7.7 L (8.4-10.2) mg/dL Microbiology - Last 24 Hours (Table) 09/09/19 01:20 Blood Culture - Preliminary Blood No Growth after 24 hours Assessment and Plan Assessment: (1) Dehydration, secondary to decreased oral intake from chemotherapy and radiation (2) acute renal failure from the above (3) hypotension secondary to volume depletion,#1 (4) lactic acidosis (5) bicytopenia (6) hypothyroidism (7) history of uterine cancer with metastasis, currently receiving chemotherapy, radiation outpatient (8) L3 pathological compression fracture, history of. (9) moderate protein calorie malnutrition, BMI 16.5, albumin 3.1, secondary to weight loss from decreased oral intake (10) generalized weakness, multifactorial, secondary to all the above (11) history of left hydroureter (12) history of retroperitoneal lymphadenopathy (13) diabetes mellitus (14) history of hypertension (15) hyperlipidemia (16) osteopenia (17) sacral decubitus ulcer-necrotic, small superficial lumbar spine decubitus ulcer, small unstageable right heel ulcer unstageable, present on admission, surgery consulted. (18) hypokalemia Plan: Continue on current medication regime ,monitoring and symptomatic treatment. IV fluid hydration. Evaluated by oncology with recommendations noted and appreciated. Dr. Blair is attempting to discuss case with her oncologist, Dr. Bateman. Close monitoring of CBC, electrolytes with repeat labs ordered for a.m. Potassium supplementation ordered. Patient will require hospital bed at discharge ,related to pain with laying flat, bedrails will assist with repositioning given patient has pressure ulcers. Case management to arranging. Prognosis guarded given multiple complex medical problems. The impression and plan of care has been dictated as directed. : I performed a history and examination of this patient, discussed the same with the dictator. I agree with the dictator's note ,documented as a scribe. Any additional findings or plans will be noted.
--- NOTE | 2019-09-11 17:12 | P.PN ---
Subjective Progress Note Date: 09/11/19 This is a 58-year-old female with history of uterine cancer with metastasis to bones, possibly kidneys and liver as per spouse, follows with Dr. Bateman [employer]/ONC at [facility] along with Dr. Valdez for radiation oncology. Currently finishing up second week of 7 chemotherapy, 5 days a week, reports post radiation. Presented to the ER with worsening generalized weakness. Reports "not eating right" for greater than a week. Denies nausea or vomiting. Denies diarrhea. Denies abdominal pain. Reports difficulty performing ADLs including walking, complains of intermittent pain in bilateral thighs-anterior. Anticoagulated on Eliquis for PE. Denies chest pain, palpitations or shortness of breath. EKG reports sinus tachycardia, possible age undetermined inferior infarct. Troponin less than 0.012. Occasional dry nonproductive cough. chest x-ray nonacute.Denies currently any pain at this time. Afebrile, WBC 2.6. Neutrophils 69. Hemoglobin 11.8. Lactic acid on admission 5.5, received 2 L of fluid boluses currently down to 1.4. Borderline hypotension on admission, followed by hypotension in the plastic joint maker hours in the high 70s, currently in the low 100s on IV fluid hydration. UA negative, alk phos 264. BUN 27 creatinine 1.13. Calcium 10.4. 09/10/2019 hemoglobin 8.3, WBC 2.5, platelets 221. No signs/symptoms of bleeding. Necrotic decubitus ulcers, present on admission-surgery consulted. Afebrile. Borderline hypotension. Maintained on IV fluid hydration. Denies pain. Denies chest pain, palpitations or shortness of breath. Potassium 3.2. 09/11/2019 feeling better today, test and negative for C. difficile colitis, fecal management system in place. Evaluated by surgery and scheduled for debridement of sacral pressure ulcer, tomorrow. Hemoglobin 9, WBC 2.5, pl atelets 229. Potassium supplemented yesterday, currently 3.7. Denies pain. Denies lightheadedness, dizziness or focal deficits. Maintained om IV fluid hydration. Patient evaluated by physical therapy, unable to ambulate secondary to bilateral lower extremity weakness. Patient has challenges with bed mobility, strength, balance, transfers, endurance, ambulation. Recommending subacute rehab at discharge. Discussed case with Dr. Blair, oncology. Patient may be palliative appropriate-Dr. Blair will discuss case with patients own Oncologist, Dr. Bateman. Diet intake fluctuates from 0-50%. Afebrile, blood cultures no growth at 48 hours. Objective - Vital Signs Vital signs: Vital Signs Temp 98.5 F 09/11/19 12:10 Pulse 115 H 09/11/19 12:10 Resp 15 09/11/19 12:10 BP 110/73 09/11/19 12:10 Pulse Ox 98 09/11/19 12:10 Intake & Output 09/10/19 09/11/19 09/11/19 18:59 06:59 18:59 Intake Total 1400 1150 Balance 1400 1150 Intake: Intake, IV Titration 800 1150 Amount Potassium Chloride 10 meq 400 In Water For Injection 1 100ml.bag @ 100 mls/hr IVPB Q1HR JAYLENE Rx#: [id number] Sodium Chloride 0.9% 1, 800 750 000 ml @ 100 mls/hr IV . Q10H JAYLENE Rx#:[id number] Oral 600 Other: Voiding Method Diaper Bedpan Bedside Commode Incontinent Diaper Diaper Incontinent Incontinent # Voids 1 1 # Bowel Movements 3 1 - Exam GENERAL: This is a -58 year-old female in apparent distress at the time of examination. Pleasant and cooperative. Tired appearing HEENT: Head is atraumatic, normocephalic. Pupils are equal, round, and reactive to light. Sclerae anicteric. Conjunctivae are clear. Mucus membranes of the mouth are moist. Neck is supple. Right chest port accessed. RESPIRATORY: Clear to auscultation. No wheezes, rales, or rhonchi. No use of accessory muscles. Patient maintaining oxygen saturation greater than 95%. No chest wall tenderness is noted on palpation or with deep breathing. CARDIOVASCULAR: Regular rate and rhythm. S1 and S2 noted. No systolic or diastolic murmur auscultated. No JVD noted. No S3 or S4 noted. GASTROINTESTINAL: No distention noted. Abdomen soft and round. Normal active bowel sounds auscultated x 4 quadrants. No pain or tenderness noted upon palpation. INTEGUMENTARY: No cyanosis. No jaundice. No rashes noted. No cellulitis noted. Necrotic sacral decubitus 10 cm, small lumbar spine superficial decubitus ulcer, right small unstageable necrotic heel ulce-both present on admission. EXTREMITIES: 2+ peripheral pulses. No evidence of peripheral edema. No calf tenderness noted. NEUROLOGIC: Cranial nerves II-XII grossly intact. PSYCHIATRIC: Awake, alert, and oriented X 3. Appropriate affect. Intact judgemen t and insight. - Labs CBC & Chem 7: 09/11/19 08:11 09/11/19 08:11 Labs: Abnormal Lab Results - Last 24 Hours (Table) 09/10/19 09/10/19 09/11/19 Range/Units 18:05 18:05 08:11 WBC 3.2 L 2.5 L (3.8-10.6) k/uL RBC 2.87 L 2.94 L (3.80-5.40) m/uL Hgb 9.0 L 9.0 L (11.4-16.0) gm/dL Hct 28.5 L 29.2 L (34.0-46.0) % MCHC 30.9 L (31.0-37.0) g/dL RDW 16.7 H 16.8 H (11.5-15.5) % Lymphocytes # 0.3 L (1.0-4.8) k/uL Potassium 3.2 L (3.5-5.1) mmol/L Chloride (98-107) mmol/L Carbon Dioxide (22-30) mmol/L Glucose (74-99) mg/dL 09/11/19 Range/Units 08:11 WBC (3.8-10.6) k/uL RBC (3.80-5.40) m/uL Hgb (11.4-16.0) gm/dL Hct (34.0-46.0) % MCHC (31.0-37.0) g/dL RDW (11.5-15.5) % Lymphocytes # (1.0-4.8) k/uL Potassium (3.5-5.1) mmol/L Chloride 119 H (98-107) mmol/L Carbon Dioxide 17 L (22-30) mmol/L Glucose 151 H (74-99) mg/dL Microbiology - Last 24 Hours (Table) 09/09/19 01:20 Blood Culture - Preliminary Blood No Growth after 48 hours Assessment and Plan Assessment: (1) Dehydration, secondary to decreased oral intake from chemotherapy and radiation (2) acute renal failure from the above (3) hypotension secondary to volume depletion,#1 (4) lactic acidosis (5) bicytopenia (6) hypothyroidism (7) history of uterine cancer with metastasis, currently receiving chemotherapy, radiation outpatient (8) L3 pathological compression fracture, history of. (9) moderate protein calorie malnutrition, BMI 16.5, albumin 3.1, secondary to weight loss from decreased oral intake (10) generalized weakness, multifactorial, secondary to all the above (11) history of left hydroureter (12) history of retroperitoneal lymphadenopathy (13) diabetes mellitus (14) history of hypertension (15) hyperlipidemia (16) osteopenia (17) sacral decubitus ulcer-necrotic, small superficial lumbar spine decubitus ulcer, small unstageable right heel ulcer unstageable, present on admission, surgery consulted. (18) hypokalemia Plan: Continue on current medication regime ,monitoring and symptomatic treatment. IV fluid hydration. Debridement scheduled for tomorrow with surgery. Further recommendations as per oncology. Possible subacute rehab at discharge. Close monitoring of CBC, electrolytes with repeat labs ordered for a.m. Prognosis guarded given multiple complex medical problems. The impression and plan of care has been dictated as directed. : I performed a history and examination of this patient, discussed the same with the dictator. I agree with the dictator's note ,documented as a scribe. Any additional findings or plans will be noted.
[2019-09-11] MEDS: SENNOSIDES-DOCUSATE SODIUM 1 EACH TAB PO SCH (19:43)
[2019-09-11] MEDS ORDERED: POTASSIUM CHLORIDE ER 20 MEQ TAB.ER PO ONE (20:00)
[2019-09-11] MEDS: MIRTAZAPINE 15 MG TAB PO SCH (22:15)
[2019-09-12] MEDS: MORPHINE SULFATE ER 30 MG TABLET PO SCH ×4 (00:17→23:39)
[2019-09-12] MEDS: SODIUM CHLORIDE 0.9% 1,000 ML IV SCH ×4 (00:17→23:38)
[2019-09-12] MEDS: GABAPENTIN 100 MG CAP PO SCH ×4 (00:17→20:44)
[2019-09-12] MEDS ORDERED: HYDROmorphone 0.5 MG/0.5 ML SYRINGE IVP PRN (07:25)
[2019-09-12] MEDS ORDERED: DEXAMETHASONE SOD PHOSPHATE 10 MG/ML 1 ML VIAL IV ONE (07:25)
[2019-09-12] MEDS ORDERED: ONDANSETRON 4 MG/2 ML VIAL IVP ONE (07:25)
[2019-09-12 08:03] LABS: Anisocytosis Slight; Basophils % (A) 1 %; Eosinophils # (A) 0.1 k/uL (0-0.7); Eosinophils % (A) 4 %; HGB 7.7 gm/dL (11.4-16.0); Hypochromasia Moderate; Lymphocytes # (A) 0.3 k/uL (1.0-4.8); Lymphocytes % (A) 9 %; MCH 31.5 pg (25.0-35.0); MCHC 32.1 g/dL (31.0-37.0); MCV 98.3 fL (80.0-100.0); Macrocytosis Slight; Mean Platelet Volume 7.8; Monocytes # (A) 0.1 k/uL (0-1.0); Monocytes % (A) 3 %; Neutrophils # (A) 2.9 k/uL (1.3-7.7); Neutrophils % (A) 82 %; Platelet Count 186 k/uL (150-450); RBC 2.44 m/uL (3.80-5.40); RDW 16.9 % (11.5-15.5); WBC 3.5 k/uL (3.8-10.6)
[2019-09-12 08:20] LABS: African American GFR (CKD) >90 (>60 ml/min/1.73 sqM); Anion Gap 7 mmol/L; Blood Urea Nitrogen 11 mg/dL (7-17); Calcium 7.8 mg/dL (8.4-10.2); Carbon Dioxide 18 mmol/L (22-30); Chloride 118 mmol/L (98-107); Glucose 145 mg/dL (74-99); Magnesium 1.8 mg/dL (1.6-2.3); Potassium 3.3 mmol/L (3.5-5.1); Sodium 143 mmol/L (137-145)
[2019-09-12] MEDS: PANTOPRAZOLE 40 MG TABLET PO SCH (08:50)
[2019-09-12] MEDS: APIXABAN 5 MG TAB PO SCH ×2 (08:56→20:45)
[2019-09-12 10:12] LABS: Rouleaux Present
[2019-09-12 10:13] LABS: Polychromasia Present
[2019-09-12] MEDS: LACTATED RINGERS 1,000 ML IV SCH (11:27)
[2019-09-12] MEDS ORDERED: MIDAZOLAM 2 MG/2 ML VIAL ONE (11:38)
[2019-09-12] MEDS ORDERED: fentaNYL (PF) 50 MCG/ML 2 ML AMP ONE (11:38)
[2019-09-12] MEDS ORDERED: PROPOFOL 10 MG/ML 20 ML VIAL IV ONE (11:38)
[2019-09-12] MEDS ORDERED: SODIUM CHLORIDE 0.9% 50 ML with ceFAZolin 2,000 MG IV ONE ×4 (12:00)
--- NOTE | 2019-09-12 12:15 | P.OP ---
Date of Procedure: 09/12/19 Preoperative Diagnosis: Sacral decubitus ulcer Postoperative Diagnosis: Sacral decubitus ulcer Procedure(s) Performed: Debridement of sacral decubitus ulcer Anesthesia: DELFIN Surgeon: oClin Akhtar Estimated Blood Loss (ml): 5 Pathology: other (Sacral decubitus ulcer) Condition: stable Disposition: PACU Description of Procedure: The patient's placed on the operating table in the lateral position. She received IV sedation. The decubitus ulcer was prepped and draped in sterile fashion. Using a 15 blade the skin was incised around the edge of the decubitus ulcer. Then using cautery the necrotic skin and fat and muscle were debrided with sharp dissection and electro cautery.. The specimen measured approximately 10 x 15 x 3 cm. There was full tissue necrosis of the decubitus ulcer. Hemostasis achieved with electrocautery. The wound was packed with wet-to-dry Kerlix. Patient top procedure well and was sent to recovery room stable condition.
--- NOTE | 2019-09-12 13:03 | MR ---
EXAMINATION TYPE: MR brain wo/w con DATE OF EXAM: 09/12/2019 COMPARISON: None HISTORY: mental status changes, metastatic sarcoma TECHNIQUE: Multiplanar, multisequence images of the brain and brainstem is performed without and with IV contras t, utilizing 4.5 mL intravenous Gadavist . FINDINGS: Diffusion weighted images demonstrate no evidence of a recent infarct or other diffusion ab normality. Mild generalized degenerative change. Very minimal periventricular abnormal signal likely in the basi s of remote microvascular ischemia. Midline structures demonstrate normal morphology. The craniocervical junction appears within normal limits. Post contrast images demonstrate no abnormal enhancement. The dural venous sinuses appear pa tent. Changes of chronic left sinusitis and right mastoiditis. IMPRESSION: 1. No acute intracranial process. No enhancing masses. 2 degenerative change with nonspecific white m atter changes.
[2019-09-12] MEDS: POTASSIUM CHLORIDE 20 MEQ in WATER FOR INJECTION 1 100ML.BAG IVPB SCH ×2 (14:20→16:31)
[2019-09-12] MEDS ORDERED: Magnesium Replacement Protocol 1 EACH MISC MISCELLANE PRN (14:35)
--- NOTE | 2019-09-12 14:50 | P.PN ---
Subjective Progress Note Date: 09/12/19 This is a 58-year-old female with history of uterine cancer with metastasis to bones, possibly kidneys and liver as per spouse, follows with Dr. Bateman [employer]/ONC at [facility] along with Dr. Valdez for radiation oncology. Currently finishing up second week of 7 chemotherapy, 5 days a week, reports post radiation. Presented to the ER with worsening generalized weakness. Reports "not eating right" for greater than a week. Denies nausea or vomiting. Denies diarrhea. Denies abdominal pain. Reports difficulty performing ADLs including walking, complains of intermittent pain in bilateral thighs-anterior. Anticoagulated on Eliquis for PE. Denies chest pain, palpitations or shortness of breath. EKG reports sinus tachycardia, possible age undetermined inferior infarct. Troponin less than 0.012. Occasional dry nonproductive cough. chest x-ray nonacute.Denies currently any pain at this time. Afebrile, WBC 2.6. Neutrophils 69. Hemoglobin 11.8. Lactic acid on admission 5.5, received 2 L of fluid boluses currently down to 1.4. Borderline hypotension on admission, followed by hypotension in the order editor hours in the high 70s, currently in the low 100s on IV fluid hydration. UA negative, alk phos 264. BUN 27 creatinine 1.13. Calcium 10.4. 09/10/2019 hemoglobin 8.3, WBC 2.5, platelets 221. No signs/symptoms of bleeding. Necrotic decubitus ulcers, present on admission-surgery consulted. Afebrile. Borderline hypotension. Maintained on IV fluid hydration. Denies pain. Denies chest pain, palpitations or shortness of breath. Potassium 3.2. 09/11/2019 feeling better today, tested negative for C. difficile colitis, fecal management system in place. Evaluated by surgery and scheduled for debridement of sacral pressure ulcer, tomorrow. Hemoglobin 9, WBC 2.5, platelets 229. Potassium supplemented yesterday, currently 3.7. Denies pain. Denies lightheadedness, dizziness or focal deficits. Maintained om IV fluid hydration. Patient evaluated by physical therapy, unable to ambulate secondary to bilateral lower extremity weakness. Patient has challenges with bed mobility, strength, balance, transfers, endurance, ambulation. Recommending subacute rehab at discharge. Discussed case with Dr. Blair, oncology. Patient may be palliative appropriate-Dr. Blair will discuss case with patients own Oncologist, Dr. Bateman. Diet intake fluctuates from 0-50%. Afebrile, blood cultures no growth at 48 hours. 09/12/2019 NPO, scheduled for debridement today. Afebrile, WBC 3.5, hemoglobin 7.7, platelets 186, potassium 3.3, magnesium 1.8. Objective - Vital Signs Vital signs: Vital Signs Temp 98.4 F 09/12/19 07:18 Pulse 105 H 09/12/19 07:21 Resp 16 09/12/19 07:21 BP 102/68 09/12/19 07:18 Pulse Ox 95 09/12/19 07:18 Intake & Output 09/11/19 09/12/19 09/12/19 18:59 06:59 18:59 Intake Total 237 900 Balance 237 900 Intake: Intake, IV Titration 900 Amount Sodium Chloride 0.9% 1, 900 000 ml @ 100 mls/hr IV . Q10H JAYLENE Rx#:[id number] Oral 237 Other: Voiding Method Bedside Commode Bedside Commode Bedside Commode Diaper Diaper Diaper Incontinent Incontinent Incontinent # Voids 1 1 # Bowel Movements 1 - Exam GENERAL: This is a -58 year-old female in apparent distress at the time of examination. Pleasant and cooperative. Tired appearing HEENT: Head is atraumatic, normocephalic. Pupils are equal, round, and reactive to light. Sclerae anicteric. Conjunctivae are clear. Mucus membranes of the mouth are moist. Neck is supple. Right chest port accessed. RESPIRATORY: Clear to auscultation. No wheezes, rales, or rhonchi. No use of accessory muscles. Patient maintaining oxygen saturation greater than 95%. No chest wall tenderness is noted on palpation or with deep breathing. CARDIOVASCULAR: Regular rate and rhythm. S1 and S2 noted. No systolic or diastolic murmur auscultated. No JVD noted. No S3 or S4 noted. GASTROINTESTINAL: No distention noted. Abdomen soft and round. Normal active bowel sounds auscultated x 4 quadrants. No pain or tenderness noted upon palpation. INTEGUMENTARY: No cyanosis. No jaundice. No rashes noted. No cellulitis noted. Necrotic sacral decubitus 10 cm, small lumbar spine superficial decubitus ulcer, right small unstageable necrotic heel ulce-both present on admission. EXTREMITIES: 2+ peripheral pulses. No evidence of peripheral edema. No calf tenderness noted. NEUROLOGIC: Cranial nerves II-XII grossly intact. PSYCHIATRIC: Awake, alert, and oriented X 3. Appropriate affect. Intact judgement and insight. - Labs CBC & Chem 7: 09/12/19 07:38 09/12/19 07:38 Labs: Abnormal Lab Results - Last 24 Hours (Table) 09/11/19 09/11/19 09/12/19 Range/Units 08:11 08:11 07:38 WBC 2.5 L 3.5 L (3.8-10.6) k/uL RBC 2.94 L 2.44 L (3.80-5.40) m/uL Hgb 9.0 L 7.7 L (11.4-16.0) gm/dL Hct 29.2 L 24.0 L (34.0-46.0) % MCHC 30.9 L (31.0-37.0) g/dL RDW 16.8 H 16.9 H (11.5-15.5) % Lymphocytes # 0.3 L (1.0-4.8) k/uL Potassium (3.5-5.1) mmol/L Chloride 119 H (98-107) mmol/L Carbon Dioxide 17 L (22-30) mmol/L Glucose 151 H (74-99) mg/dL Calcium (8.4-10.2) mg/dL 09/12/19 Range/Units 07:38 WBC (3.8-10.6) k/uL RBC (3.80-5.40) m/uL Hgb (11.4-16.0) gm/dL Hct (34.0-46.0) % MCHC (31.0-37.0) g/dL RDW (11.5-15.5) % Lymphocytes # (1.0-4.8) k/uL Potassium 3.3 L (3.5-5.1) mmol/L Chloride 118 H (98-107) mmol/L Carbon Dioxide 18 L (22-30) mmol/L Glucose 145 H (74-99) mg/dL Calcium 7.8 L (8.4-10.2) mg/dL Microbiology - Last 24 Hours (Table) 09/09/19 01:20 Blood Culture - Preliminary Blood No Growth after 72 hours Assessment and Plan Assessment: (1) Dehydration, secondary to decreased oral intake from chemotherapy and radiation (2) acute renal failure from the above (3) hypotension secondary to volume depletion,#1 (4) lactic acidosis (5) bicytopenia (6) hypothyroidism (7) history of uterine cancer with metastasis, currently receiving chemotherapy, radiation outpatient (8) L3 pathological compression fracture, history of. (9) moderate protein calorie malnutrition, BMI 16.5, albumin 3.1, secondary to weight loss from decreased oral intake (10) generalized weakness, multifactorial, secondary to all the above (11) history of left hydroureter (12) history of retroperitoneal lymphadenopathy (13) diabetes mellitus (14) history of hypertension (15) hyperlipidemia (16) osteopenia (17) sacral decubitus ulcer-necrotic, small superficial lumbar spine decubitus ulcer, small unstageable right heel ulcer unstageable, present on admission (18) hypokalemia Plan: Continue on current medication regime ,monitoring and symptomatic treatment. IV fluid hydration. Debridement scheduled for today. Further recommendations as per oncology. Possible subacute rehab at discharge. Close monitoring of CBC, electrolytes with repeat labs ordered for a.m. Prognosis guarded given multiple complex medical problems. The impression and plan of care has been dictated as directed. : I performed a history and examination of this patient, discussed the same with the dictator. I agree with the dictator's note ,documented as a scribe. Any additional findings or plans will be noted.
[2019-09-12] MEDS: oxyCODONE-APAP 7.5-325MG 1 EACH TAB PO PRN (19:00)
[2019-09-12] MEDS: SENNOSIDES-DOCUSATE SODIUM 1 EACH TAB PO SCH (20:44)
[2019-09-12] MEDS: MIRTAZAPINE 15 MG TAB PO SCH (20:45)
[2019-09-13] MEDS: MORPHINE SULFATE 4 MG/ML SYRINGE IV PRN ×2 (07:48→12:25)
[2019-09-13] MEDS: PANTOPRAZOLE 40 MG TABLET PO SCH (07:55)
[2019-09-13] MEDS: GABAPENTIN 100 MG CAP PO SCH ×2 (07:55→17:12)
[2019-09-13] MEDS: APIXABAN 5 MG TAB PO SCH ×2 (07:55→19:19)
[2019-09-13] MEDS: MORPHINE SULFATE ER 30 MG TABLET PO SCH ×2 (08:50→17:12)
[2019-09-13] MEDS: SODIUM CHLORIDE 0.9% 1,000 ML IV SCH (09:04)
[2019-09-13] MEDS: LACTATED RINGERS 1,000 ML IV SCH (11:10)
--- NOTE | 2019-09-13 14:54 | P.PN ---
Subjective Progress Note Date: 09/13/19 CHIEF COMPLAINT: Sacral decubitus ulcer HISTORY OF PRESENT ILLNESS: Patient is status post debridement of sacral decubitus ulcer with Dr. Akhtar. Postoperative day #1. Patient reports her pain is tolerable. PHYSICAL EXAM: VITAL SIGNS: Reviewed. GENERAL: Well-developed in no acute distress. HEENT: No sclera icterus. Extraocular movements grossly intact. Moist buccal mucosa. Head is atraumatic, normocephalic. ABDOMEN: Soft. Nondistended. Nontender. NEUROLOGIC: Alert and oriented. Cranial nerves II through XII grossly intact. SKIN: Dressing to sacrum clean dry intact. Currently with Kerlix packing ASSESSMENT: 1. Sacral decubitus ulcer, s/p surgical debridement PLAN: Infectious disease has been consulted for wound care No further surgical intervention recommended at this time Nurse practitioner note has been reviewed by physician. Signing provider agrees with the documented findings, assessment, and plan of care. Objective - Vital Signs Vital signs: Vital Signs Temp 98.1 F 09/13/19 09:49 Pulse 118 H 09/13/19 09:49 Resp 18 09/13/19 09:49 BP 131/86 09/13/19 09:49 Pulse Ox 98 09/13/19 09:49 Intake & Output 09/12/19 09/13/19 09/13/19 18:59 06:59 18:59 Intake Total 600 880 Output Total 5 Balance 595 880 Weight 44.906 kg 44.906 kg Intake: IV 300 Intake, IV Titration 300 400 Amount Sodium Chloride 0.9% 1, 300 400 000 ml @ 100 mls/hr IV . Q10H JAYLENE Rx#:[id number] Oral 480 Output: Estimated Blood Loss 5 Other: Voiding Method Bedside Commode Bedside Commode Bedpan Diaper Diaper Diaper Incontinent Incontinent Incontinent # Voids 1 2 - Labs CBC & Chem 7: 09/12/19 07:38 09/12/19 19:43 Labs: Microbiology - Last 24 Hours (Table) 09/09/19 01:20 Blood Culture - Preliminary Blood No Growth after 96 hours
--- NOTE | 2019-09-13 16:18 | P.PN ---
Subjective Progress Note Date: 09/13/19 This is a 58-year-old female with history of uterine cancer with metastasis to bones, possibly kidneys and liver as per spouse, follows with Dr. 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 Valdez for radiation oncology. Currently finishing up second week of 7 chemotherapy, 5 days a week, reports post radiation. Presented to the ER with worsening generalized weakness. Reports "not eating right" for greater than a week. Denies nausea or vomiting. Denies diarrhea. Denies abdominal pain. Reports difficulty performing ADLs including walking, complains of intermittent pain in bilateral thighs-anterior. Anticoagulated on Eliquis for PE. Denies chest pain, palpitations or shortness of breath. EKG reports sinus tachycardia, possible age undetermined inferior infarct. Troponin less than 0.012. Occasional dry nonproductive cough. chest x-ray nonacute.Denies currently any pain at this time. Afebrile, WBC 2.6. Neutrophils 69. Hemoglobin 11.8. Lactic acid on admission 5.5, received 2 L of fluid boluses currently down to 1.4. Borderline hypotension on admission, followed by hypotension in the ob gyn physician assistant hours in the high 70s, currently in the low 100s on IV fluid hydration. UA negative, alk phos 264. BUN 27 creatinine 1.13. Calcium 10.4. 09/10/2019 hemoglobin 8.3, WBC 2.5, platelets 221. No signs/symptoms of bleeding. Necrotic decubitus ulcers, present on admission-surgery consulted. Afebrile. Borderline hypotension. Maintained on IV fluid hydration. Denies pain. Denies chest pain, palpitations or shortness of breath. Potassium 3.2. 09/11/2019 feeling better today, tested negative for C. difficile colitis, fecal management system in place. Evaluated by surgery and scheduled for debridement of sacral pressure ulcer, tomorrow. Hemoglobin 9, WBC 2.5, platelets 229. Potassium supplemented yesterday, currently 3.7. Denies pain. Denies lightheadedness, dizziness or focal deficits. Maintained om IV fluid hydration. Patient evaluated by physical therapy, unable to ambulate secondary to bilateral lower extremity weakness. Patient has challenges with bed mobility, strength, balance, transfers, endurance, ambulation. Recommending subacute rehab at discharge. Discussed case with Dr. Blair, oncology. Patient may be palliative appropriate-Dr. Blair will discuss case with patients own Oncologist, Dr. Bateman. Diet intake fluctuates from 0-50%. Afebrile, blood cultures no growth at 48 hours. 09/12/2019 NPO, scheduled for debridement today. Afebrile, WBC 3.5, hemoglobin 7.7, platelets 186, potassium 3.3, magnesium 1.8. 09/13/2019 status post sacral ulcer debridement, postop day #1. Tolerated procedure well. Complains of tenderness. Afebrile, blood cultures negative. Objective - Vital Signs Vital signs: Vital Signs Temp 98.1 F 09/13/19 09:49 Pulse 118 H 09/13/19 09:49 Resp 18 09/13/19 09:49 BP 131/86 09/13/19 09:49 Pulse Ox 98 09/13/19 09:49 Intake & Output 09/12/19 09/13/19 09/13/19 18:59 06:59 18:59 Intake Total 600 880 Output Total 5 Balance 595 880 Weight 44.906 kg Intake: IV 300 Intake, IV Titration 300 400 Amount Sodium Chloride 0.9% 1, 300 400 000 ml @ 100 mls/hr IV . Q10H [facility] Rx#:[id number] Oral 480 Output: Estimated Blood Loss 5 Other: Voiding Method Bedside Commode Bedside Commode Bedpan Diaper Diaper Diaper Incontinent Incontinent Incontinent # Voids 1 2 - Exam GENERAL: This is a -58 year-old female in apparent distress at the time of examination. Pleasant and cooperative. HEENT: Head is atraumatic, normocephalic. Pupils are equal, round, and reactive to light. Sclerae anicteric. Conjunctivae are clear. Mucus membranes of the mouth are moist. Neck is supple. Right chest port accessed. RESPIRATORY: Clear to auscultation. No wheezes, rales, or rhonchi. No use of accessory muscles. Patient maintaining oxygen saturation greater than 95%. No chest wall tenderness is noted on palpation or with deep breathing. CARDIOVASCULAR: Regular rate and rhythm. S1 and S2 noted. No systolic or diastolic murmur auscultated. No JVD noted. No S3 or S4 noted. GASTROINTESTINAL: No distention noted. Abdomen soft and round. Normal active bowel sounds auscultated x 4 quadrants. No pain or tenderness noted upon palpation. INTEGUMENTARY: No cyanosis. No jaundice. No rashes noted. No cellulitis noted. sacral dressing clean dry and intact, small lumbar spine superficial decubitus ulcer EXTREMITIES: 2+ peripheral pulses. No evidence of peripheral edema. No calf tenderness noted. right small unstageable necrotic heel ulcer /wearing boot NEUROLOGIC: Cranial nerves II-XII grossly intact. PSYCHIATRIC: Awake, alert, and oriented X 3. Appropriate affect. Intact judgement and insight. - Labs CBC & Chem 7: 09/12/19 07:38 09/12/19 19:43 Labs: Abnormal Lab Results - Last 24 Hours (Table) 09/12/19 Range/Units 07:38 WBC 3.5 L (3.8-10.6) k/uL RBC 2.44 L (3.80-5.40) m/uL Hgb 7.7 L (11.4-16.0) gm/dL Hct 24.0 L (34.0-46.0) % RDW 16.9 H (11.5-15.5) % Lymphocytes # 0.3 L (1.0-4.8) k/uL Microbiology - Last 24 Hours (Table) 09/09/19 01:20 Blood Culture - Preliminary Blood No Growth after 96 hours Assessment and Plan Assessment: (1) Dehydration, secondary to decreased oral intake from chemotherapy and radiation (2) acute renal failure from the above (3) hypotension secondary to volume depletion,#1 (4) lactic acidosis (5) bicytopenia (6) hypothyroidism (7) history of uterine cancer with metastasis, currently receiving chemotherapy, radiation outpatient (8) L3 pathological compression fracture, history of. (9) moderate protein calorie malnutrition, BMI 16.5, albumin 3.1, secondary to weight loss from decreased oral intake (10) generalized weakness, multifactorial, secondary to all the above (11) history of left hydroureter (12) history of retroperitoneal lymphadenopathy (13) diabetes mellitus (14) history of hypertension (15) hyperlipidemia (16) osteopenia (17) sacral decubitus ulcer-necrotic, status post debridement; small superficial lumbar spine decubitus ulcer, small unstageable right heel ulcer unstageable, present on admission (18) hypokalemia (19) anemia, chronic, secondary to malignancy, he will therapy Plan: Continue on current medication regime ,monitoring and symptomatic treatment. Maintain gentle IV fluid hydration. Infectious disease consulted for wound care management. Close monitoring of electrolytes, hemoglobin with repeat labs ordered for a.m. Dr. Blair discussed with patient's oncologist Dr. Bateman, potential immunotherapy; patient currently extremely weak, would benefit from subacute rehab at discharge. Further oncology recommendations pending.Close monitoring of CBC, electrolytes with repeat labs ordered for a.m. Prognosis guarded given multiple complex medical problems. The impression and plan of care has been dictated as directed. : I performed a history and examination of this patient, discussed the same with the dictator. I agree with the dictator's note ,documented as a scribe. Any additional findings or plans will be noted.
[2019-09-13] MEDS: AMPICILLIN-SULBACTAM 1.5 GM in SODIUM CHLORIDE 0.9% 50 ML IVPB SCH (17:53)
[2019-09-13 18:11] LABS: Anisocytosis Slight; HCT 26.5 % (34.0-46.0); HGB 8.6 gm/dL (11.4-16.0); Hypochromasia Slight; MCH 31.2 pg (25.0-35.0); MCHC 32.4 g/dL (31.0-37.0); MCV 96.3 fL (80.0-100.0); Mean Platelet Volume 7.2; Platelet Count 185 k/uL (150-450); RBC 2.75 m/uL (3.80-5.40); RDW 16.9 % (11.5-15.5); WBC 5.1 k/uL (3.8-10.6)
[2019-09-13 18:55] LABS: Band Neutrophils % 10 %; Eosinophils # (M) 0.05 k/uL (0-0.7); Lymphocytes # (M) 0.82 k/uL (1.0-4.8); Metamyelocytes % 2 %; Neutrophils % (M) 69 %; Nucleated Red Blood Cells 0 /100 WBC (0-0); Total Cells Counted 100
[2019-09-13 18:55] LABS: Appearance,Urine Turbid (Clear); Bacteria,Urine Many /hpf; Bilirubin,Urine Negative (Negative); Blood,Urine Small (Negative); Color,Urine Yellow; Glucose,Urine (UA) 2+ (Negative); Ketones,Urine Negative (Negative); Leukocyte Esterase,Urine Large (Negative); Nitrite,Urine Positive (Negative); Protein,Urine 3+ (Negative); RBC,Urine 67 /hpf (0-5); Urobilinogen,Urine <2.0 mg/dL (<2.0); WBC,Urine >182 /hpf (0-5)
[2019-09-13] MEDS: SENNOSIDES-DOCUSATE SODIUM 1 EACH TAB PO SCH (19:19)
[2019-09-13] MEDS: oxyCODONE-APAP 7.5-325MG 1 EACH TAB PO PRN (19:19)
[2019-09-13] MEDS: MIRTAZAPINE 15 MG TAB PO SCH (19:19)
--- NOTE | 2019-09-13 22:02 | P.CONS ---
History of Present Illness - Reason for Consult Consult date: 09/13/19 - Chief Complaint wounds - History of Present Illness 58-year-old female who has a history of prior uterine cancer from 6 years prior. At that time she underwent surgical intervention and local radiation therapy. In February 2018 the patient presented and had severe back pain and progressive weakness increasing difficulty with walking and consequently presented to the hospital. There there was evidence of pathological fracture of the L3 as well as retroperitoneal lymphadenopathy. Biopsy confirmed high grade sarcoma. She subsequently has been treated with chemotherapy and radiation therapy, and now has a two-week history of progressive weakness and presents to hospital with dehydration poor oral intake and development of progressive pressure ulcerations. She lives in the family home with her but he works all day and she is getting to the point where she simply can't get out of bed and has now developed these extensive ulcerations. She feels very poorly she has severe fatigue she has no desire to eat although she does not have pain when she is eating. It is clarified at this time that she is full code. The consult is requested given the patient's extensive ulcerations and wound care and antibiotic therapy. Review of Systems Patient is cachectic, poor historian but relates: HEENT:Denies headache or acute visual change. Denies sinus or mouth discomforts. Denies neck stiffness or pain. Denies significant oral cavity pain. Denies difficulty on swallowing. Oral cavity that was dry and she has no appetite Lungs: She does not believe she has shortness of breath, cough, sputum production, or hemoptysis. Cardiovascular: Denies significant shortness of breath, chest pain, chest wall pain, orthopnea, dyspnea on exertion, syncope Gastrointestinal: Did relate that she was constipated before admission he has had extensive amount of stooling and is now no longer having large amounts of stool, testing was negative for C. diff. Musculoskeletal: He has severe chronic back pain that is debilitated her. She is no longer able to ambulate at this time Skin: As noted is developed extensive pressure ulcerations Neuro: Denies headache or visual change. Increasing weakness difficulty with ambulation does not relate that she's had a fall or seizures. Psychiatric: Patient has a flat affect, and as noted is a very poor historian Endocrine: Severe fatigue and cachexia Past Medical History Past Medical History: Cancer, Diabetes Mellitus, Hyperlipidemia, Hypertension, Thyroid Disorder Additional Past Medical History / Comment(s): 2012 Uterine cancer with hysterectomy and radiation, NIDDM-loss, neuropathy bilateral feet, hypothyroid, back cancer rad M-[facility] n [place], [facility] due to Radaiation History of Any Multi-Drug Resistant Organisms: None Reported Past Surgical History: Section, Hysterectomy, Orthopedic Surgery Additional Past Surgical History / Comment(s): x 2, L foot bone spur Past Anesthesia/Blood Transfusion Reactions: Motion Sickness, Postoperative Nausea & Vomiting (PONV) Past Psychological History: No Psychological Hx Reported Additional Psychological History / Comment(s): Pt resides with her spouse and family and friends assist her. She uses a walker at home. Patient has glucometer. works full-time and while he is at work she needs to fens for herself. Smoking Status: Never smoker Past Alcohol Use History: None Reported Past Drug Use History: None Reported - Past Family History Father Family Medical History: Myocardial Infarction (NM) Additional Family Medical History / Comment(s): Father had a NM at the age of 85 yrs. Mother Family Medical History: Osteoarthritis (OA), Skin Disorder, Thyroid Disorder Additional Family Medical History / Comment(s): Psoriasis. Medications and Allergies Home Medications and Allergies Comment(s): Current Medications Apixaban (Eliquis) 5 mg PO BID [facility] Last Admin: 09/13/19 19:19 Dose: 5 mg Documented by: Gabapentin (Neurontin) 100 mg PO Q8HR [facility] Last Admin: 09/13/19 17:12 Dose: 100 mg Documented by: Sodium Chloride (Saline 0.9%) 1,000 mls @ 100 mls/hr IV .Q10H [facility] Last Admin: 09/13/19 09:04 Dose: 100 mls/hr Documented by: Lactated Ringer's (Lactated Ringers) 1,000 mls @ 20 mls/hr IV .Q24H [facility] Last Admin: 09/13/19 11:10 Dose: Not Given Documented by: Ampicillin Sodium/Sulbactam (Sodium 1.5 gm/ Sodium Chloride) 50 mls @ 100 mls/ hr IVPB Q6HR [facility] Last Admin: 09/13/19 17:53 Dose: 100 mls/hr Documented by: Mirtazapine (Remeron) 7.5 mg PO HS [facility] Last Admin: 09/13/19 19:19 Dose: 7.5 mg Documented by: Miscellaneous Information (Potassium Per Protocol) 1 each MISCELLANE DAILY PRN; Protocol PRN Reason: Per Protocol Miscellaneous Information (Magnesium Per Protocol) 1 each MISCELLANE DAILY PRN; Protocol PRN Reason: Per Protocol Morphine Sulfate (Morphine Sulfate (Inj)) 4 mg IV Q4HR PRN PRN Reason: Severe Pain Last Admin: 09/13/19 12:25 Dose: 4 mg Documented by: Morphine Sulfate (Ms Contin) 30 mg PO Q8HR [facility] Last Admin: 09/13/19 17:12 Dose: 30 mg Documented by: Naloxone HCl (Narcan) 0.2 mg IV Q2M PRN PRN Reason: Opioid Reversal Ondansetron HCl (Zofran) 8 mg PO Q8HR PRN PRN Reason: Nausea And Vomiting Last Admin: 09/10/19 20:52 Dose: 8 mg Documented by: Oxycodone/Acetaminophen (Percocet 7.5-325) 1 each PO Q4HR PRN PRN Reason: Pain Last Admin: 09/13/19 19:19 Dose: 1 each Documented by: Pantoprazole Sodium (Protonix) 40 mg PO -BRKFST [facility] Last Admin: 09/13/19 07:55 Dose: 40 mg Documented by: Prochlorperazine Maleate (Compazine) 10 mg PO Q6HR PRN PRN Reason: Nausea And Vomiting Last Admin: 09/09/19 20:44 Dose: 10 mg Documented by: Senna/Docusate Sodium (Senokot-S) 2 each PO [facility] Last Admin: 09/13/19 19:19 Dose: 2 each Documented by: Home Medications Medication Instructions Recorded Confirmed Type Apixaban [Eliquis] 5 mg PO BID 09/08/19 09/08/19 History Gabapentin [Neurontin] 100 mg PO Q8H 09/08/19 09/08/19 History Mirtazapine 7.5 mg PO 09/08/19 09/08/19 History Morphine Sulfate ER [Ms Contin] 30 mg PO Q8H 09/08/19 09/08/19 History Prochlorperazine [Compazine] 10 mg PO Q6H 09/08/19 09/09/19 History Sennosides-Docusate Sodium 2 tab PO 09/08/19 09/08/19 History [Senokot-S] oxyCODONE HCL/ACETAMINOPHEN 1 tab PO Q4HR PRN 09/08/19 09/08/19 History [Percocet 7.5-325 mg] Ondansetron [Zofran] 8 mg PO Q8HR PRN 09/09/19 09/09/19 History Allergies Allergy/AdvReac Type Severity Reaction Status Date / Time latex Allergy Rash/Hives Verified 09/08/19 18:56 Physical Exam Vitals: Vital Signs Temp Pulse Resp BP Pulse Ox 09/13/19 13:23 98.1 F 117 H 18 120/77 97 09/13/19 11:32 98.0 F 125 H 18 120/81 99 09/13/19 09:49 98.1 F 118 H 18 131/86 98 09/13/19 09:23 95 18 09/13/19 08:47 97.8 F 94 18 139/80 97 09/13/19 07:19 98.1 F 114 H 16 135/89 97 09/13/19 04:57 97.8 F 105 H 18 112/71 98 09/12/19 23:40 16 Intake and Output 09/13/19 09/13/19 09/13/19 06:59 14:59 22:59 Intake Total 400 Balance 400 Intake: Intake, IV Titration 400 Amount Sodium Chloride 0.9% 1, 400 000 ml @ 100 mls/hr IV . Q10H [facility] Rx#:[id number] Other: Voiding Method Bedside Commode Bedpan Bedpan Diaper Diaper Diaper Incontinent Incontinent Incontinent # Voids 2 1 Weight 44.906 kg Cachectic 58-year-old woman HEENT: Anicteric conjunctiva are pink and moist nasal mucosa grossly intact without significant lesions, there is no thrush. Oral cavity is dry, she has alopecia Neck: The neck is supple without significant lymphadenopathy or thyromegaly. Lungs: Good bilateral air entry without significant crackles or wheezing. There is no significant bronchial sounds. There is no egophony or dullness. Heart: Regular rate and rhythm with an audible S1-S2, no S3 no S4. There is no significant murmur click or rub, PMI was nondisplaced. Abdomen: Scaphoid, Positive bowel sounds soft and nontender without palpable masses or organomegaly. There was no guarding or rebound. Extremities: The upper extremities have excellent pulses they are symmetric, no significant petechiae or telangiectasia. No splinter hemorrhages were noted. The lower extremities are free from significant edema. The peripheral pulses were 2+ and symmetric. There is profound muscular wasting Neuro: She is arousable upon arrival into the room. She seems capable of answering some simple questions but has very poor concentration. Flat affect does not want to interact with the observer complaints of significant pain when she is evaluated Please refer to the nursing photography for the coccyx ulceration is undergone surgical debridement, she also has a pressure ulceration on the thoracic spine and a preoperative lesion more proximal in the spine. The patient is incontinent of urine and stool. Results CBC & Chem 7: 09/13/19 17:50 09/12/19 19:43 Labs: Abnormal Lab Results - Last 24 Hours (Table) 09/13/19 09/13/19 09/13/19 Range/Units 17:50 17:50 18:25 RBC 2.75 L (3.80-5.40) m/uL Hgb 8.6 L (11.4-16.0) gm/dL Hct 26.5 L (34.0-46.0) % RDW 16.9 H (11.5-15.5) % Lymphocytes # (Manual) 0.82 L (1.0-4.8) k/uL Metamyelocytes # (Man) 0.10 H (0) k/uL C-Reactive Protein >90.0 H (<10.0) mg/L Urine Appearance Turbid H (Clear) Urine Protein 3+ H (Negative) Urine Glucose (UA) 2+ H (Negative) Urine Blood Small H (Negative) Urine Nitrite Positive H (Negative) Ur Leukocyte Esterase Large H (Negative) Urine RBC 67 H (0-5) /hpf Urine WBC >182 H (0-5) /hpf Urine WBC Clumps Many H (None) /hpf Urine Bacteria Many H (None) /hpf Microbiology - Last 24 Hours (Table) 09/09/19 01:20 Blood Culture - Preliminary Blood No Growth after 96 hours Laboratory Results WBC 5.1 k/uL (3.8-10.6) 09/13/19 17:50 RBC 2.75 m/uL (3.80-5.40) L 09/13/19 17:50 Hgb 8.6 gm/dL (11.4-16.0) L 09/13/19 17:50 Hct 26.5 % (34.0-46.0) L 09/13/19 17:50 MCV 96.3 fL (80.0-100.0) 09/13/19 17:50 MCH 31.2 pg (25.0-35.0) 09/13/19 17:50 MCHC 32.4 g/dL (31.0-37.0) 09/13/19 17:50 RDW 16.9 % (11.5-15.5) H 09/13/19 17:50 Plt Count 185 k/uL (150-450) 09/13/19 17:50 Neutrophils % 82 % 09/12/19 07:38 Neutrophils % (Manual) 69 % 09/13/19 17:50 Band Neutrophils % 10 % 09/13/19 17:50 Lymphocytes % 9 % 09/12/19 07:38 Lymphocytes % (Manual) 16 % 09/13/19 17:50 Monocytes % 3 % 09/12/19 07:38 Monocytes % (Manual) 2 % 09/13/19 17:50 Eosinophils % 4 % 09/12/19 07:38 Eosinophils % (Manual) 1 % 09/13/19 17:50 Basophils % 1 % 09/12/19 07:38 Metamyelocytes % 2 % 09/13/19 17:50 Neutrophils # 2.9 k/uL (1.3-7.7) 09/12/19 07:38 Neutrophils # (Manual) 4.00 k/uL (1.3-7.7) 09/13/19 17:50 Lymphocytes # 0.3 k/uL (1.0-4.8) L 09/12/19 07:38 Lymphocytes # (Manual) 0.82 k/uL (1.0-4.8) L 09/13/19 17:50 Monocytes # 0.1 k/uL (0-1.0) 09/12/19 07:38 Monocytes # (Manual) 0.10 k/uL (0-1.0) 09/13/19 17:50 Eosinophils # 0.1 k/uL (0-0.7) 09/12/19 07:38 Eosinophils # (Manual) 0.05 k/uL (0-0.7) 09/13/19 17:50 Basophils # 0.0 k/uL (0-0.2) 09/12/19 07:38 Metamyelocytes # (Man) 0.10 k/uL (0) H 09/13/19 17:50 Nucleated RBCs 0 /100 WBC (0-0) 09/13/19 17:50 Manual Slide Review Performed 09/13/19 17:50 Polychromasia Present 09/12/19 07:38 Hypochromasia Slight 09/13/19 17:50 Anisocytosis Slight 09/13/19 17:50 Macrocytosis Slight 09/12/19 07:38 Rouleaux Present 09/12/19 07:38 PT 11.3 sec (9.0-12.0) 09/08/19 19:04 INR 1.1 (<1.2) 09/08/19 19:04 APTT 29.6 sec (22.0-30.0) 09/08/19 19:04 Sodium 143 mmol/L (137-145) 09/12/19 07:38 Potassium 3.9 mmol/L (3.5-5.1) 09/12/19 19:43 Chloride 118 mmol/L (98-107) H 09/12/19 07:38 Carbon Dioxide 18 mmol/L (22-30) L 09/12/19 07:38 Anion Gap 7 mmol/L 09/12/19 07:38 BUN 11 mg/dL (7-17) 09/12/19 07:38 Creatinine 0.72 mg/dL (0.52-1.04) 09/12/19 07:38 Est GFR (CKD-EPI)AfAm >90 (>60 ml/min/1.73 sqM) 09/12/19 07:38 Est GFR (CKD-EPI)NonAf >90 (>60 ml/min/1.73 sqM) 09/12/19 07:38 Glucose 145 mg/dL (74-99) H 09/12/19 07:38 POC Glucose (mg/dL) 105 mg/dL (75-99) H 09/09/19 01:09 POC Glu Brim Presser ID Carolyne Navarrete 09/09/19 01:09 Lactic Ac Sepsis Rflx Y 09/09/19 05:51 Plasma Lactic Acid Tung 1.4 mmol/L (0.7-2.0) 09/09/19 08:59 Calcium 7.8 mg/dL (8.4-10.2) L 09/12/19 07:38 Magnesium 1.7 mg/dL (1.6-2.3) 09/13/19 07:29 Total Bilirubin 0.6 mg/dL (0.2-1.3) 09/08/19 19:04 AST 31 U/L (14-36) 09/08/19 19:04 ALT 12 U/L (9-52) 09/08/19 19:04 Alkaline Phosphatase 264 U/L (38-126) H 09/08/19 19:04 Troponin I <0.012 ng/mL (0.000-0.034) 09/08/19 19:04 C-Reactive Protein >90.0 mg/L (<10.0) H 09/13/19 17:50 Total Protein 7.1 g/dL (6.3-8.2) 09/08/19 19:04 Albumin 3.1 g/dL (3.5-5.0) L 09/08/19 19:04 Urine Color Yellow 09/13/19 18:25 Urine Appearance Turbid (Clear) H 09/13/19 18:25 Urine pH 6.0 (5.0-8.0) 09/13/19 18:25 Ur Specific [place] 1.010 (1.001-1.035) 09/13/19 18:25 Urine Protein 3+ (Negative) H 09/13/19 18:25 Urine Glucose (UA) 2+ (Negative) H 09/13/19 18:25 Urine Ketones Negative (Negative) 09/13/19 18:25 Urine Blood Small (Negative) H 09/13/19 18:25 Urine Nitrite Positive (Negative) H 09/13/19 18:25 Urine Bilirubin Negative (Negative) 09/13/19 18:25 Urine Urobilinogen <2.0 mg/dL (<2.0) 09/13/19 18:25 Ur Leukocyte Esterase Large (Negative) H 09/13/19 18:25 Urine RBC 67 /hpf (0-5) H 09/13/19 18:25 Urine WBC >182 /hpf (0-5) H 09/13/19 18:25 Urine WBC Clumps Many /hpf (None) H 09/13/19 18:25 Amorphous Sediment Rare /hpf (None) H 09/08/19 23:13 Urine Bacteria Many /hpf (None) H 09/13/19 18:25 Hyaline Casts 3 /lpf (0-2) H 09/08/19 23:13 Urine Mucus Rare /hpf (None) H 09/08/19 23:13 C. difficile (EIA) Intrp Negative (Negative) 09/10/19 23:42 Blood Type A Positive 09/12/19 11:41 Blood Type Confirm A Positive 09/12/19 07:38 Blood Type Recheck No Previous Record 09/12/19 11:41 Bld Type Recheck Status CABO Indicated 09/12/19 11:41 Antibody Screen NEGATIVE 09/12/19 11:41 Spec Expiration Date 09/15/2019 - 2341 09/12/19 11:41 Microbiology 09/09/19 01:20 Blood Blood Culture - Preliminary No Growth after 96 hours Assessment and Plan (1) Metastatic sarcoma Current Visit: Yes Status: Acute Code(s): C79.89 - SECONDARY MALIGNANT NEOPLASM OF OTHER SPECIFIED SITES SNOMED Code(s): 780348474 (2) Pressure ulcer of coccygeal region, stage 4 Narrative/Plan: 58-year-old female who has a history of prior uterine cancer when February of this year at 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 She's undergone radiation therapy and is undergoing chemotherapy. She presents with profound weakening cachexia and inability to care for herself and inability to continue to ambulate. At admission the patient has evidence of dehydration and anemia. She is being followed by her oncologist and transfusion has been requested. With the nurse the pressure ulcerations are evaluated there cleansed with saline therahoney is requested to be placed into the large coccyx ulceration as well as the ulceration and is on the lower thoracic spine and covered. A Costello catheter is requested given her incontinence of urine. Given the location it is unlikely that a wound VAC would be usable at this point in time and there is too much slough at the base of the ulceration to allow back to be used at this time. Antibiotic therapy with Unasyn as requested given what appears to be some secondary infection to this ulceration. An air mattress as requested. Dietary has seen. Discussion with the nursing staff occurs as to the overall plan, the patient appears to be appropriate for palliative care, and would like to get some further information from oncology as to whether or not she is a hospice candidate at this time. Current Visit: Yes Status: Acute Code(s): L89.154 - PRESSURE ULCER OF SACRAL REGION, STAGE 4 SNOMED Code(s): 179448054 (3) Pathologic fracture Current Visit: No Status: Acute Code(s): M84.40XA - PATHOLOGICAL FRACTURE, UNSP SITE, INIT ENCNTR FOR FRACTURE SNOMED Code(s): 641233878 (4) Retroperitoneal lymphadenopathy Current Visit: No Status: Acute Priority: High Code(s): R59.0 - LOCALIZED ENLARGED LYMPH NODES SNOMED Code(s): 405491464 (5) Weight loss Current Visit: No Status: Acute Code(s): R63.4 - ABNORMAL WEIGHT LOSS SNOMED Code(s): 77193378
[2019-09-13 22:42] LABS: Erythrocyte Sedimentation Rate 116 mm/hr (0-20)
[2019-09-13 22:47] VITALS: RESP 16
[2019-09-14] MEDS: MORPHINE SULFATE ER 30 MG TABLET PO SCH ×4 (00:06→23:48)
[2019-09-14] MEDS: AMPICILLIN-SULBACTAM 1.5 GM in SODIUM CHLORIDE 0.9% 50 ML IVPB SCH ×5 (00:07→23:48)
[2019-09-14] MEDS: GABAPENTIN 100 MG CAP PO SCH ×4 (00:07→23:48)
[2019-09-14] MEDS: SODIUM CHLORIDE 0.9% 1,000 ML IV SCH ×3 (00:08→19:33)
[2019-09-14] MEDS: LACTATED RINGERS 1,000 ML IV SCH (05:31)
[2019-09-14 07:11] LABS: Anisocytosis Slight; Basophils # (A) 0.1 k/uL (0-0.2); Basophils % (A) 1 %; Eosinophils # (A) 0.2 k/uL (0-0.7); Eosinophils % (A) 3 %; HCT 25.2 % (34.0-46.0); HGB 8.2 gm/dL (11.4-16.0); Lymphocytes # (A) 0.4 k/uL (1.0-4.8); Lymphocytes % (A) 7 %; MCH 31.4 pg (25.0-35.0); MCHC 32.5 g/dL (31.0-37.0); MCV 96.5 fL (80.0-100.0); Macrocytosis Slight; Mean Platelet Volume 7.9; Monocytes # (A) 0.2 k/uL (0-1.0); Monocytes % (A) 3 %; Neutrophils # (A) 4.9 k/uL (1.3-7.7); Neutrophils % (A) 85 %; Platelet Count 176 k/uL (150-450); RBC 2.61 m/uL (3.80-5.40); WBC 5.8 k/uL (3.8-10.6)
[2019-09-14 07:55] LABS: African American GFR (CKD) >90 (>60 ml/min/1.73 sqM); Anion Gap 4 mmol/L; Blood Urea Nitrogen 9 mg/dL (7-17); Calcium 7.4 mg/dL (8.4-10.2); Carbon Dioxide 20 mmol/L (22-30); Chloride 115 mmol/L (98-107); Glucose 121 mg/dL (74-99); Potassium 3.4 mmol/L (3.5-5.1); Sodium 139 mmol/L (137-145)
[2019-09-14] MEDS ORDERED: Potassium Replacement Protocol 1 EACH MISC MISCELLANE PRN ×2 (08:18→08:21)
[2019-09-14] MEDS: APIXABAN 5 MG TAB PO SCH ×2 (08:31→21:48)
[2019-09-14] MEDS: PANTOPRAZOLE 40 MG TABLET PO SCH (08:32)
[2019-09-14] MEDS ORDERED: POTASSIUM CHLORIDE ER 20 MEQ TAB.ER PO SCH (09:00)
[2019-09-14 09:01] LABS: C Reactive Protein 141.9 mg/L (<10.0)
[2019-09-14] MEDS: POTASSIUM CHLORIDE 20 MEQ in WATER FOR INJECTION 1 100ML.BAG IVPB SCH ×2 (09:53→12:07)
--- NOTE | 2019-09-14 10:05 | P.PN ---
Subjective Progress Note Date: 09/14/19 Principal diagnosis: Sacral ulcer Patient doing well today. She is mildly tachycardic. White blood cell count normal. Urinalysis suggests presence of UTI. She is being followed by infectious disease. Pain in the sacral region improved. Objective - Vital Signs Vital signs: Vital Signs Temp 98.5 F 09/14/19 05:00 Pulse 79 09/14/19 05:00 Resp 16 09/14/19 05:00 BP 105/63 09/14/19 05:00 Pulse Ox 100 09/14/19 05:00 Intake & Output 09/13/19 09/14/19 09/14/19 18:59 06:59 18:59 Intake Total 400 2130 Output Total 700 500 Balance 400 1430 -500 Weight 44.906 kg Intake: Intake, IV Titration 400 1350 Amount Ampicillin-Sulbactam 1.5 150 gm In Sodium Chloride 0.9 % 50 ml @ 100 mls/hr IVPB Q6HR JAYLENE Rx#:[id number] Sodium Chloride 0.9% 1, 400 1200 000 ml @ 100 mls/hr IV . Q10H JAYLENE Rx#:[id number] Oral 780 Output: Urine 700 500 Uretheral (Costello) 700 Other: Voiding Method Bedpan Bedpan Diaper Diaper Incontinent Incontinent # Voids 1 # Bowel Movements 0 - Exam Sacral decubitus ulcer dressing clean and dry, nontender - Labs CBC & Chem 7: 09/14/19 06:42 09/14/19 06:42 Labs: Abnormal Lab Results - Last 24 Hours (Table) 09/13/19 09/13/19 09/13/19 Range/Units 17:50 17:50 18:25 RBC 2.75 L (3.80-5.40) m/uL Hgb 8.6 L (11.4-16.0) gm/dL Hct 26.5 L (34.0-46.0) % RDW 16.9 H (11.5-15.5) % Lymphocytes # (1.0-4.8) k/uL Lymphocytes # (Manual) 0.82 L (1.0-4.8) k/uL Metamyelocytes # (Man) 0.10 H (0) k/uL ESR 116 H (0-20) mm/hr Potassium (3.5-5.1) mmol/L Chloride (98-107) mmol/L Carbon Dioxide (22-30) mmol/L Glucose (74-99) mg/dL Calcium (8.4-10.2) mg/dL C-Reactive Protein >90.0 H (<10.0) mg/L Urine Appearance Turbid H (Clear) Urine Protein 3+ H (Negative) Urine Glucose (UA) 2+ H (Negative) Urine Blood Small H (Negative) Urine Nitrite Positive H (Negative) Ur Leukocyte Esterase Large H (Negative) Urine RBC 67 H (0-5) /hpf Urine WBC >182 H (0-5) /hpf Urine WBC Clumps Many H (None) /hpf Urine Bacteria Many H (None) /hpf 09/14/19 09/14/19 Range/Units 06:42 06:42 RBC 2.61 L (3.80-5.40) m/uL Hgb 8.2 L (11.4-16.0) gm/dL Hct 25.2 L (34.0-46.0) % RDW 17.0 H (11.5-15.5) % Lymphocytes # 0.4 L (1.0-4.8) k/uL Lymphocytes # (Manual) (1.0-4.8) k/uL Metamyelocytes # (Man) (0) k/uL ESR (0-20) mm/hr Potassium 3.4 L (3.5-5.1) mmol/L Chloride 115 H (98-107) mmol/L Carbon Dioxide 20 L (22-30) mmol/L Glucose 121 H (74-99) mg/dL Calcium 7.4 L (8.4-10.2) mg/dL C-Reactive Protein 141.9 H (<10.0) mg/L Urine Appearance (Clear) Urine Protein (Negative) Urine Glucose (UA) (Negative) Urine Blood (Negative) Urine Nitrite (Negative) Ur Leukocyte Esterase (Negative) Urine RBC (0-5) /hpf Urine WBC (0-5) /hpf Urine WBC Clumps (None) /hpf Urine Bacteria (None) /hpf Microbiology - Last 24 Hours (Table) 09/09/19 01:20 Blood Culture - Preliminary Blood No Growth after 120 hours 09/13/19 18:25 Urine Culture - Preliminary Urine,Catheterized Assessment and Plan (1) Pressure ulcer of coccygeal region, stage 4 Narrative/Plan: Continue local wound care. Continue IV antibiotics. Patient will be reevaluated by Dr. Akhtar on Monday. Current Visit: Yes Status: Acute Code(s): L89.154 - PRESSURE ULCER OF SACRAL REGION, STAGE 4 SNOMED Code(s): 084424866
[2019-09-14] MEDS: oxyCODONE-APAP 7.5-325MG 1 EACH TAB PO PRN (14:29)
[2019-09-14] MEDS: PROCHLORPERAZINE 10 MG TAB PO PRN ×2 (14:36→20:51)
[2019-09-14] MEDS: ONDANSETRON 4 MG TAB PO PRN ×2 (16:27→23:48)
[2019-09-14] MEDS: MORPHINE SULFATE 4 MG/ML SYRINGE IV PRN (16:31)
--- NOTE | 2019-09-14 20:16 | PN ---
PROGRESS NOTE DATE OF SERVICE: 09/14/2019 I am covering for Dr. Teodoro Rod. HISTORY OF PRESENT ILLNESS: This 58-year-old woman with a past medical history of multiple medical problems was admitted with severe dehydration. Patient also had acute pain and dehydration. Patient also had significant sacral decubitus which has been debrided. The patient also history of pathological fractures also. PAST MEDICAL HISTORY: Reviewed. REVIEW OF SYSTEM: CARDIOVASCULAR: No angina or palpitations. RESPIRATORY: As mentioned earlier. GI: As mentioned earlier. : No dysuria. CENTRAL NERVOUS SYSTEM: No numbness or weakness. CURRENT MEDICATIONS: Reviewed and include: 1. Unasyn 1.5 g IV q.6h. 2. Eliquis 5 mg p.o. b.i.d. 3. Neurontin 100 mg p.o. q.8h. 4. Lactated Ringer's. 5. Remeron 7.5 q.h.s. 6. Replacement protocols. 7. MS Contin 30 mg p.o. q.h.s. 8. Narcan. 9. Zofran. 10.Percocet. 11.Protonix. 12.Compazine. 13.Senokot-S. PHYSICAL EXAM: Patient is alert, oriented x3, pulse 117. Blood pressure 130/60, respiration 16, temperature 97.7, pulse ox 97% on room air. HEENT is conjunctivae normal. Neck is no JVD. CARDIOVASCULAR: S1, S2 muffled. RESPIRATIONS: Breath sounds diminished in the bases. Bilateral scattered rhonchi and crackles. Expiratory wheezing also heard. ABDOMEN: Soft, nontender. No mass palpable. LEGS: No edema. No swelling. CENTRAL NERVOUS SYSTEM: Diffusely weak. LABS: WBC 5.3, hemoglobin 8.2, sodium 130, potassium 3.4. UA noted. Cultures are negative so far. Sacral decubitus present. Other labs are noted. ASSESSMENT: 1. Dehydration secondary to diminished p.o. intake secondary from chemotherapy and radiation. 2. Acute renal failure prerenal acute tubular necrosis. 3. Hypotension secondary to volume depletion. 4. Lactic acidosis. 5. Bicytopenia. 6. Hypothyroidism. 7. History of uterine cancer with metastasis currently receiving chemotherapy and radiation therapy. 8. L3 pathological fracture history. 9. Moderate protein calorie malnutrition with BMI of 16.5. 10.Generalized weakness. 11.Left hydroureter. 12. lymphadenopathy. 13.Diabetes mellitus type 2. 14.Hypertension. 15.Hyperlipidemia. 16.Osteopenia. 17.Sacral decubitus ulcer Stage III, status post debridement. 18.Hypovolemia. 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 20.Gait dysfunction. RECOMMENDATIONS AND DISCUSSION: In this 58-year-old woman who presented with multiple complex medical issues, we will monitor the patient closely, continue the current medications, management. Symptomatic treatment. MRI showed no acute process. I recommend to continue with the antibiotics. Continue management and symptomatic treatment. Continue the DVT prophylaxis. Continue the pain management. Otherwise also recommend PT/OT evaluation and as well as possible ECF rehab also. Guarded prognosis because of multiple complex medical issues. Further recommendations to follow. MMAJITL / IJN: [id number] / ALFONZO
--- NOTE | 2019-09-14 20:45 | P.PN ---
Subjective Progress Note Date: 09/14/19 The patient is more alert and appropriate in terms of responses. She remains quite weak. She is status post debridement of a large sacral decubiti. No fever/chills/nausea/vomiting at this time. Appetite is still diminished. She states that she is still not able to ambulate Objective - Vital Signs Vital signs: Vital Signs Temp 97.7 F 09/14/19 12:13 Pulse 105 H 09/14/19 15:49 Resp 16 09/14/19 15:49 BP 132/67 09/14/19 12:13 Pulse Ox 97 09/14/19 12:13 Intake & Output 09/14/19 09/14/19 09/15/19 06:59 18:59 05:59 Intake Total 2130 160 Output Total 700 1500 Balance 1430 -1340 Intake: Intake, IV Titration 1350 Amount Ampicillin-Sulbactam 1.5 150 gm In Sodium Chloride 0.9 % 50 ml @ 100 mls/hr IVPB Q6HR [facility] Rx#:[id number] Sodium Chloride 0.9% 1, 1200 000 ml @ 100 mls/hr IV . Q10H JAYLENE Rx#:[id number] Oral 780 160 Output: Urine 700 1500 Uretheral (Costello) 700 Other: Voiding Method Bedpan Bedpan Diaper Diaper Incontinent Incontinent # Voids 1 # Bowel Movements 0 - Constitutional General appearance: Present: no acute distress - EENT Eyes: Present: EOMI ENT: Present: hearing grossly normal, normal oropharynx - Respiratory Respiratory: bilateral: CTA - Cardiovascular Rhythm: regular Heart sounds: normal: S1, S2 - Gastrointestinal General gastrointestinal: Present: normal bowel sounds, soft - Integumentary Integumentary: Present: ulcer (sacrococcygeal) - Neurologic Neurologic: Present: CNII-XII intact - Musculoskeletal Musculoskeletal: Present: generalized weakness, strength equal bilaterally - Psychiatric Psychiatric: Present: A&O x's 3, appropriate affect - Labs CBC & Chem 7: 09/14/19 06:42 09/14/19 17:23 Labs: Abnormal Lab Results - Last 24 Hours (Table) 09/13/19 09/14/19 09/14/19 Range/Units 17:50 06:42 06:42 RBC 2.61 L (3.80-5.40) m/uL Hgb 8.2 L (11.4-16.0) gm/dL Hct 25.2 L (34.0-46.0) % RDW 17.0 H (11.5-15.5) % Lymphocytes # 0.4 L (1.0-4.8) k/uL ESR 116 H (0-20) mm/hr Potassium 3.4 L (3.5-5.1) mmol/L Chloride 115 H (98-107) mmol/L Carbon Dioxide 20 L (22-30) mmol/L Glucose 121 H (74-99) mg/dL Calcium 7.4 L (8.4-10.2) mg/dL C-Reactive Protein 141.9 H (<10.0) mg/L Microbiology - Last 24 Hours (Table) 09/13/19 23:40 Gram Stain - Preliminary Buttock Wound Culture - Preliminary 09/09/19 01:20 Blood Culture - Preliminary Blood No Growth after 120 hours 09/13/19 18:25 Urine Culture - Preliminary Urine,Catheterized Assessment and Plan (1) Hypovolemia Narrative/Plan: due to persistently poor oral intake. Clinically improved with IV hydration. However oral intake still remains diminished Current Visit: Yes Status: Acute Code(s): E86.1 - HYPOVOLEMIA SNOMED Code(s): 32546579 (2) Weakness Narrative/Plan: Is multifactorial, from metastatic malignancy, as well as her sacral decubiti, and possible UTI. There may also be effect from treatment, but the patient has not had chemotherapy for several weeks and has most recently just been on palliative radiation to the lower back. - The patient's debility is still quite marked. MRI was performed to rule out brain metastasis which was negative. His receiving IV hydration and physical therapy, with only slight improvement so far. She is also on antibiotics, and has undergone Debridement of her sacral decubiti. Case was discussed with the admitting service. Physical therapy is continuing and hospital and there is planned for possible LOVE placement post discharge. It was discussed with the patient that her poor performance status could be a significant barrier in her being able to receive any further anticancer treatment. Current Visit: Yes Status: Acute Code(s): R53.1 - WEAKNESS SNOMED Code(s): 04825983 (3) History of uterine cancer Narrative/Plan: The patient's case was discussed with her [employer] oncologist Dr. Bateman. At this time the plan is to still consider active treatment, with combination targeted therapy. This option will depend on her being MSI positive , so as to be able to receive PD1 immunotherapy in combination. I did discuss her very poor performance status with him. It was felt that if her performance status did not improve, or had further decline, then it would be quite difficult to treat her actively. He will be Updated of the patient's clinical course. The above was also discussed with the admitting service. Current Visit: No Status: Acute Priority: High Code(s): Z85.42 - PERSONAL HISTORY OF MALIGNANT NEOPLASM OF OTH PRT UTERUS SNOMED Code(s): 669332044 (4) Acute low back pain Current Visit: No Status: Acute Code(s): M54.5 - LOW BACK PAIN SNOMED Code(s): 885754926
[2019-09-14] MEDS: MIRTAZAPINE 15 MG TAB PO SCH (21:48)
[2019-09-14] MEDS: SENNOSIDES-DOCUSATE SODIUM 1 EACH TAB PO SCH (21:49)
[2019-09-15] MEDS: oxyCODONE-APAP 7.5-325MG 1 EACH TAB PO PRN ×4 (01:19→21:29)
[2019-09-15] MEDS: MORPHINE SULFATE 4 MG/ML SYRINGE IV PRN ×4 (01:19→23:16)
[2019-09-15] MEDS: SODIUM CHLORIDE 0.9% 1,000 ML IV SCH ×2 (05:10→16:46)
[2019-09-15] MEDS: AMPICILLIN-SULBACTAM 1.5 GM in SODIUM CHLORIDE 0.9% 50 ML IVPB SCH ×3 (05:10→17:27)
[2019-09-15] MEDS: MORPHINE SULFATE ER 30 MG TABLET PO SCH ×2 (07:01→16:45)
[2019-09-15] MEDS: APIXABAN 5 MG TAB PO SCH ×2 (07:03→21:27)
[2019-09-15] MEDS: GABAPENTIN 100 MG CAP PO SCH ×2 (07:04→16:45)
[2019-09-15] MEDS: PANTOPRAZOLE 40 MG TABLET PO SCH (07:04)
[2019-09-15] MEDS: PROCHLORPERAZINE 10 MG TAB PO PRN (07:04)
[2019-09-15] MEDS: LACTATED RINGERS 1,000 ML IV SCH (07:11)
[2019-09-15 07:27] LABS: Anisocytosis Slight; Basophils % (A) 0 %; Eosinophils # (A) 0.1 k/uL (0-0.7); Eosinophils % (A) 2 %; HCT 24.4 % (34.0-46.0); HGB 7.9 gm/dL (11.4-16.0); Hypochromasia Marked; Lymphocytes # (A) 0.6 k/uL (1.0-4.8); Lymphocytes % (A) 9 %; MCH 32.4 pg (25.0-35.0); MCHC 32.4 g/dL (31.0-37.0); MCV 100.1 fL (80.0-100.0); Macrocytosis Slight; Mean Platelet Volume 7.4; Monocytes # (A) 0.2 k/uL (0-1.0); Monocytes % (A) 3 %; Neutrophils # (A) 5.1 k/uL (1.3-7.7); Neutrophils % (A) 84 %; Platelet Count 163 k/uL (150-450); RBC 2.44 m/uL (3.80-5.40); RDW 16.6 % (11.5-15.5)
[2019-09-15 07:47] LABS: African American GFR (CKD) >90 (>60 ml/min/1.73 sqM); Anion Gap 6 mmol/L; Blood Urea Nitrogen 9 mg/dL (7-17); Calcium 7.7 mg/dL (8.4-10.2); Carbon Dioxide 18 mmol/L (22-30); Chloride 113 mmol/L (98-107); Glucose 95 mg/dL (74-99); Potassium 3.9 mmol/L (3.5-5.1); Sodium 137 mmol/L (137-145)
--- NOTE | 2019-09-15 12:33 | P.PN ---
Subjective Progress Note Date: 09/15/19 The patient remains weak overall. She feels that her appetite is slowly improving but per nursing she is only tolerating bites. She states that she has not gotten out of bed, but is willing to try working with physical therapy to improve her mobility. No fever/chills/nausea/vomiting. Pain is reasonably controlled. Objective - Vital Signs Vital signs: Vital Signs Temp 98.0 F 09/15/19 11:48 Pulse 105 H 09/15/19 11:48 Resp 16 09/15/19 11:48 BP 100/69 09/15/19 11:48 Pulse Ox 99 09/15/19 11:48 Intake & Output 09/14/19 09/15/19 09/15/19 19:59 06:59 18:59 Intake Total Output Total 1000 Balance -1000 Intake: Intake, IV Titration Amount Ampicillin-Sulbactam 1.5 gm In Sodium Chloride 0.9 % 50 ml @ 100 mls/hr IVPB Q6HR [facility] Rx#:[id number] Sodium Chloride 0.9% 1, 000 ml @ 100 mls/hr IV . Q10H JAYLENE Rx#:[id number] Oral Output: Urine 1000 Other: Voiding Method # Voids # Bowel Movements - Constitutional General appearance: Present: no acute distress - EENT Eyes: Present: EOMI ENT: Present: hearing grossly normal, normal oropharynx - Respiratory Respiratory: bilateral: CTA - Cardiovascular Rhythm: regular Heart sounds: normal: S1, S2 - Gastrointestinal General gastrointestinal: Present: normal bowel sounds, soft - Integumentary Integumentary: Present: normal - Neurologic Neurologic: Present: CNII-XII intact - Musculoskeletal Musculoskeletal: Present: left sided weakness - Psychiatric Psychiatric: Present: A&O x's 3, appropriate affect - Labs CBC & Chem 7: 09/15/19 07:12 09/15/19 07:12 Labs: Abnormal Lab Results - Last 24 Hours (Table) 09/15/19 09/15/19 Range/Units 07:12 07:12 RBC 2.44 L (3.80-5.40) m/uL Hgb 7.9 L (11.4-16.0) gm/dL Hct 24.4 L (34.0-46.0) % MCV 100.1 H (80.0-100.0) fL RDW 16.6 H (11.5-15.5) % Lymphocytes # 0.6 L (1.0-4.8) k/uL Chloride 113 H (98-107) mmol/L Carbon Dioxide 18 L (22-30) mmol/L Calcium 7.7 L (8.4-10.2) mg/dL Microbiology - Last 24 Hours (Table) 09/13/19 23:40 Gram Stain - Preliminary Buttock Wound Culture - Preliminary Gram Neg Bacilli Gram Neg Bacilli#2 Group D Enterococcus 09/09/19 01:20 Blood Culture - Final Blood No Growth after 144 hours 09/13/19 18:25 Urine Culture - Preliminary Urine,Catheterized Gram Neg Bacilli Assessment and Plan (1) Hypovolemia Narrative/Plan: This appears to have been corrected clinically, and by labs with ongoing IV hydration. However oral intake still remains poor Current Visit: Yes Status: Acute Code(s): E86.1 - HYPOVOLEMIA SNOMED Code(s): 81424630 (2) Weakness Narrative/Plan: This is still persistent, generalize, and related to the left lower extremity. The patient states that she feels somewhat stronger and is willing to work with physical therapy. 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 The case was discussed in detail with her on the phone, at the patient's bedside. My assessment of her situation, as well as my discussion with Dr. Bateman was discussed with him. He was advised that her malignancy, at the time of metastatic recurrence, generally does not have a good response rate or duration of response even to aggressive chemotherapy. Dr. Bateman is planning on a non-chemotherapy combination regimen, if the patient has appropriate markers. The patient's performance status, even prior to addition was not felt to be sufficient enough to permit progressive conventional chemotherapy. If the patient is not a candidate for the targeted combination regimen, then her treatment options would be very limited, and thus also her prognosis. Even if she is a candidate, her current performance status is very poor and unlikely to permit active treatment. Therefore her performance status has to improve significantly for her to resume treatment. Unfortunately, at this time despite aggressive supportive care we have not seen much progress the patient is slightly improved. Therefore it is felt that her prognosis, going forward is quite guarded. Continue supportive treatment. Add Megace for appetite support The and patient were also advised that I will keep Dr. Bateman updated of her situation periodically Physical therapy Current Visit: No Status: Acute Priority: High Code(s): Z85.42 - PERSONAL HISTORY OF MALIGNANT NEOPLASM OF OTH PRT UTERUS SNOMED Code(s): 498661020 (4) Acute low back pain Narrative/Plan: This is controlled at this time. However left lower extremity weakness persists. The patient has not completed her prescribed radiation course. Current Visit: No Status: Acute Code(s): M54.5 - LOW BACK PAIN SNOMED Cod e(s): 383898923
[2019-09-15] MEDS: MEGESTROL 400 MG/10 ML CUP PO SCH (18:54)
--- NOTE | 2019-09-15 19:22 | PN ---
PROGRESS NOTE I am covering for Dr. Rod. DATE OF SERVICE: 09/15/2019. This 58-year-old woman was admitted with dehydration, also had acute renal failure. The patient also has metastatic uterine sarcoma. Dr. Blair has discussed the case with Dr. Ward and the patient's functional status is concerning. Supportive measures recommended and please refer to Dr. Blair's detailed notes for further details. No chest pain. No palpitation. PHYSICAL EXAM: Alert and oriented x3. Pulse 105. Blood pressure 100/60, respirations 16, temperature 98 degrees, pulse ox 99% on room air. HEENT are conjunctivae normal. Neck: No JVD. CARDIOVASCULAR: S1, S2 muffled. RESPIRATION: Breath sounds diminished in the bases. A few scattered rhonchi and crackles. Abdomen soft, nontender. Nervous System: No focal deficits. LABS: WBC 6, hemoglobin 7.9, sodium 137, potassium 3.9. Otherwise, calcium is 7.7. Other labs are noted. UA noted. ASSESSMENT: 1. Dehydration secondary to diminished p.o. intake with generalized weakness. 2. Acute renal failure, prerenal acute tubular necrosis from dehydration. 3. Hypotension secondary to volume depletion. 4. Lactic acidosis. 5. Bicytopenia. 6. Hypothyroidism. 7. 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 8. L3 pathological fracture history. 9. Moderate to severe protein calorie malnutrition with BMI of 16.5. 10.Generalized weakness. 11.Left hydroureter. 12.Lymphadenopathy. 13.Diabetes mellitus type 2. 14.Hypertension. 15.Hyperlipidemia. 16.Osteopenia. 17.Sacral decubitus ulcer stage III, status post debridement. 18.Hypovolemia. 19.Anemia, chronic, secondary to malignancy. 20.Gait dysfunction. RECOMMENDATIONS AND DISCUSSION: Recommend to continue current medications, continue to monitor, symptomatic treatment. Otherwise, at this time, I recommend continue with current medications and improve the general condition. Prognosis guarded because of multiple complex medical issues as mentioned earlier. Please refer to Dr. Blair's detailed notes for recommendations and closely monitor. Dr. Teodoro Rod will follow. Discussed with at the bedside. Further recommendations to follow. MMODL / IJN: [id number] /
[2019-09-15] MEDS: SENNOSIDES-DOCUSATE SODIUM 1 EACH TAB PO SCH (21:27)
[2019-09-15] MEDS: MIRTAZAPINE 15 MG TAB PO SCH (21:27)
[2019-09-16] MEDS: AMPICILLIN-SULBACTAM 1.5 GM in SODIUM CHLORIDE 0.9% 50 ML IVPB SCH ×4 (00:09→16:43)
[2019-09-16] MEDS: MORPHINE SULFATE ER 30 MG TABLET PO SCH ×3 (00:10→16:45)
[2019-09-16] MEDS: GABAPENTIN 100 MG CAP PO SCH ×3 (00:10→16:45)
[2019-09-16] MEDS: SODIUM CHLORIDE 0.9% 1,000 ML IV SCH ×2 (00:13→11:02)
[2019-09-16 05:41] VITALS: TEMP 98.4
[2019-09-16] MEDS: LACTATED RINGERS 1,000 ML IV SCH (07:31)
[2019-09-16] MEDS: APIXABAN 5 MG TAB PO SCH (08:03)
[2019-09-16] MEDS: MEGESTROL 400 MG/10 ML CUP PO SCH (08:04)
[2019-09-16] MEDS ORDERED: PANTOPRAZOLE 40 MG/10 ML VIAL IVP SCH (09:00)
[2019-09-16] MEDS: MORPHINE SULFATE 4 MG/ML SYRINGE IV PRN (11:00)
[2019-09-16 11:19] LABS: Anisocytosis Slight; Basophils % (A) 1 %; Eosinophils # (A) 0.1 k/uL (0-0.7); Eosinophils % (A) 2 %; HCT 27.1 % (34.0-46.0); HGB 8.6 gm/dL (11.4-16.0); Hypochromasia Slight; Lymphocytes # (A) 0.6 k/uL (1.0-4.8); Lymphocytes % (A) 8 %; MCH 31.1 pg (25.0-35.0); MCHC 31.6 g/dL (31.0-37.0); MCV 98.4 fL (80.0-100.0); Macrocytosis Slight; Mean Platelet Volume 8.3; Monocytes # (A) 0.2 k/uL (0-1.0); Monocytes % (A) 3 %; Neutrophils % (A) 85 %; Platelet Count 213 k/uL (150-450); RBC 2.75 m/uL (3.80-5.40); RDW 16.5 % (11.5-15.5); WBC 7.1 k/uL (3.8-10.6)
[2019-09-16 11:30] LABS: African American GFR (CKD) >90 (>60 ml/min/1.73 sqM); Anion Gap 9 mmol/L; Blood Urea Nitrogen 8 mg/dL (7-17); Calcium 7.9 mg/dL (8.4-10.2); Carbon Dioxide 18 mmol/L (22-30); Chloride 108 mmol/L (98-107); Glucose 116 mg/dL (74-99); Potassium 3.7 mmol/L (3.5-5.1); Sodium 135 mmol/L (137-145)
[2019-09-16 11:33] VITALS: BP 116/78; PULSE 115
--- NOTE | 2019-09-16 12:09 | P.DS ---
Providers Date of admission: 09/09/19 13:24 Expected date of discharge: 09/16/19 Attending physician: Teodoro Rod Consults: 09/09/19 10:03 Consult Physician Routine Consulting Provider: Charles Blair Consult Reason/Comments: HX of Uterine cancer, chemo/radiation induced dehydration, leukopenia,lacti Do you want consulting provider notified?: Yes 09/10/19 14:25 Consult Physician Routine Consulting Provider: Colin Akhtar Consult Reason/Comments: sacral ulcer, debridement Do you want consulting provider notified?: Yes 09/12/19 13:49 Consult Physician Routine Consulting Provider: Levi Timmons Consult Reason/Comments: wound care Do you want consulting provider notified?: Yes Primary care physician: Teodoro Rod Hospital Course: Final Diagnoses: (1) Dehydration, secondary to decreased oral intake from chemotherapy and radiation with accompanying generalized weakness (2) acute renal failure from the above,ATN (3) hypotension secondary to volume depletion,#1 (4) lactic acidosis (5) bicytopenia (6) hypothyroidism (7) history of uterine cancer with metastasis of spine, currently receiving chemotherapy, radiation outpatient (8) L3 pathological compression fracture, history of. (9) moderate protein calorie malnutrition, BMI 16.5, albumin 3.1 (10) generalized weakness, multifactorial, secondary to all the above (11) left hydroureter (12) retroperitoneal lymphadenopathy (13) diabetes mellitus II (14) hypertension (15) hyperlipidemia (16) osteopenia (17) sacral pressure ulcer-necrotic, stage IV ,status post debridement; small superficial lumbar spine decubitus ulcer, small unstageable right heel ulcer unstageable, present on admission (18) anemia, chronic, secondary to malignancy Hospital course:This is a 58-year-old female with history of uterine cancer with metastasis to bones, possibly kidneys and liver as per spouse, follows with Dr. 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 Valdez for radiation oncology. Currently finishing up second week of 7 chemotherapy, 5 days a week, reports post radiation. Presented to the ER with worsening generalized weakness. Reports "not eating right" for greater than a week. Denies nausea or vomiting. Denies diarrhea. Denies abdominal pain. Reports difficulty performing ADLs including walking, complains of intermittent pain in bilateral thighs-anterior. Anticoagulated on Eliquis for PE. Denies chest pain, palpitations or shortness of breath. EKG reports sinus tachycardia, possible age undetermined inferior infarct. Troponin less than 0.012. Occasional dry nonproductive cough. chest x-ray nonacute.Denies currently any pain at this time. Afebrile, WBC 2.6. Neutrophils 69. Hemoglobin 11.8. Lactic acid on admission 5.5, received 2 L of fluid boluses currently down to 1.4. 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 UA negative, alk phos 264. BUN 27 creatinine 1.13. Calcium 10.4. 09/10/2019 hemoglobin 8.3, WBC 2.5, platelets 221. No signs/symptoms of bleeding. Necrotic decubitus ulcers, present on admission-surgery consulted. Afebrile. Borderline hypotension. Maintained on IV fluid hydration. Denies pain. Denies chest pain, palpitations or shortness of breath. Potassium 3.2. 09/11/2019 feeling better today, tested negative for C. difficile colitis, fecal management system in place. Evaluated by surgery and scheduled for debridement of sacral pressure ulcer, tomorrow. Hemoglobin 9, WBC 2.5, platelets 229. Potassium supplemented yesterday, currently 3.7. Denies pain. Denies lightheadedness, dizziness or focal deficits. Maintained om IV fluid hydration. Patient evaluated by physical therapy, unable to ambulate secondary to bilateral lower extremity weakness. Patient has challenges with bed mobility, strength, balance, transfers, endurance, ambulation. Recommending subacute rehab at discharge. Discussed case with Dr. Blair, oncology. Patient may be palliative appropriate-Dr. Blair will discuss case with patients own Oncologist, Dr. Bateman. Diet intake fluctuates from 0-50%. Afebrile, blood cultures no growth at 48 hours. 09/12/2019 NPO, scheduled for debridement today. Afebrile, WBC 3.5, hemoglobin 7.7, platelets 186, potassium 3.3, magnesium 1.8. 09/13/2019 status post sacral ulcer debridement, postop day #1. Tolerated procedure well. Complains of tenderness. Afebrile, blood cultures negative.Brain MRI reporting no acute intracranial process with no enhancing masses, degenerative changes and nonspecific white matter changes. Maintained on gentle IV fluid hydration. Infectious disease consulted for wound care management. Close monitoring of electrolytes, hemoglobin with repeat labs ordered for a.m. Dr. Blair discussed with patient's oncologist Dr. Bateman, potential immunotherapy; patient currently extremely weak, would benefit from subacute rehab at discharge. Prognosis guarded given multiple complex medical problems. Patient is being discharged today to [facility] subacute rehab in a stable condition with guarded prognosis. - Exam GENERAL: Alert and oriented 3, no acute distress RESPIRATORY: Respiratory effort unlabored .Clear to auscultation. No wheezes, rales, or rhonchi. CARDIOVASCULAR: Regular rate and rhythm. S1 and S2 noted. No systolic or diastolic murmur auscultated. GASTROINTESTINAL: No distention noted. Abdomen soft and round. Normal active bowel sounds auscultated x 4 quadrants. No pain or tenderness noted upon palpation. INTEGUMENTARY: Profound muscle wasting. sacral dressing clean dry and intact, small lumbar spine superficial decubitus ulcer-refer to pictures in chart by nursing. EXTREMITIES: 2+ peripheral pulses. No evidence of peripheral edema. No calf tenderness noted. right small unstageable necrotic heel ulcer /wearing boot NEUROLOGIC: No focal deficits The impression and plan of care has been dictated as directed. : I performed a history and examination of this patient, discussed the same with the dictator. I agree with the dictator's note ,documented as a scribe. Any additional findings or plans will be noted. Patient Condition at Discharge: Stable Plan - Discharge Summary Discharge Rx Participant: No New Discharge Prescriptions: New Megestrol [Megace] 400 mg PO DAILY cup Continue Sennosides-Docusate Sodium [Senokot-S] 2 tab PO HS Prochlorperazine [Compazine] 10 mg PO Q6H Apixaban [Eliquis] 5 mg PO BID Mirtazapine 7.5 mg PO HS Ondansetron [Zofran] 8 mg PO Q8HR PRN PRN Reason: Nausea Morphine Sulfate ER [Ms Contin] 30 mg PO Q8H #9 tab Gabapentin [Neurontin] 100 mg PO Q8H #9 cap oxyCODONE HCL/ACETAMINOPHEN [Percocet 7.5-325 mg] 1 tab PO Q4HR PRN #18 tab PRN Reason: Pain Discharge Medication List Apixaban [Eliquis] 5 mg PO BID 09/08/19 [History] Mirtazapine 7.5 mg PO HS 09/08/19 [History] Prochlorperazine [Compazine] 10 mg PO Q6H 09/08/19 [History] Sennosides-Docusate Sodium [Senokot-S] 2 tab PO HS 09/08/19 [History] Ondansetron [Zofran] 8 mg PO Q8HR PRN 09/09/19 [History] Gabapentin [Neurontin] 100 mg PO Q8H #9 cap 09/16/19 [Rx] Megestrol [Megace] 400 mg PO DAILY cup 09/16/19 [Rx] Morphine Sulfate ER [Ms Contin] 30 mg PO Q8H #9 tab 09/16/19 [Rx] oxyCODONE HCL/ACETAMINOPHEN [Percocet 7.5-325 mg] 1 tab PO Q4HR PRN #18 tab [Rx] Follow up Appointment(s)/Referral(s): Teodoro oRd DO [Primary Care Provider] - 1 Week (After DC from subacute rehab) Dr. Fransico Oncology [Other] - 1 Week Activity/Diet/Wound Care/Special Instructions: Medi PH antibiotics/wound care as per ID. Pending oncology clearance. Diet:Regular Activity: as tolerated CBC,BMP in 3 days Discharge Disposition: TRANSFER TO SNF/ECF
[2019-09-16] MEDS: oxyCODONE-APAP 7.5-325MG 1 EACH TAB PO PRN (13:06)
--- NOTE | 2019-09-16 13:20 | P.PN ---
Subjective Progress Note Date: 09/16/19 CHIEF COMPLAINT: Sacral decubitus ulcer HISTORY OF PRESENT ILLNESS: Patient is status post debridement of sacral decubitus ulcer with Dr. Akhtar. Patient reports her pain is tolerable. PHYSICAL EXAM: VITAL SIGNS: Reviewed. GENERAL: Well-developed in no acute distress. HEENT: No sclera icterus. Extraocular movements grossly intact. Moist buccal mucosa. Head is atraumatic, normocephalic. ABDOMEN: Soft. Nondistended. Nontender. NEUROLOGIC: Alert and oriented. Cranial nerves II through XII grossly intact. SKIN: Dressing to sacrum clean dry intact. ASSESSMENT: 1. Sacral decubitus ulcer, s/p excisional debridement PLAN: Infectious disease on consult for wound care No further surgical intervention recommended at this time We will sign off. Please re-consult if needed. Nurse practitioner note has been reviewed by physician. Signing provider agrees with the documented findings, assessment, and plan of care. Objective - Vital Signs Vital signs: Vital Signs Temp 98.4 F 09/16/19 11:10 Pulse 115 H 09/16/19 11:10 Resp 16 09/16/19 11:10 BP 116/78 09/16/19 11:10 Pulse Ox 91 L 09/16/19 12:35 Intake & Output 09/15/19 09/16/19 09/16/19 18:59 06:59 18:59 Intake Total 160 1100 Output Total 1400 900 650 Balance -1240 200 -650 Intake: Intake, IV Titration 1100 Amount Ampicillin-Sulbactam 1.5 100 gm In Sodium Chloride 0.9 % 50 ml @ 100 mls/hr IVPB Q6HR JAYLENE Rx#:[id number] Sodium Chloride 0.9% 1, 1000 000 ml @ 100 mls/hr IV . Q10H JAYLENE Rx#:[id number] Oral 160 Output: Urine 1400 900 650 Uretheral (Costello) 700 Other: Voiding Method Bedpan Bedpan Bedpan Diaper Diaper Diaper Incontinent Incontinent Incontinent # Voids 1 1 - Labs CBC & Chem 7: 09/16/19 07:45 09/16/19 07:45 Labs: Abnormal Lab Results - Last 24 Hours (Table) 09/16/19 09/16/19 Range/Units 07:45 07:45 RBC 2.75 L (3.80-5.40) m/uL Hgb 8.6 L (11.4-16.0) gm/dL Hct 27.1 L (34.0-46.0) % RDW 16.5 H (11.5-15.5) % Lymphocytes # 0.6 L (1.0-4.8) k/uL Sodium 135 L (137-145) mmol/L Chloride 108 H (98-107) mmol/L Carbon Dioxide 18 L (22-30) mmol/L Glucose 116 H (74-99) mg/dL Calcium 7.9 L (8.4-10.2) mg/dL Microbiology - Last 24 Hours (Table) 09/13/19 18:25 Urine Culture - Final Urine,Catheterized Escherichia coli 09/13/19 23:40 Gram Stain - Preliminary Buttock Wound Culture - Preliminary Gram Neg Bacilli Gram Neg Bacilli#2 Group D Enterococcus
== END 2019-09-16 18:15 | DRG 622 ==
LOC: EC 17:55 → 3NMEDONC 23:46 → OBSVTOIN 09-09 13:24 → 3NMEDONC 09-10 20:07
PROVIDERS: ADMIT Family Medicine; ATTEND Family Medicine
PROC: 0KBN0ZZ Excision of Right Hip Muscle, Open Approach (ICD-10-PCS; 2019-09-12)
PROC: 0KBP0ZZ Excision of Left Hip Muscle, Open Approach (ICD-10-PCS; principal; 2019-09-12 07:30)
DX: E86.0 Dehydration (principal); L89.154 Pressure ulcer of sacral region, stage 4; L89.153 Pressure ulcer of sacral region, stage 3; E43 Unspecified severe protein-calorie malnutrition; N17.0 Acute kidney failure with tubular necrosis; C49.9 Malignant neoplasm of connective and soft tissue, unspecified; C79.51 Secondary malignant neoplasm of bone; N13.4 Hydroureter; R64 Cachexia; Z68.1 Body mass index [BMI] 19.9 or less, adult; T45.1X5A Adverse effect of antineoplastic and immunosuppressive drugs, initial encounter; T66.XXXA Radiation sickness, unspecified, initial encounter; C55 Malignant neoplasm of uterus, part unspecified; D63.0 Anemia in neoplastic disease; D70.9 Neutropenia, unspecified; E03.9 Hypothyroidism, unspecified; E11.621 Type 2 diabetes mellitus with foot ulcer; L89.610 Pressure ulcer of right heel, unstageable; L89.109 Pressure ulcer of unspecified part of back, unspecified stage; E78.5 Hyperlipidemia, unspecified; E86.1 Hypovolemia; E87.2 Acidosis; E87.6 Hypokalemia; I10 Essential (primary) hypertension; M48.56XD Collapsed vertebra, not elsewhere classified, lumbar region, subsequent encounter for fracture with routine healing; M85.80 Other specified disorders of bone density and structure, unspecified site; R32 Unspecified urinary incontinence; Z79.01 Long term (current) use of anticoagulants; Z82.49 Family history of ischemic heart disease and other diseases of the circulatory system; Z85.43 Personal history of malignant neoplasm of ovary; Z86.711 Personal history of pulmonary embolism; Z92.21 Personal history of antineoplastic chemotherapy; Z92.3 Personal history of irradiation; R59.0 Localized enlarged lymph nodes; G89.3 Neoplasm related pain (acute) (chronic); Z91.040 Latex allergy status; Z79.899 Other long term (current) drug therapy; Z82.61 Family history of arthritis
CPT/HCPCS: 36415; 70553; 71046; 80048; 80053; 81001; 83605; 83735; 84132; 84484; 85025; 85027; 85610; 85652; 85730; 86140; 86850; 86900; 86901; 87040; 87070; 87077; 87086; 87186; 87205; 87324; 88304; 93005; 94760; 96360; 96361; 99285

== ENCOUNTER 2019-09-23 17:58 | Inpatient (IN) | payer OTHER ==
[2019-09-23] MEDS ORDERED: SODIUM CHLORIDE 0.9% 1,000 ML IV STA ×2 (18:09)
[2019-09-23] MEDS ORDERED: SODIUM CHLORIDE 0.9% 500 ML 500 ML IV STA (18:09)
--- NOTE | 2019-09-23 18:12 | ED ---
Weakness HPI - General Stated complaint: Dehydrated Time Seen by Provider: 09/23/19 18:00 Source: patient, EMS, RN notes reviewed, old records reviewed Mode of arrival: EMS - History of Present Illness Initial comments: This is a 4-year-old female who presents from a custodial by EMS with complaints of weakness and decreased oral intake for the past several days. She does have a history of stage IV uterine cancer did decrease food and fluid intake for the past several days she demonstrated confusion. Did have a glucose 174 and Accu-Chek and a pulse ox of 92% on room air. No reports of nausea vomiting diarrhea constipation no other modifying factors at this time. MD Complaint: generalized weakness - Related Data Home Medications Medication Instructions Recorded Confirmed Apixaban [Eliquis] 5 mg PO BID 09/08/19 09/23/19 Mirtazapine 7.5 mg PO HS 09/08/19 09/23/19 Prochlorperazine [Compazine] 10 mg PO Q6H 09/08/19 09/23/19 Sennosides-Docusate Sodium 2 tab PO HS 09/08/19 09/23/19 [Senokot-S] Gabapentin [Neurontin] 100 mg PO TID@0500,1300,2100 09/23/19 09/23/19 Megestrol [Megace] 400 mg PO DAILY@0800 09/23/19 09/23/19 Morphine Sulfate ER [Ms Contin] 30 mg PO Q6H 09/23/19 09/23/19 Twocal Hn Liquid 120 mg PO TID 09/23/19 09/23/19 oxyCODONE HCL/ACETAMINOPHEN 1 tab PO Q4H PRN 09/23/19 09/23/19 [Percocet 7.5-325 mg] Allergies Allergy/AdvReac Type Severity Reaction Status Date / Time latex Allergy Rash/Hives Verified 09/23/19 18:37 Review of Systems ROS Statement: Those systems with pertinent positive or pertinent negative responses have been documented in the HPI. ROS Other: All systems not noted in ROS Statement are negative. Past Medical History Past Medical History: Cancer, Diabetes Mellitus, Hyperlipidemia, Hypertension, Thyroid Disorder Additional Past Medical History / Comment(s): 2012 Uterine cancer with hysterectomy and radiation, NIDDM-loss, neuropathy bilateral feet, hypothyroid, back cancer rad M-[facility] n [place], [facility] due to Radaiation History of Any Multi-Drug Resistant Organisms: None Reported Past Surgical History: Section, Hysterectomy, Orthopedic Surgery Additional Past Surgical History / Comment(s): x 2, L foot bone spur Past Anesthesia/Blood Transfusion Reactions: Motion Sickness, Postoperative Nausea & Vomiting (PONV) Past Psychological History: No Psychological Hx Reported Additional Psychological History / Comment(s): Pt resides with her spouse and family and friends assist her. She uses a walker at home. 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 Smoking Status: Never smoker Past Alcohol Use History: None Reported Past Drug Use History: None Reported - Past Family History Father Family Medical History: Myocardial Infarction (AZ) Additional Family Medical History / Comment(s): Father had a AZ at the age of 85 yrs. Mother Family Medical History: Osteoarthritis (OA), Skin Disorder, Thyroid Disorder Additional Family Medical History / Comment(s): Psoriasis. General Exam - General Exam Comments Initial Comments: Is a well-developed asthenic appearing female who is awake alert but lethargic General appearance: alert, lethargic Head exam: Present: atraumatic, normocephalic, normal inspection Eye exam: Present: normal appearance, PERRL, EOMI. Absent: scleral icterus, conjunctival injection, periorbital swelling ENT exam: Present: mucous membranes dry Neck exam: Present: normal inspection. Absent: tenderness, meningismus, lymphadenopathy Respiratory exam: Present: normal lung sounds bilaterally. Absent: respiratory distress, wheezes, rales, rhonchi, stridor Cardiovascular Exam: Present: regular rate, normal rhythm, normal heart sounds. Absent: systolic murmur, diastolic murmur, rubs, gallop, clicks GI/Abdominal exam: Present: soft, normal bowel sounds. Absent: distended, tenderness, guarding, rebound, rigid, bruit, pulsatile mass Rectal exam: Present: deferred Extremities exam: Present: normal inspection, full ROM, normal capillary refill. Absent: tenderness, pedal edema, joint swelling, calf tenderness Back exam: Present: normal inspection Neurological exam: Present: alert, oriented X3, CN II-XII intact Psychiatric exam: Present: normal affect, normal mood Skin exam: Present: warm, dry, intact, normal color. Absent: rash Course Vital Signs 09/23/19 18:05 Temperature 97.4 F L Pulse Rate 104 H Respiratory 20 Rate Blood Pressure 90/63 Medical Decision Making - Medical Decision Making I did discuss findings the patient she does present with a history of stage IV ovarian cancer and weakness she does have evidence of a UTI as well as a left lower lobe pneumonia. Patient will be admitted case is discussed with Dr. Rod patient be started on IV antibiotics. - Lab Data Result diagrams: 09/23/19 18:55 Lab Results 09/23/19 09/23/19 09/23/19 Range/Units 18:55 18:55 18:55 WBC 6.7 (3.8-10.6) k/uL RBC 2.32 L (3.80-5.40) m/uL Hgb 7.3 L (11.4-16.0) gm/dL Hct 22.5 L (34.0-46.0) % MCV 97.0 (80.0-100.0) fL MCH 31.4 (25.0-35.0) pg MCHC 32.4 (31.0-37.0) g/dL RDW 16.9 H (11.5-15.5) % Plt Count 391 (150-450) k/uL Neutrophils % 83 % Lymphocytes % 6 % Monocytes % 5 % Eosinophils % 3 % Basophils % 1 % Neutrophils # 5.5 (1.3-7.7) k/uL Lymphocytes # 0.4 L (1.0-4.8) k/uL Monocytes # 0.4 (0-1.0) k/uL Eosinophils # 0.2 (0-0.7) k/uL Basophils # 0.0 (0-0.2) k/uL Hypochromasia Slight Anisocytosis Slight Macrocytosis Slight Troponin I <0.012 (0.000-0.034) ng/mL Urine Color Yellow Urine Appearance Turbid H (Clear) Urine pH 7.0 (5.0-8.0) Ur Specific [place] 1.014 (1.001-1.035) Urine Protein 1+ H (Negative) Urine Glucose (UA) Negative (Negative) Urine Ketones Negative (Negative) Urine Blood Small H (Negative) Urine Nitrite Positive H (Negative) Urine Bilirubin Negative (Negative) Urine Urobilinogen <2.0 (<2.0) mg/dL Ur Leukocyte Esterase Large H (Negative) Urine RBC 32 H (0-5) /hpf Urine WBC >182 H (0-5) /hpf Urine WBC Clumps Many H (None) /hpf Ur Squamous Epith Cells 2 (0-4) /hpf Urine Bacteria Rare H (None) /hpf Urine Mucus Rare H (None) /hpf Urine Yeast (Budding) Many H (None) /hpf - Radiology Data Radiology results: report reviewed (I did review the imaging and report or is evidence of a new left lower lobe infiltrate with effusion.), image reviewed Disposition Clinical Impression: Left lower lobe pneumonia, Urinary tract infection, Ovarian ca, Dehydration, Failure to thrive Disposition: ADMITTED IP TO THIS [facility] Condition: Fair Referrals: Teodoro Rod DO [Primary Care Provider] - 1-2 days
[2019-09-23 19:33] LABS: Anisocytosis Slight; Basophils % (A) 1 %; Eosinophils # (A) 0.2 k/uL (0-0.7); Eosinophils % (A) 3 %; HCT 22.5 % (34.0-46.0); HGB 7.3 gm/dL (11.4-16.0); Hypochromasia Slight; Lymphocytes # (A) 0.4 k/uL (1.0-4.8); Lymphocytes % (A) 6 %; MCH 31.4 pg (25.0-35.0); MCHC 32.4 g/dL (31.0-37.0); Macrocytosis Slight; Mean Platelet Volume 7.3; Monocytes # (A) 0.4 k/uL (0-1.0); Monocytes % (A) 5 %; Neutrophils # (A) 5.5 k/uL (1.3-7.7); Neutrophils % (A) 83 %; Platelet Count 391 k/uL (150-450); RBC 2.32 m/uL (3.80-5.40); RDW 16.9 % (11.5-15.5); WBC 6.7 k/uL (3.8-10.6)
[2019-09-23 19:42] LABS: Appearance,Urine Turbid (Clear); Bacteria,Urine Rare /hpf; Bilirubin,Urine Negative (Negative); Blood,Urine Small (Negative); Budding Yeast,Urine Many /hpf; Color,Urine Yellow; Glucose,Urine (UA) Negative (Negative); Ketones,Urine Negative (Negative); Leukocyte Esterase,Urine Large (Negative); Mucus,Urine Rare /hpf; Nitrite,Urine Positive (Negative); Protein,Urine 1+ (Negative); RBC,Urine 32 /hpf (0-5); Specific Gravity,Urine 1.014 (1.001-1.035); Squamous Epithelial Cell,Urine 2 /hpf (0-4); Urobilinogen,Urine <2.0 mg/dL (<2.0); WBC,Urine >182 /hpf (0-5)
--- NOTE | 2019-09-23 19:45 | XR ---
EXAMINATION TYPE: XR chest 2V DATE OF EXAM: 09/23/2019 COMPARISON: 09/08/2019 HISTORY: Weakness. Ovarian cancer. TECHNIQUE: Frontal and lateral views of the chest are obtained. FINDINGS: There is blunting of the left posterior costophrenic angle. There is no heart failure. Hea rt size is normal. There is right central venous catheter with the tip in the superior vena cava. No pneumothorax. There is a minimal infiltrate left posterior lung base. IMPRESSION: There is new left pleural effusion and left lower lobe infiltrate compared to last exam. Normal heart.
[2019-09-23] MEDS ORDERED: cefTRIAXone IN SWFI 1,000 MG/10 ML SYRINGE IVP STA (20:11)
[2019-09-23] MEDS ORDERED: PNEUMONIA PROTOCOL UTILIZED 1 EACH MISC PO PRN (20:12)
[2019-09-23] MEDS ORDERED: LEVOFLOXACIN 750MG-D5W PMX 750 MG in DEXTROSE/WATER 1 150ML.BAG IVPB STA (20:12)
[2019-09-23 20:14] LABS: ALT 10 U/L (9-52); AST 32 U/L (14-36); African American GFR (CKD) >90 (>60 ml/min/1.73 sqM); Albumin 2.2 g/dL (3.5-5.0); Alkaline Phosphatase 136 U/L (38-126); Anion Gap 5 mmol/L; Blood Urea Nitrogen 13 mg/dL (7-17); Calcium 8.6 mg/dL (8.4-10.2); Carbon Dioxide 23 mmol/L (22-30); Chloride 105 mmol/L (98-107); Creatine Kinase 72 U/L (30-135); Glucose 116 mg/dL (74-99); Magnesium 1.6 mg/dL (1.6-2.3); Non-African American GFR(CKD) >90 (>60 ml/min/1.73 sqM); Potassium 3.5 mmol/L (3.5-5.1); Sodium 133 mmol/L (137-145); Total Bilirubin 0.2 mg/dL (0.2-1.3); Total Protein 5.3 g/dL (6.3-8.2)
[2019-09-23] MEDS ORDERED: TWOCAL HN PO SCH (22:00)
[2019-09-23] MEDS: APIXABAN 5 MG TAB PO SCH (22:43)
[2019-09-23] MEDS: MIRTAZAPINE 15 MG TAB PO SCH (22:44)
[2019-09-23] MEDS: GABAPENTIN 100 MG CAP PO SCH (22:44)
[2019-09-23] MEDS: MORPHINE SULFATE ER 30 MG TABLET PO SCH (22:44)
[2019-09-23] MEDS: SENNOSIDES-DOCUSATE SODIUM 1 EACH TAB PO SCH (22:45)
[2019-09-24] MEDS: PIPERACILLIN-TAZOBACTAM 3.375 GM in SODIUM CHLORIDE 0.9% 100 ML IVPB SCH ×3 (00:23→16:38)
[2019-09-24] MEDS: MORPHINE SULFATE ER 30 MG TABLET PO SCH ×4 (04:09→20:36)
[2019-09-24] MEDS: GABAPENTIN 100 MG CAP PO SCH ×3 (04:09→20:36)
--- NOTE | 2019-09-24 09:29 | XR ---
EXAMINATION TYPE: XR chest 1V DATE OF EXAM: 09/24/2019 COMPARISON: 09/23/2019 HISTORY: Cough TECHNIQUE: Single frontal view of the chest is obtained. FINDINGS: There is a Mediport catheter with left lower lobe consolidation. No pneumothorax or overt failure. Subsegmental changes at the right lung base. Heart size normal. Hypertrophic and degenerativ e change of the spine. Tiny bilateral pleural effusions. IMPRESSION: Bilateral infiltrate greater on the left with suspected tiny pleural effusions.
[2019-09-24] MEDS: MEGESTROL 400 MG/10 ML CUP PO SCH (09:50)
[2019-09-24] MEDS: APIXABAN 5 MG TAB PO SCH ×2 (09:50→20:35)
[2019-09-24 10:24] VITALS: BMI 16.5
[2019-09-24] MEDS ORDERED: Potassium Replacement Protocol 1 EACH MISC MISCELLANE PRN (15:56)
--- NOTE | 2019-09-24 15:56 | P.HPIM ---
History of Present Illness H&P Date: 09/24/19 Chief Complaint: Dehydration, increased weakness, decreased oral intake This is a 59-year-old female history of stage IV uterine cancer, recently admitted for similar presentation, discharged to subacute rehab, with complaints of decreased oral intake over the last few days, increased weakness, confusion. Denies nausea vomiting or diarrhea. Denies constipation. Denies pain. Denies chest pain, palpitations or shortness of breath. Vital signs stable, maintaining O2 sats in the 90s on room air. Blood sugar 174 on admission. Afebrile, normal WBC, hemoglobin 7.3. Sodium 133. UA positive for acute UTI. Chest x-ray reporting new pleural effusion, left lower lobe infiltrate compared to prior exam. Review of Systems ROS Statement: Those systems with pertinent positive or pertinent negative responses have been documented in the HPI. ROS Other: All systems not noted in ROS Statement are negative. Past Medical History Past Medical History: Cancer, Diabetes Mellitus, Hyperlipidemia, Hypertension, Thyroid Disorder Additional Past Medical History / Comment(s): 2012 Uterine cancer with hysterectomy and radiation, NIDDM-loss, neuropathy bilateral feet, hypothyroid, back cancer rad M-F n [place], [facility] due to Radaiation History of Any Multi-Drug Resistant Organisms: None Reported Past Surgical History: Section, Hysterectomy, Orthopedic Surgery Additional Past Surgical History / Comment(s): x 2, L foot bone spur Past Anesthesia/Blood Transfusion Reactions: Motion Sickness, Postoperative Nausea & Vomiting (PONV) Past Psychological History: No Psychological Hx Reported Additional Psychological History / Comment(s): Pt resides with her spouse and family and friends assist her. She uses a walker at home. Patient has glucometer. works full-time and while he is at work she needs to fens for herself. [place] [facility] [place] Smoking Status: Never smoker Past Alcohol Use History: None Reported Past Drug Use History: None Reported - Past Family History Father Family Medical History: Myocardial Infarction (RI) Additional Family Medical History / Comment(s): Father had a RI at the age of 85 yrs. Mother Family Medical History: Osteoarthritis (OA), Skin Disorder, Thyroid Disorder Additional Family Medical History / Comment(s): Psoriasis. Medications and Allergies Home Medications Medication Instructions Recorded Confirmed Type Apixaban [Eliquis] 5 mg PO BID 09/08/19 09/23/19 History Mirtazapine 7.5 mg PO HS 09/08/19 09/23/19 History Prochlorperazine [Compazine] 10 mg PO Q6H 09/08/19 09/23/19 History Sennosides-Docusate Sodium 2 tab PO HS 09/08/19 09/23/19 History [Senokot-S] Gabapentin [Neurontin] 100 mg PO TID@0500,1300,2100 09/23/19 09/23/19 History Megestrol [Megace] 400 mg PO DAILY@0800 09/23/19 09/23/19 History Morphine Sulfate ER [Ms Contin] 30 mg PO Q6H 09/23/19 09/23/19 History Twocal Hn Liquid 120 mg PO TID 09/23/19 09/23/19 History oxyCODONE HCL/ACETAMINOPHEN 1 tab PO Q4H PRN 09/23/19 09/23/19 History [Percocet 7.5-325 mg] Allergies Allergy/AdvReac Type Severity Reaction Status Date / Time latex Allergy Rash/Hives Verified 09/23/19 18:37 Physical Exam Vitals: Vital Signs Temp Pulse Pulse Resp BP BP BP 09/24/19 12:14 98.4 F 96 16 91/54 09/24/19 08:35 68 18 09/24/19 08:30 97.2 F L 68 18 100/67 09/24/19 04:01 98.1 F 57 L 16 94/60 09/23/19 21:50 97.4 F L 87 16 98/63 09/23/19 20:00 103 H 20 98/72 09/23/19 18:05 97.4 F L 104 H 20 90/63 Pulse Ox 09/24/19 12:14 98 09/24/19 08:35 09/24/19 08:30 09/24/19 04:01 92 L 09/23/19 21:50 98 09/23/19 20:00 97 09/23/19 18:05 Intake and Output 09/23/19 09/24/19 09/24/19 22:59 06:59 14:59 Intake Total 500 1000 Output Total 500 Balance 500 500 Intake: Intake, IV Titration 500 1000 Amount Piperacillin-Tazobactam 3 100 .375 gm In Sodium Chloride 0.9% 100 ml @ 25 mls/hr IVPB Q8HR JAYLENE Rx# :[id number] Sodium Chloride 0.9% 1, 900 000 ml @ 100 mls/hr IV . Q10H STA Rx#:[id number] Sodium Chloride 0.9% 500 500 ml 500 ml @ 999 mls/hr IV .Q31M STA Rx#:[id number] Output: Urine 500 Other: Voiding Method Indwelling Catheter Indwelling Catheter # Bowel Movements 1 Weight 44.906 kg 44.906 kg - Exam GENERAL: This is a -59 year-old female, no acute distress, fatigued and weak appearing HEENT: Head is atraumatic, normocephalic. Pupils are equal, round, and reactive to light. Sclerae anicteric. Conjunctivae are clear. Mucus membranes of the mouth are dry.Neck is supple. RESPIRATORY: Clear to auscultation. No wheezes, rales, or rhonchi. No use of accessory muscles. No chest wall tenderness is noted on palpation or with deep breathing. CARDIOVASCULAR: Regular rate and rhythm. S1 and S2 noted. No systolic or diastolic murmur auscultated. No JVD noted. No S3 or S4 noted. GASTROINTESTINAL: No distention noted. Abdomen soft and round. Normal active bowel sounds auscultated x 4 quadrants. No pain or tenderness noted upon palpation. INTEGUMENTARY: No cyanosis. No jaundice. No rashes noted. No cellulitis noted. sacral dressing clean dry and intact, small lumbar spine superficial decubitus ulcer EXTREMITIES: 2+ peripheral pulses. No evidence of peripheral edema. No calf tenderness noted. right small unstageable necrotic heel ulcer NEUROLOGIC: Cranial nerves II-XII grossly intact. PSYCHIATRIC: Awake, alert, and oriented X 3. Appropriate affect. Intact judgement and insight. Results CBC & Chem 7: 09/23/19 18:55 09/23/19 18:55 Labs: Abnormal Lab Results - Last 24 Hours (Table) 09/23/19 09/23/19 09/23/19 Range/Units 18:55 18:55 18:55 RBC 2.32 L (3.80-5.40) m/uL Hgb 7.3 L (11.4-16.0) gm/dL Hct 22.5 L (34.0-46.0) % RDW 16.9 H (11.5-15.5) % Lymphocytes # 0.4 L (1.0-4.8) k/uL Sodium 133 L (137-145) mmol/L Glucose 116 H (74-99) mg/dL Alkaline Phosphatase 136 H (38-126) U/L Total Protein 5.3 L (6.3-8.2) g/dL Albumin 2.2 L (3.5-5.0) g/dL Urine Appearance Turbid H (Clear) Urine Protein 1+ H (Negative) Urine Blood Small H (Negative) Urine Nitrite Positive H (Negative) Ur Leukocyte Esterase Large H (Negative) Urine RBC 32 H (0-5) /hpf Urine WBC >182 H (0-5) /hpf Urine WBC Clumps Many H (None) /hpf Urine Bacteria Rare H (None) /hpf Urine Mucus Rare H (None) /hpf Urine Yeast (Budding) Many H (None) /hpf Thrombosis Risk Factor Assmnt - Choose All That Apply Any of the Below Risk Factors Present?: Yes Each Factor Represents 1 point: Age 41-60 years Each Risk Factor Represents 3 Points: History of DVT/PE Thrombosis Risk Factor Assessment Total Risk Factor Score: 4 Thrombosis Risk Factor Assessment Level: Moderate Risk Assessment and Plan Assessment: (1) Dehydration, secondary to decreased oral intake from chemotherapy and radiation with accompanying generalized weakness (2) anemia, chronic, secondary to malignancy (3) acute left lower lobe pneumonia (4) history of uterine cancer with metastasis of spine, currently receiving chemotherapy, radiation outpatient (5) L3 pathological compression fracture, history of. (6) moderate protein calorie malnutrition, BMI 16.5, albumin 3.1 (7) generalized weakness, multifactorial, secondary to all the above (8) retroperitoneal lymphadenopathy (9) diabetes mellitus II (10) hypertension (11) hyperlipidemia (12)sacral pressure ulcer-necrotic, stage IV ,status post debridement; small superficial lumbar spine decubitus ulcer, small unstageable right heel ulcer unstageable, present on admission (13) hypothyroidism Plan: Continue on current medication regime ,monitoring and symptomatic treatment. Maintain IV fluid hydration, IV antibiotics. Oncology consulted. Initially patient was discharged to subacute rehab to attempt strengthening with possiblility of proceeding with immunotherapy -patient's oncologist in [place], Dr. Bateman.Prognosis guarded given multiple complex comorbidities. The impression and plan of care has been dictated as directed. : I performed a history and examination of this patient, discussed the same with the dictator. I agree with the dictator's note ,documented as a scribe. Any additional findings or plans will be noted.
[2019-09-24] MEDS ORDERED: Magnesium Replacement Protocol 1 EACH MISC MISCELLANE PRN (15:57)
[2019-09-24 17:41] LABS: Anisocytosis Slight; Basophils # (A) 0.1 k/uL (0-0.2); Basophils % (A) 2 %; Eosinophils # (A) 0.3 k/uL (0-0.7); Eosinophils % (A) 4 %; HCT 22.1 % (34.0-46.0); Hypochromasia Moderate; Lymphocytes # (A) 0.2 k/uL (1.0-4.8); Lymphocytes % (A) 4 %; MCH 31.3 pg (25.0-35.0); MCHC 31.4 g/dL (31.0-37.0); MCV 99.8 fL (80.0-100.0); Macrocytosis Slight; Mean Platelet Volume 7.6; Monocytes # (A) 0.5 k/uL (0-1.0); Monocytes % (A) 8 %; Neutrophils # (A) 5.2 k/uL (1.3-7.7); Neutrophils % (A) 81 %; Platelet Count 385 k/uL (150-450); RBC 2.22 m/uL (3.80-5.40); RDW 16.9 % (11.5-15.5); WBC 6.4 k/uL (3.8-10.6)
[2019-09-24 17:46] LABS: HGB 6.9 gm/dL (11.4-16.0)
[2019-09-24] MEDS ORDERED: LEVOFLOXACIN 750MG-D5W PMX 750 MG in DEXTROSE/WATER 1 150ML.BAG IVPB SCH (20:00)
[2019-09-24] MEDS: MIRTAZAPINE 15 MG TAB PO SCH (20:35)
[2019-09-24] MEDS: SENNOSIDES-DOCUSATE SODIUM 1 EACH TAB PO SCH (20:38)
[2019-09-25] MEDS: PIPERACILLIN-TAZOBACTAM 3.375 GM in SODIUM CHLORIDE 0.9% 100 ML IVPB SCH ×3 (01:10→15:33)
[2019-09-25] MEDS: MORPHINE SULFATE ER 30 MG TABLET PO SCH ×4 (03:03→20:27)
[2019-09-25] MEDS: GABAPENTIN 100 MG CAP PO SCH ×3 (04:24→20:26)
[2019-09-25 07:43] LABS: African American GFR (CKD) >90 (>60 ml/min/1.73 sqM); Anion Gap 5 mmol/L; Blood Urea Nitrogen 10 mg/dL (7-17); Carbon Dioxide 22 mmol/L (22-30); Chloride 108 mmol/L (98-107); Glucose 110 mg/dL (74-99); Magnesium 1.5 mg/dL (1.6-2.3); Non-African American GFR(CKD) 86 (>60 ml/min/1.73 sqM); Potassium 3.1 mmol/L (3.5-5.1); Sodium 135 mmol/L (137-145)
[2019-09-25 07:45] LABS: Anisocytosis Slight; Basophils # (A) 0.1 k/uL (0-0.2); Basophils % (A) 2 %; Eosinophils # (A) 0.3 k/uL (0-0.7); Eosinophils % (A) 4 %; HCT 27.3 % (34.0-46.0); Hypochromasia Slight; Lymphocytes # (A) 0.3 k/uL (1.0-4.8); Lymphocytes % (A) 4 %; MCH 30.4 pg (25.0-35.0); MCHC 31.9 g/dL (31.0-37.0); MCV 95.2 fL (80.0-100.0); Mean Platelet Volume 7.5; Monocytes # (A) 0.6 k/uL (0-1.0); Monocytes % (A) 7 %; Neutrophils # (A) 6.3 k/uL (1.3-7.7); Neutrophils % (A) 82 %; Platelet Count 385 k/uL (150-450); Poikilocytosis Slight; RBC 2.87 m/uL (3.80-5.40); RDW 17.1 % (11.5-15.5); WBC 7.6 k/uL (3.8-10.6)
[2019-09-25] MEDS ORDERED: Potassium Replacement Protocol 1 EACH MISC MISCELLANE PRN (07:45)
[2019-09-25] MEDS ORDERED: Magnesium Replacement Protocol 1 EACH MISC MISCELLANE PRN (07:47)
[2019-09-25 07:51] LABS: HGB 8.7 gm/dL (11.4-16.0)
[2019-09-25] MEDS: POTASSIUM CHLORIDE 20 MEQ in WATER FOR INJECTION 1 100ML.BAG IVPB SCH ×2 (08:13→12:50)
[2019-09-25] MEDS: MEGESTROL 400 MG/10 ML CUP PO SCH (08:13)
[2019-09-25] MEDS: APIXABAN 5 MG TAB PO SCH ×2 (08:13→20:25)
[2019-09-25] MEDS: oxyCODONE-APAP 7.5-325MG 1 EACH TAB PO PRN (09:27)
[2019-09-25] MEDS: MAGNESIUM SULFATE-D5W PMX 1 GM in DEXTROSE/WATER 1 100ML.BAG IVPB SCH ×2 (10:14→11:34)
--- NOTE | 2019-09-25 13:19 | P.GSCN ---
History of Present Illness Consult date: 09/25/19 Reason for Consult: Possible wound debridement Requesting physician: Shilpa Angulo History of present illness: CHIEF COMPLAINT: Possible wound debridement HISTORY OF PRESENT ILLNESS: 59-year-old female who recently underwent excisional debridement of sacral decubitus ulcer on 09/12/[address] Akhtar. General surgery was consulted to reevaluate decubitus ulcer for possible debridement. PAST MEDICAL HISTORY: See list. PAST SURGICAL HISTORY: See list. SOCIAL HISTORY: No illicit drug use. REVIEW OF SYSTEMS: CONSTITUTIONAL: Denies fever or chills. Reports weakness. HEENT: Denies blurred vision, vision changes, or eye pain. Denies hemoptysis CARDIOVASCULAR: Denies chest pain or pressure. RESPIRATORY: No shortness of breath. GASTROINTESTINAL: Denies abdominal pain. Denies nausea or vomiting HEMATOLOGIC: Denies bleeding disorders. GENITOURINARY: Denies any blood in urine. SKIN: Denies pruitis. Denies rash. Reports chronic decubitus ulcer. PHYSICAL EXAM: VITAL SIGNS: Reviewed. GENERAL: Well-developed in no acute distress. Frail. HEENT: No sclera icterus. Extraocular movements grossly intact. Moist buccal mucosa. Head is atraumatic, normocephalic. ABDOMEN: Soft. Nondistended. Nontender. NEUROLOGIC: Alert and oriented. Cranial nerves II through XII grossly intact. SKIN: Sacral decubitus ulcer with necrotic tissue on the surrounding edges of wound. Wound bed mostly pink with scattered areas of sloughing. LABORATORY DATA: Most recent laboratory data reveals white count 7.6. Hemoglobin 8.7. Platelet count 385. Sodium 135. Potassium 3.1. BUN 10. Creatinine 0.75. ASSESSMENT: 1. Sacral decubitus ulcer with recent excisional debridement 2. Stage IV uterine cancer PLAN: -Patient is meeting with hospice today for information meeting -Recommend santyl to necrotic tissue of decubits ulcer. Dr. Timmons on consult for further wound care recommendations -Possible bedside debridement if patient decides against hospice Nurse practitioner note has been reviewed by physician. Signing provider agrees with the documented findings, assessment, and plan of care. Past Medical History Past Medical History: Cancer, Diabetes Mellitus, Hyperlipidemia, Hypertension, Thyroid Disorder Additional Past Medical History / Comment(s): 2012 Uterine cancer with hysterectomy and radiation, NIDDM-loss, neuropathy bilateral feet, hypothyroid, back cancer rad M-F n [place], [facility] due to Radaiation History of Any Multi-Drug Resistant Organisms: None Reported Past Surgical History: Section, Hysterectomy, Orthopedic Surgery Additional Past Surgical History / Comment(s): x 2, L foot bone spur Past Anesthesia/Blood Transfusion Reactions: Motion Sickness, Postoperative Nausea & Vomiting (PONV) Past Psychological History: No Psychological Hx Reported Additional Psychological History / Comment(s): Pt resides with her spouse and family and friends assist her. She uses a walker at home. Patient has glucometer. works full-time and while he is at work she needs to fens for herself. Pt was [place] residing at [facility] [place]. Smoking Status: Never smoker Past Alcohol Use History: None Reported Past Drug Use History: None Reported - Past Family History Father Family Medical History: Myocardial Infarction (CO) Additional Family Medical History / Comment(s): Father had a CO at the age of 85 yrs. Mother Family Medical History: Osteoarthritis (OA), Skin Disorder, Thyroid Disorder Additional Family Medical History / Comment(s): Psoriasis. Medications and Allergies Home Medications Medication Instructions Recorded Confirmed Type Apixaban [Eliquis] 5 mg PO BID 09/08/19 09/23/19 History Mirtazapine 7.5 mg PO HS 09/08/19 09/23/19 History Prochlorperazine [Compazine] 10 mg PO Q6H 09/08/19 09/23/19 History Sennosides-Docusate Sodium 2 tab PO HS 09/08/19 09/23/19 History [Senokot-S] Gabapentin [Neurontin] 100 mg PO TID@0500,1300,2100 09/23/19 09/23/19 History Megestrol [Megace] 400 mg PO DAILY@0800 09/23/19 09/23/19 History Morphine Sulfate ER [Ms Contin] 30 mg PO Q6H 09/23/19 09/23/19 History Twocal Hn Liquid 120 mg PO TID 09/23/19 09/23/19 History oxyCODONE HCL/ACETAMINOPHEN 1 tab PO Q4H PRN 09/23/19 09/23/19 History [Percocet 7.5-325 mg] Allergies Allergy/AdvReac Type Severity Reaction Status Date / Time latex Allergy Rash/Hives Verified 09/23/19 18:37 Surgical - Exam Vital Signs Temp Pulse Resp BP 97.4 F L 104 H 20 90/63 09/23/19 18:05 09/23/19 18:05 09/23/19 18:05 09/23/19 18:05 Results - Labs 09/25/19 07:00 09/25/19 07:00 Abnormal Lab Results - Last 24 Hours (Table) 09/24/19 09/24/19 09/25/19 Range/Units 17:24 17:24 07:00 RBC 2.22 L (3.80-5.40) m/uL Hgb 6.9 L* (11.4-16.0) gm/dL Hct 22.1 L (34.0-46.0) % RDW 16.9 H (11.5-15.5) % Lymphocytes # 0.2 L (1.0-4.8) k/uL Sodium 135 L (137-145) mmol/L Potassium 3.1 L (3.5-5.1) mmol/L Chloride 108 H (98-107) mmol/L Glucose 110 H (74-99) mg/dL Calcium 8.0 L (8.4-10.2) mg/dL Magnesium 1.5 L (1.6-2.3) mg/dL Crossmatch See Detail 09/25/19 Range/Units 07:00 RBC 2.87 L (3.80-5.40) m/uL Hgb 8.7 L D (11.4-16.0) gm/dL Hct 27.3 L (34.0-46.0) % RDW 17.1 H (11.5-15.5) % Lymphocytes # 0.3 L (1.0-4.8) k/uL Sodium (137-145) mmol/L Potassium (3.5-5.1) mmol/L Chloride (98-107) mmol/L Glucose (74-99) mg/dL Calcium (8.4-10.2) mg/dL Magnesium (1.6-2.3) mg/dL Crossmatch Microbiology - Last 24 Hours (Table) 09/23/19 21:00 Blood Culture - Preliminary Blood No Growth after 24 hours Diabetes panel 09/25/19 Range/Units 07:00 Sodium 135 L (137-145) mmol/L Potassium 3.1 L (3.5-5.1) mmol/L Chloride 108 H (98-107) mmol/L Carbon Dioxide 22 (22-30) mmol/L BUN 10 (7-17) mg/dL Creatinine 0.75 (0.52-1.04) mg/dL Glucose 110 H (74-99) mg/dL Calcium 8.0 L (8.4-10.2) mg/dL Calcium panel 09/25/19 Range/Units 07:00 Calcium 8.0 L (8.4-10.2) mg/dL Pituitary panel 09/25/19 Range/Units 07:00 Sodium 135 L (137-145) mmol/L Potassium 3.1 L (3.5-5.1) mmol/L Chloride 108 H (98-107) mmol/L Carbon Dioxide 22 (22-30) mmol/L BUN 10 (7-17) mg/dL Creatinine 0.75 (0.52-1.04) mg/dL Glucose 110 H (74-99) mg/dL Calcium 8.0 L (8.4-10.2) mg/dL Adrenal panel 09/25/19 Range/Units 07:00 Sodium 135 L (137-145) mmol/L Potassium 3.1 L (3.5-5.1) mmol/L Chloride 108 H (98-107) mmol/L Carbon Dioxide 22 (22-30) mmol/L BUN 10 (7-17) mg/dL Creatinine 0.75 (0.52-1.04) mg/dL Glucose 110 H (74-99) mg/dL Calcium 8.0 L (8.4-10.2) mg/dL
[2019-09-25] MEDS: COLLAGENASE 250 UNIT/GM OINTMENT 30 GM TUBE TOPICAL SCH (15:25)
[2019-09-25] MEDS: LEVOFLOXACIN 750 MG TAB PO SCH (20:18)
[2019-09-25] MEDS: SENNOSIDES-DOCUSATE SODIUM 1 EACH TAB PO SCH (20:25)
[2019-09-25] MEDS: MIRTAZAPINE 15 MG TAB PO SCH (20:26)
--- NOTE | 2019-09-25 20:37 | P.PN ---
Subjective Progress Note Date: 09/25/19 This is a 59-year-old female history of stage IV uterine cancer, recently admitted for similar presentation, discharged to subacute rehab, with complaints of decreased oral intake over the last few days, increased weakness, confusion. Denies nausea vomiting or diarrhea. Denies constipation. Denies pain. Denies chest pain, palpitations or shortness of breath. Vital signs stable, maintaining O2 sats in the 90s on room air. Blood sugar 174 on admission. Afebrile, normal WBC, hemoglobin 7.3. Sodium 133. UA positive for acute UTI. Chest x-ray reporting new pleural effusion, left lower lobe infiltrate compared to prior exam. 09/25/2019 received 1 unit of packed RBCs yesterday with hemoglobin up to 8.7. Potassium 3.1, magnesium 1.5, receiving supplements. Maintained on Levaquin, Zosyn. More alert today. Afebrile, normal WBC. Evaluated by surgery regarding wound care with recommendations noted and appreciated. CODE STATUS discussed and patient wishes to be a no code, no CPR, no intubation. Denies pain. Denies chest pain or palpitations. Objective - Vital Signs Vital signs: Vital Signs Temp 98.1 F 09/25/19 19:35 Pulse 104 H 09/25/19 19:35 Resp 20 09/25/19 19:35 BP 94/58 09/25/19 19:35 Pulse Ox 98 09/25/19 19:35 Intake & Output 09/25/19 09/25/19 09/26/19 06:59 18:59 06:59 Intake Total 1140 160 Output Total 1400 1400 Balance -260 -1240 Intake: Intake, IV Titration 650 Amount Levofloxacin 750Mg-D5w 150 Pmx 750 mg In Dextrose/ Water 1 150ml.bag @ 100 mls/hr IVPB Q24H JAYLENE Rx#: [id number] Piperacillin-Tazobactam 3 100 .375 gm In Sodium Chloride 0.9% 100 ml @ 25 mls/hr IVPB Q8HR JAYLENE Rx# :[id number] Sodium Chloride 0.9% 1, 400 000 ml @ 100 mls/hr IV . Q10H STA Rx#:[id number] Oral 180 160 Blood Product 310 Rc As-3 Unit 310 [id number] Output: Urine 1400 1400 Other: Voiding Method Indwelling Catheter Indwelling Catheter Indwelling Catheter # Bowel Movements 1 - Exam GENERAL: This is a -59 year-old female, no acute distress, more alert today HEENT: Head is atraumatic, normocephalic. Pupils are equal, round, and reactive to light. Sclerae anicteric. Conjunctivae are clear. Mucus membranes of the mouth are moist. Neck is supple. RESPIRATORY: Clear to auscultation. No wheezes, rales, or rhonchi. No use of accessory muscles. No chest wall tenderness is noted on palpation or with deep breathing. CARDIOVASCULAR: Regular rate and rhythm. S1 and S2 noted. No systolic or diastolic murmur auscultated. No JVD noted. No S3 or S4 noted. GASTROINTESTINAL: No distention noted. Abdomen soft and round. Normal active bowel sounds auscultated x 4 quadrants. No pain or tenderness noted upon palpation. INTEGUMENTARY: No cyanosis. No jaundice. No rashes noted. No cellulitis noted. sacral dressing clean dry and intact, small lumbar spine superficial decubitus ulcer EXTREMITIES: 2+ peripheral pulses. No evidence of peripheral edema. No calf ten derness noted. right small unstageable necrotic heel ulcer NEUROLOGIC: Cranial nerves II-XII grossly intact. PSYCHIATRIC: Awake, alert, and oriented X 3. Appropriate affect. Intact judgement and insight. - Labs CBC & Chem 7: 09/25/19 07:00 09/25/19 15:37 Labs: Abnormal Lab Results - Last 24 Hours (Table) 09/24/19 09/25/19 09/25/19 Range/Units 17:24 07:00 07:00 RBC 2.87 L (3.80-5.40) m/uL Hgb 8.7 L D (11.4-16.0) gm/dL Hct 27.3 L (34.0-46.0) % RDW 17.1 H (11.5-15.5) % Lymphocytes # 0.3 L (1.0-4.8) k/uL Sodium 135 L (137-145) mmol/L Potassium 3.1 L (3.5-5.1) mmol/L Chloride 108 H (98-107) mmol/L Glucose 110 H (74-99) mg/dL Calcium 8.0 L (8.4-10.2) mg/dL Magnesium 1.5 L (1.6-2.3) mg/dL Crossmatch See Detail Microbiology - Last 24 Hours (Table) 09/23/19 21:00 Blood Culture - Preliminary Blood No Growth after 24 hours Assessment and Plan Assessment: (1) Dehydration, secondary to decreased oral intake from chemotherapy and radiation with accompanying generalized weakness (2) anemia, chronic, secondary to malignancy (3) acute left lower lobe pneumonia (4) history of uterine cancer with metastasis of spine, currently receiving ch emotherapy, radiation outpatient (5) L3 pathological compression fracture, history of. (6) moderate protein calorie malnutrition, BMI 16.5, albumin 3.1 (7) generalized weakness, multifactorial, secondary to all the above (8) retroperitoneal lymphadenopathy (9) diabetes mellitus II (10) hypertension (11) hyperlipidemia (12)sacral pressure ulcer-necrotic, stage IV , recent debridement; small superfi cial lumbar spine decubitus ulcer, small unstageable right heel ulcer unstageable, present on admission (13) hypothyroidism (14) no code, no CPR, no intubation Plan: Continue on current medication regime ,monitoring and symptomatic treatment. Maintain IV fluid hydration, IV antibiotics. CODE STATUS changed to no code as per patient's wishes .patient requested informational hospice meeting .case management reporting patient wishes to proceed with hospice . Looking at both [facility], [facility] . Discharge planning in progress. Prognosis guarded given multiple complex comorbidities. The impression and plan of care has been dictated as directed. : I performed a history and examination of this patient, discussed the same with the dictator. I agree with the dictator's note ,documented as a scribe. Any additional findings or plans will be noted.
[2019-09-26] MEDS: PIPERACILLIN-TAZOBACTAM 3.375 GM in SODIUM CHLORIDE 0.9% 100 ML IVPB SCH ×4 (00:05→23:57)
[2019-09-26] MEDS: MORPHINE SULFATE ER 30 MG TABLET PO SCH ×3 (03:16→17:31)
[2019-09-26] MEDS: GABAPENTIN 100 MG CAP PO SCH ×3 (05:05→20:28)
[2019-09-26 07:45] LABS: Anisocytosis Slight; Basophils # (A) 0.1 k/uL (0-0.2); Basophils % (A) 1 %; Eosinophils # (A) 0.3 k/uL (0-0.7); Eosinophils % (A) 3 %; HCT 26.9 % (34.0-46.0); HGB 8.7 gm/dL (11.4-16.0); Hypochromasia Slight; Lymphocytes # (A) 0.4 k/uL (1.0-4.8); Lymphocytes % (A) 5 %; MCH 30.8 pg (25.0-35.0); MCHC 32.3 g/dL (31.0-37.0); MCV 95.5 fL (80.0-100.0); Macrocytosis Slight; Mean Platelet Volume 6.8; Monocytes # (A) 0.7 k/uL (0-1.0); Monocytes % (A) 9 %; Neutrophils # (A) 6.7 k/uL (1.3-7.7); Neutrophils % (A) 80 %; Platelet Count 417 k/uL (150-450); Poikilocytosis Slight; RBC 2.81 m/uL (3.80-5.40); WBC 8.4 k/uL (3.8-10.6)
[2019-09-26 07:54] LABS: African American GFR (CKD) >90 (>60 ml/min/1.73 sqM); Anion Gap 5 mmol/L; Blood Urea Nitrogen 8 mg/dL (7-17); Calcium 8.1 mg/dL (8.4-10.2); Carbon Dioxide 21 mmol/L (22-30); Chloride 109 mmol/L (98-107); Glucose 124 mg/dL (74-99); Magnesium 1.8 mg/dL (1.6-2.3); Non-African American GFR(CKD) >90 (>60 ml/min/1.73 sqM); Potassium 3.6 mmol/L (3.5-5.1); Sodium 135 mmol/L (137-145)
[2019-09-26] MEDS: APIXABAN 5 MG TAB PO SCH ×2 (09:10→20:28)
[2019-09-26] MEDS: MEGESTROL 400 MG/10 ML CUP PO SCH (09:10)
[2019-09-26] MEDS: COLLAGENASE 250 UNIT/GM OINTMENT 30 GM TUBE TOPICAL SCH (09:16)
--- NOTE | 2019-09-26 11:42 | P.CONS ---
History of Present Illness - Reason for Consult Consult date: 09/26/19 Wound care - History of Present Illness 58-year-old female who has a history of prior uterine cancer from 6 years prior. At that time she underwent surgical intervention and local radiation therapy. In February 2018 the patient presented and had severe back pain and progressive weakness increasing difficulty with walking and consequently presented to the hospital. There there was evidence of pathological fracture of the L3 as well as retroperitoneal lymphadenopathy. Biopsy confirmed high grade sarcoma. She subsequently has been treated with chemotherapy and radiation therapy. Patient had a recent hospitalization early in September and treated for dehydration secondary to chemotherapy, acute kidney injury, hypotension, lactic acidosis and stage IV coccyx decubitus ulcer and right heel ulcer unstageable. Patient was discharged to home and now returns due to decreased oral intake. Currently her white count is 8.4, hemoglobin 8.7 improved after 1 unit of packed RBCs for hemoglobin of 6.9. Creatinine 0.71, albumin 2.2, influenza testing was negative. Urinalysis turbid with nitrate positive leukoesterase large, WBCs greater than 182, RBCs 32, WBC clumps many, bacteria rare. Blood cultures show ing no growth at 48 hours. Chest x-ray reveals bilateral infiltrate greater on the left with suspected tiny pleural effusions. Patient is currently on Zosyn and Levaquin for pneumonia. ID consult regarding wound care. Discharge plan is to [facility] under hospice care. Review of Systems Constitutional: Reports anorexia, Reports fatigue, Reports lethargy, Reports malaise, Reports poor appetite, Reports weakness, Reports weight loss, Denies fever Eyes: denies blurred vision, denies pain Ears, nose, mouth and throat: Denies dental pain, Denies headache, Denies mouth pain, Denies nasal congestion, Denies nasal discharge, Denies sore throat, Denies vertigo Cardiovascular: Denies chest pain, Denies decreased exercise tolerance, Denies dyspnea on exertion, Denies edema, Denies leg edema, Denies lightheadedness, Denies palpitations, Denies shortness of breath, Denies syncope Respiratory: Reports cough, Denies congestion, Denies cough with sputum, Denies dyspnea, Denies excessive sputum, Denies hemoptysis, Denies wheezing Gastrointestinal: Reports loss of appetite, Denies abdominal pain, Denies diarrhea, Denies nausea, Denies vomiting Genitourinary: Reports as per HPI, Denies dysuria Musculoskeletal: Reports gait dysfunction, Reports muscle weakness, Denies jarred lgias Integumentary: Reports wounds, Denies pruritus, Denies rash Neurological: Denies change in speech, Denies numbness, Denies seizures, Denies weakness Psychiatric: Denies anxiety, Denies depression Endocrine: Denies fatigue, Denies weight change Past Medical History Past Medical History: Cancer, Diabetes Mellitus, Hyperlipidemia, Hypertension, Thyroid Disorder Additional Past Medical History / Comment(s): 2012 Uterine cancer with hysterectomy and radiation, NIDDM-loss, neuropathy bilateral feet, hypothyroid, back cancer rad [place], [facility] due to Radaiation History of Any Multi-Drug Resistant Organisms: None Reported Past Surgical History: Section, Hysterectomy, Orthopedic Surgery Additional Past Surgical History / Comment(s): x 2, L foot bone spur Past Anesthesia/Blood Transfusion Reactions: Motion Sickness, Postoperative Nausea & Vomiting (PONV) Past Psychological History: No Psychological Hx Reported Additional Psychological History / Comment(s): Pt resides with her spouse and family and friends assist her. She uses a walker at home. Patient has glucometer. works full-time and while he is at work she needs to fens for herself. [place] [facility] [place] Status: Never smoker Past Alcohol Use History: None Reported Past Drug Use History: None Reported - Past Family History Father Family Medical History: Myocardial Infarction (NM) Additional Family Medical History / Comment(s): Father had a NM at the age of 85 yrs. Mother Family Medical History: Osteoarthritis (OA), Skin Disorder, Thyroid Disorder Additional Family Medical History / Comment(s): Psoriasis. Medications and Allergies Home Medications Medication Instructions Recorded Confirmed Type Apixaban [Eliquis] 5 mg PO BID 09/08/19 09/23/19 History Mirtazapine 7.5 mg PO HS 09/08/19 09/23/19 History Prochlorperazine [Compazine] 10 mg PO Q6H 09/08/19 09/23/19 History Sennosides-Docusate Sodium 2 tab PO HS 09/08/19 09/23/19 History [Senokot-S] Gabapentin [Neurontin] 100 mg PO TID@0500,1300,2100 09/23/19 09/23/19 History Megestrol [Megace] 400 mg PO DAILY@0800 09/23/19 09/23/19 History Morphine Sulfate ER [Ms Contin] 30 mg PO Q6H 09/23/19 09/23/19 History Twocal Hn Liquid 120 mg PO TID 09/23/19 09/23/19 History oxyCODONE HCL/ACETAMINOPHEN 1 tab PO Q4H PRN 09/23/19 09/23/19 History [Percocet 7.5-325 mg] Allergies Allergy/AdvReac Type Severity Reaction Status Date / Time latex Allergy Rash/Hives Verified 09/23/19 18:37 Physical Exam Vitals: Vital Signs Temp Pulse Pulse Resp BP BP Pulse Ox 09/26/19 08:25 18 09/26/19 04:21 98.4 F 103 H 20 94/59 97 09/25/19 19:35 98.1 F 104 H 20 94/58 98 09/25/19 19:23 104 H 20 09/25/19 16:30 80 98 16 Intake and Output 09/25/19 09/26/19 09/26/19 22:59 06:59 14:59 Intake Total 120 220 Output Total 2300 500 Balance -2180 -280 Intake: Intake, IV Titration 100 Amount Piperacillin-Tazobactam 3 100 .375 gm In Sodium Chloride 0.9% 100 ml @ 25 mls/hr IVPB Q8HR [facility] Rx# :[id number] Oral 120 120 Output: Urine 2300 500 Other: Voiding Method Indwelling Catheter Indwelling Catheter Indwelling Catheter # Bowel Movements 1 Gen: This is a 59-year-old cachectic pale female. She is resting in bed sleeping but arouses easily to verbal stimuli. HEENT: Head is atraumatic, normocephalic. Pupils equal, round. Sclerae is anicteric. Patient has alopecia. Oral mucous membranes are very dry. No thrush noted. NECK: Supple. No JVD. No lymphadenopathy. No thyromegaly. LUNGS: Diminished. No wheezes or rhonchi. No intercostal retractions. HEART: Regular rate and rhythm. No murmur. ABDOMEN: Soft. Bowel sounds are present. No masses. No tenderness. Costello catheter draining clear tyler urine. EXTREMITIES: No pedal edema. No calf tenderness. Dorsalis pedis +2 bilaterally. Profound muscle wasting to the lower extremities. There is an unstageable pressure ulcer to the right heel and left ankle. Toxic decubitus not viewed. Please see nursing documentation for details. Patient also has pressure ulcers to the thoracic spine. NEUROLOGICAL: Patient is awake, alert and oriented x3. Cranial nerves 2 through 12 are grossly intact. Profound weakness noted. Results Results: Laboratory Results WBC 8.4 k/uL (3.8-10.6) 09/26/19 07:15 RBC 2.81 m/uL (3.80-5.40) L 09/26/19 07:15 Hgb 8.7 gm/dL (11.4-16.0) L 09/26/19 07:15 Hct 26.9 % (34.0-46.0) L 09/26/19 07:15 MCV 95.5 fL (80.0-100.0) 09/26/19 07:15 MCH 30.8 pg (25.0-35.0) 09/26/19 07:15 MCHC 32.3 g/dL (31.0-37.0) 09/26/19 07:15 RDW 17.0 % (11.5-15.5) H 09/26/19 07:15 Plt Count 417 k/uL (150-450) 09/26/19 07:15 Neutrophils % 80 % 09/26/19 07:15 Lymphocytes % 5 % 09/26/19 07:15 Monocytes % 9 % 09/26/19 07:15 Eosinophils % 3 % 09/26/19 07:15 Basophils % 1 % 09/26/19 07:15 Neutrophils # 6.7 k/uL (1.3-7.7) 09/26/19 07:15 Lymphocytes # 0.4 k/uL (1.0-4.8) L 09/26/19 07:15 Monocytes # 0.7 k/uL (0-1.0) 09/26/19 07:15 Eosinophils # 0.3 k/uL (0-0.7) 09/26/19 07:15 Basophils # 0.1 k/uL (0-0.2) 09/26/19 07:15 Hypochromasia Slight 09/26/19 07:15 Poikilocytosis Slight 09/26/19 07:15 Anisocytosis Slight 09/26/19 07:15 Macrocytosis Slight 09/26/19 07:15 Sodium 135 mmol/L (137-145) L 09/26/19 07:15 Potassium 3.6 mmol/L (3.5-5.1) 09/26/19 07:15 Chloride 109 mmol/L (98-107) H 09/26/19 07:15 Carbon Dioxide 21 mmol/L (22-30) L 09/26/19 07:15 Anion Gap 5 mmol/L 09/26/19 07:15 BUN 8 mg/dL (7-17) 09/26/19 07:15 Creatinine 0.71 mg/dL (0.52-1.04) 09/26/19 07:15 Est GFR (CKD-EPI)AfAm >90 (>60 ml/min/1.73 sqM) 09/26/19 07:15 Est GFR (CKD-EPI)NonAf >90 (>60 ml/min/1.73 sqM) 09/26/19 07:15 Glucose 124 mg/dL (74-99) H 09/26/19 07:15 Calcium 8.1 mg/dL (8.4-10.2) L 09/26/19 07:15 Magnesium 1.8 mg/dL (1.6-2.3) 09/26/19 07:15 Total Bilirubin 0.2 mg/dL (0.2-1.3) 09/23/19 18:55 AST 32 U/L (14-36) 09/23/19 18:55 ALT 10 U/L (9-52) 09/23/19 18:55 Alkaline Phosphatase 136 U/L (38-126) H 09/23/19 18:55 Ammonia <9 umol/L (<30) 09/23/19 22:46 Creatine Kinase 72 U/L (30-135) 09/23/19 18:55 Troponin I <0.012 ng/mL (0.000-0.034) 09/23/19 18:55 Total Protein 5.3 g/dL (6.3-8.2) L 09/23/19 18:55 Albumin 2.2 g/dL (3.5-5.0) L 09/23/19 18:55 Urine Color Yellow 09/23/19 18:55 Urine Appearance Turbid (Clear) H 09/23/19 18:55 Urine pH 7.0 (5.0-8.0) 09/23/19 18:55 Ur Specific [place] 1.014 (1.001-1.035) 09/23/19 18:55 Urine Protein 1+ (Negative) H 09/23/19 18:55 Urine Glucose (UA) Negative (Negative) 09/23/19 18:55 Urine Ketones Negative (Negative) 09/23/19 18:55 Urine Blood Small (Negative) H 09/23/19 18:55 Urine Nitrite Positive (Negative) H 09/23/19 18:55 Urine Bilirubin Negative (Negative) 09/23/19 18:55 Urine Urobilinogen <2.0 mg/dL (<2.0) 09/23/19 18:55 Ur Leukocyte Esterase Large (Negative) H 09/23/19 18:55 Urine RBC 32 /hpf (0-5) H 09/23/19 18:55 Urine WBC >182 /hpf (0-5) H 09/23/19 18:55 Urine WBC Clumps Many /hpf (None) H 09/23/19 18:55 Ur Squamous Epith Cells 2 /hpf (0-4) 09/23/19 18:55 Urine Bacteria Rare /hpf (None) H 09/23/19 18:55 Urine Mucus Rare /hpf (None) H 09/23/19 18:55 Urine Yeast (Budding) Many /hpf (None) H 09/23/19 18:55 Influenza Type A RNA Not Detected (Not Detectd) 09/23/19 20:30 Influenza Type B (PCR) Not Detected (Not Detectd) 09/23/19 20:30 Blood Type A Positive 09/24/19 17:24 Blood Type Recheck A Pos 09/24/19 17:24 Bld Type Recheck Status No 09/24/19 17:24 Antibody Screen NEGATIVE 09/24/19 17:24 Crossmatch See Detail 09/24/19 17:24 Spec Expiration Date 09/27/20196 09/24/19 17:24 CBC & Chem 7: 09/26/19 07:15 09/26/19 07:15 Labs: Abnormal Lab Results - Last 24 Hours (Table) 09/26/19 09/26/19 Range/Units 07:15 07:15 RBC 2.81 L (3.80-5.40) m/uL Hgb 8.7 L (11.4-16.0) gm/dL Hct 26.9 L (34.0-46.0) % RDW 17.0 H (11.5-15.5) % Lymphocytes # 0.4 L (1.0-4.8) k/uL Sodium 135 L (137-145) mmol/L Chloride 109 H (98-107) mmol/L Carbon Dioxide 21 L (22-30) mmol/L Glucose 124 H (74-99) mg/dL Calcium 8.1 L (8.4-10.2) mg/dL Microbiology - Last 24 Hours (Table) 09/23/19 21:00 Blood Culture - Preliminary Blood No Growth after 48 hours Assessment and Plan Plan: This is a 59-year-old female with history of prior uterine cancer and 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 Patient presents with profound weakness, cachexia and poor oral intake, inability to ambulate or care for herself and currently treated for possible pneumonia. ID has been consult regarding wound care to the sacral decubitus ulcer and extremity ulcers, thoracic spine ulcers. Discharge plan is for hospice care at [facility]. Continue supportive care. Further recommendations as patient progresses. The above dictated assessment and findings were discussed with Dr. Timmons. The impression and plan of care have been directed as dictated. Rashmi Medina nurse practitioner acting as scribe for Dr. Timmons.
--- NOTE | 2019-09-26 11:58 | P.PN ---
Subjective Progress Note Date: 09/26/19 This is a pleasantly debilitated 59-year-old white female with known cancer she has long talk with her yesterday about CODE STATUS and hospice and patient had elected to select hospice as a choice for her care. 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 facility which is pending at this time she is comfortable with her decision almost relieved. She is also complaining of no pain in her appetite is somewhat increased. Objective - Vital Signs Vital signs: Vital Signs Temp 98.4 F 09/26/19 04:21 Pulse 103 H 09/26/19 04:21 Resp 18 09/26/19 08:25 BP 94/59 09/26/19 04:21 Pulse Ox 97 09/26/19 04:21 Intake & Output 09/25/19 09/26/19 09/26/19 18:59 06:59 18:59 Intake Total 160 340 Output Total 1400 1400 Balance -1240 -1060 Intake: Intake, IV Titration 100 Amount Piperacillin-Tazobactam 3 100 .375 gm In Sodium Chloride 0.9% 100 ml @ 25 mls/hr IVPB Q8HR [facility] Rx# :[id number] Oral 160 240 Output: Urine 1400 1400 Other: Voiding Method Indwelling Catheter Indwelling Catheter Indwelling Catheter # Bowel Movements 1 - Exam GENERAL: This is a -59 year-old female, no acute distress, more alert today HEENT: Head is atraumatic, normocephalic. Pupils are equal, round, and reactive to light. Sclerae anicteric. Conjunctivae are clear. Mucus membranes of the mouth are moist. Neck is supple. RESPIRATORY: Clear to auscultation. No wheezes, rales, or rhonchi. No use of accessory muscles. No chest wall tenderness is noted on palpation or with deep breathing. CARDIOVASCULAR: Regular rate and rhythm. S1 and S2 noted. No systolic or diastolic murmur auscultated. No JVD noted. No S3 or S4 noted. GASTROINTESTINAL: No distention noted. Abdomen soft and round. Normal active bowel sounds auscultated x 4 quadrants. No pain or tenderness noted upon palpation. INTEGUMENTARY: No cyanosis. No jaundice. No rashes noted. No cellulitis noted. sacral dressing clean dry and intact, small lumbar spine superficial decubitus u lcer EXTREMITIES: 2+ peripheral pulses. No evidence of peripheral edema. No calf tenderness noted. right small unstageable necrotic heel ulcer NEUROLOGIC: Cranial nerves II-XII grossly intact. PSYCHIATRIC: Awake, alert, and oriented X 3. Appropriate affect. Intact judgement and insight. - Labs CBC & Chem 7: 09/26/19 07:15 09/26/19 07:15 Labs: Abnormal Lab Results - Last 24 Hours (Table) 09/26/19 09/26/19 Range/Units 07:15 07:15 RBC 2.81 L (3.80-5.40) m/uL Hgb 8.7 L (11.4-16.0) gm/dL Hct 26.9 L (34.0-46.0) % RDW 17.0 H (11.5-15.5) % Lymphocytes # 0.4 L (1.0-4.8) k/uL Sodium 135 L (137-145) mmol/L Chloride 109 H (98-107) mmol/L Carbon Dioxide 21 L (22-30) mmol/L Glucose 124 H (74-99) mg/dL Calcium 8.1 L (8.4-10.2) mg/dL Microbiology - Last 24 Hours (Table) 09/23/19 21:00 Blood Culture - Preliminary Blood No Growth after 48 hours Assessment and Plan (1) Dehydration Current Visit: Yes Status: Acute Code(s): E86.0 - DEHYDRATION SNOMED Code(s): 50208433 (2) Left lower lobe pneumonia Current Visit: Yes Status: Acute Code(s): J18.9 - PNEUMONIA, UNSPECIFIED ORGANISM SNOMED Code(s): 372057955 (3) Ovarian ca Current Visit: Yes Status: Acute Code(s): C56.9 - MALIGNANT NEOPLASM OF UNSPECIFIED OVARY SNOMED Code(s): 176147986 (4) Lack of appetite Current Visit: No Status: Acute Code(s): R63.0 - ANOREXIA SNOMED Code(s): 14276168 (5) Pressure ulcer of coccygeal region, stage 4 Current Visit: No Status: Acute Code(s): L89.154 - PRESSURE ULCER OF SACRAL REGION, STAGE 4 SNOMED Code(s): 819556362 (6) Weakness Current Visit: No Status: Acute Code(s): R53.1 - WEAKNESS SNOMED Code(s): 08656598 Plan: Patient will be placed in hospice as soon as beds available please let me know I can had the discharge orders in place. For now maintaining comfort measures and current care.
[2019-09-26] MEDS: oxyCODONE-APAP 7.5-325MG 1 EACH TAB PO PRN (13:31)
[2019-09-26] MEDS: SENNOSIDES-DOCUSATE SODIUM 1 EACH TAB PO SCH (20:28)
[2019-09-26] MEDS: LEVOFLOXACIN 750 MG TAB PO SCH (20:28)
[2019-09-26] MEDS: MIRTAZAPINE 15 MG TAB PO SCH (20:28)
--- NOTE | 2019-09-26 22:40 | P.CON ---
Consult Note - . Consult date: 09/26/19 Assessment/Plan:: 58-year-old female who has a history of prior uterine cancer from 6 years prior. At that time she underwent surgical intervention and local radiation therapy. In February 2018 the patient presented and had severe back pain and progressive weakness increasing difficulty with walking and consequently presented to the hospital. There there was evidence of pathological fracture of the L3 as well as retroperitoneal lymphadenopathy. Biopsy confirmed high grade sarcoma. She subsequently has been treated with chemotherapy and radiation therapy. Patient had a recent hospitalization early in September and treated for dehydration secondary to chemotherapy, acute kidney injury, hypotension, lactic acidosis and stage IV coccyx decubitus ulcer and right heel ulcer unstageable. Patient was discharged to home and now returns due to decreased oral intake. Currently her white count is 8.4, hemoglobin 8.7 improved after 1 unit of packed RBCs for hemoglobin of 6.9. Creatinine 0.71, albumin 2.2, influenza testing was negative. Urinalysis turbid with nitrate positive leukoesterase large, WBCs greater than 182, RBCs 32, WBC clumps many, bacteria rare. Blood cultures showing no growth at 48 hours. Chest x-ray reveals bilateral infiltrate greater on the left with suspected tiny pleural effusions. Patient is currently on Zosyn and Levaquin for pneumonia. ID consult regarding wound care. Discharge plan is to [facility] under hospice care. Please see the consult note as dictated by nurse practitioner Rashmi Hareany. 58-year-old woman has a history of her progressive metastatic cancer and progressive cachexia and difficulty with extensive wounds. Wound care has been initiated with protective dressings to the coccyx area. She has a wedge heels up boots that are working well and the deep tissue injuries with blistering to the right heel have not drained. Deep tissue injury to the left heel is much improved as well as to the lateral aspect of the foot. In air mattress overlay is requested to improve her comfort. It appears that hospices been consulted and will be helping with the discharge plan. We'll be happy to work with the hospice workers regarding wound care to continue to try to help her with her comfort. She is taking protein supplements which will help her with her strength, she is currently receiving antimicrobial therapy with Zosyn and Levaquin shall continue for now until the final plan has been initiated. Cultures will be obtained and will help further direct therapy also. I agree with the evaluation, assessment and plan as dictated by nurse practitioner Mrs. Rashmi Medina.
[2019-09-27 05:03] LABS: Anisocytosis Slight; Basophils # (A) 0.2 k/uL (0-0.2); Basophils % (A) 2 %; Eosinophils # (A) 0.3 k/uL (0-0.7); Eosinophils % (A) 3 %; HCT 27.7 % (34.0-46.0); HGB 8.8 gm/dL (11.4-16.0); Hypochromasia Slight; Lymphocytes # (A) 0.5 k/uL (1.0-4.8); Lymphocytes % (A) 5 %; MCH 30.1 pg (25.0-35.0); MCHC 31.7 g/dL (31.0-37.0); MCV 94.9 fL (80.0-100.0); Mean Platelet Volume 7.2; Monocytes # (A) 0.7 k/uL (0-1.0); Monocytes % (A) 8 %; Neutrophils # (A) 7.3 k/uL (1.3-7.7); Neutrophils % (A) 81 %; Platelet Count 432 k/uL (150-450); Poikilocytosis Slight; RBC 2.92 m/uL (3.80-5.40); RDW 16.9 % (11.5-15.5)
[2019-09-27 05:20] LABS: African American GFR (CKD) >90 (>60 ml/min/1.73 sqM); Anion Gap 3 mmol/L; Blood Urea Nitrogen 8 mg/dL (7-17); Calcium 8.4 mg/dL (8.4-10.2); Carbon Dioxide 23 mmol/L (22-30); Chloride 106 mmol/L (98-107); Glucose 147 mg/dL (74-99); Non-African American GFR(CKD) >90 (>60 ml/min/1.73 sqM); Potassium 3.8 mmol/L (3.5-5.1); Sodium 132 mmol/L (137-145)
[2019-09-27] MEDS: GABAPENTIN 100 MG CAP PO SCH ×3 (05:35→21:50)
[2019-09-27] MEDS: APIXABAN 5 MG TAB PO SCH ×2 (08:36→20:26)
[2019-09-27] MEDS: MORPHINE SULFATE ER 30 MG TABLET PO SCH ×3 (08:36→17:10)
[2019-09-27] MEDS: PIPERACILLIN-TAZOBACTAM 3.375 GM in SODIUM CHLORIDE 0.9% 100 ML IVPB SCH ×2 (08:37→17:10)
[2019-09-27] MEDS: MEGESTROL 400 MG/10 ML CUP PO SCH (08:37)
[2019-09-27] MEDS: oxyCODONE-APAP 7.5-325MG 1 EACH TAB PO PRN ×2 (09:52→20:27)
[2019-09-27] MEDS: PROCHLORPERAZINE 10 MG TAB PO PRN ×2 (10:50→17:12)
[2019-09-27] MEDS: COLLAGENASE 250 UNIT/GM OINTMENT 30 GM TUBE TOPICAL SCH (12:44)
[2019-09-27] MEDS: LEVOFLOXACIN 750 MG TAB PO SCH (20:26)
[2019-09-27] MEDS: SENNOSIDES-DOCUSATE SODIUM 1 EACH TAB PO SCH (20:27)
[2019-09-27] MEDS: MIRTAZAPINE 15 MG TAB PO SCH (21:49)
[2019-09-28] MEDS: MORPHINE SULFATE ER 30 MG TABLET PO SCH ×3 (00:45→15:38)
[2019-09-28] MEDS: PIPERACILLIN-TAZOBACTAM 3.375 GM in SODIUM CHLORIDE 0.9% 100 ML IVPB SCH ×3 (00:46→15:40)
[2019-09-28] MEDS: GABAPENTIN 100 MG CAP PO SCH ×3 (05:25→21:01)
[2019-09-28] MEDS: APIXABAN 5 MG TAB PO SCH ×2 (08:09→21:01)
[2019-09-28] MEDS: MEGESTROL 400 MG/10 ML CUP PO SCH (08:09)
[2019-09-28] MEDS: oxyCODONE-APAP 7.5-325MG 1 EACH TAB PO PRN (12:41)
[2019-09-28] MEDS: COLLAGENASE 250 UNIT/GM OINTMENT 30 GM TUBE TOPICAL SCH (13:08)
[2019-09-28] MEDS: LEVOFLOXACIN 750 MG TAB PO SCH (21:00)
[2019-09-28] MEDS: SENNOSIDES-DOCUSATE SODIUM 1 EACH TAB PO SCH (21:00)
[2019-09-28] MEDS: MIRTAZAPINE 15 MG TAB PO SCH (21:01)
--- NOTE | 2019-09-28 21:15 | P.PN ---
Subjective Progress Note Date: 09/28/19 Principal diagnosis: Left lower lobe pneumonia and dehydration Covering for Dr. Rod over the weekend Ms. 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 Patient also has stage IV coccyx decubitus ulcers and right heel ulcer. Patient was recently discharged from the hospital and coming back due to decreased oral intake. At the time of admission patient was found to be dehydrated and also having pneumonia and UTI. She is currently being treated with Zosyn and Levaquin and her Dr. Timmons recommendations. Patient was a discussion regarding CODE STATUS with the patient's yesterday by Dr. Rod and they're considering hospice care. Today when I went to examine the patient she is comfortably lying in bed appears to be no acute distress. Her family members are at the bedside including both her sisters and son. They had multiple questions regarding the patient's current status and prognosis. The patient denies having any fevers chills or rigors. No cough or difficulty in breathing. No chest pain or palpitations. No abdominal pain nausea vomiting or diarrhea. She denies being in any pain. She still has a very poor appetite and not able to eat or drink anything much. Patient's medications have been reviewed; Active Medications Apixaban (Eliquis) 5 mg PO BID [facility] Last Admin: 09/28/19 08:09 Dose: 5 mg Documented by: Collagenase (Santyl) 1 applic TOPICAL DAILY [facility] Last Admin: 09/27/19 12:44 Dose: 1 applic Documented by: Gabapentin (Neurontin) 100 mg PO TID@0500,1300,2100 [facility] [place] Last Admin: 09/28/19 05:25 Dose: 100 mg Documented by: Piperacillin Sod/Tazobactam (Sod 3.375 gm/ Sodium Chloride) 100 mls @ 25 mls/hr IVPB Q8HR [facility] Stop: 10/04/19 00:01 Last Admin: 09/28/19 08:08 Dose: 25 mls/hr Documented by: Levofloxacin (Levaquin) 750 mg PO Q24H [facility] [place] Stop: 10/06/19 20:01 Last Admin: 09/27/19 20:26 Dose: 750 mg Documented by: Megestrol Acetate (Megace) 400 mg PO DAILY@0800 [facility] Last Admin: 09/28/19 08:09 Dose: 400 mg Documented by: Mirtazapine (Remeron) 7.5 mg PO [facility] Last Admin: 09/27/19 21:49 Dose: 7.5 mg Documented by: Miscellaneous Information (Pneumonia Protocol Utilized) 1 each PO ONCE PRN PRN Reason: Per Protocol Miscellaneous Information (Potassium Per Protocol) 1 each MISCELLANE DAILY PRN; Protocol PRN Reason: Per Protocol Miscellaneous Information (Magnesium Per Protocol) 1 each MISCELLANE DAILY PRN; Protocol PRN Reason: Per Protocol Morphine Sulfate (Ms Contin) 30 mg PO Q8HR [facility] Last Admin: 09/28/19 08:09 Dose: 30 mg Documented by: Oxycodone/Acetaminophen (Percocet 7.5-325) 1 each PO Q4H PRN PRN Reason: Moderate Pain Last Admin: 09/28/19 12:41 Dose: 1 each Documented by: Prochlorperazine Maleate (Compazine) 10 mg PO Q6H PRN PRN Reason: nausea Last Admin: 09/27/19 17:12 Dose: 10 mg Documented by: Senna/Docusate Sodium (Senokot-S) 2 each PO [facility] Last Admin: 09/27/19 20:27 Dose: 2 each Documented by: Objective - Vital Signs Vital signs: Vital Signs Temp 97.7 F 09/28/19 11:39 Pulse 110 H 09/28/19 11:39 Resp 17 09/28/19 11:39 BP 104/71 09/28/19 11:39 Pulse Ox 95 09/28/19 11:39 Intake & Output 09/27/19 09/28/19 09/28/19 18:59 06:59 18:59 Intake Total 100 350 Output Total 1900 Balance 100 -1550 Intake: Intake, IV Titration 100 200 Amount Piperacillin-Tazobactam 3 100 200 .375 gm In Sodium Chloride 0.9% 100 ml @ 25 mls/hr IVPB Q8HR [facility] Rx# :[id number] Oral 150 Output: Urine 1900 Uretheral (Costello) 1900 Other: Voiding Method Indwelling Catheter Indwelling Catheter Indwelling Catheter - Exam Gen: Patient is cachectic She is resting in bed comfortably and no acute distress HEENT: Head is atraumatic, normocephalic. Pupils equal, round. Sclerae is anicteric. Patient has alopecia. Oral mucous membranes are very dry. No thrush noted. NECK: Supple. No JVD. No lymphadenopathy. No thyromegaly. LUNGS: Diminished. No wheezes or rhonchi. Poor effort HEART: Tachycardia. No murmur. ABDOMEN: Soft. Bowel sounds are present. No masses. No tenderness. Costello catheter draining clear tyler urine. EXTREMITIES: No pedal edema. No calf tenderness. Profound muscle wasting to the lower extremities. Right heel and left ankle ulcer. Did not examine the back. NEUROLOGICAL: Patient is awake, alert and oriented x3. Cranial nerves 2 through 12 are grossly intact. Profound weakness noted. - Labs CBC & Chem 7: 09/27/19 04:54 09/27/19 04:54 Labs: Microbiology - Last 24 Hours (Table) 09/23/19 21:00 Blood Culture - Preliminary Blood No Growth after 96 hours Assessment and Plan Assessment: ASSESSMENT Dehydration, secondary to decreased oral intake from chemotherapy and radiation with accompanying generalized weakness Anemia, chronic, secondary to malignancy Acute left lower lobe pneumonia History of uterine cancer with metastasis of spine, currently receiving c hemotherapy, radiation outpatient L3 pathological compression fracture, history of. Moderate protein calorie malnutrition, BMI 16.5, albumin 3.1 Generalized weakness, multifactorial, secondary to all the above Retroperitoneal lymphadenopathy Diabetes mellitus II Hypertension Hyperlipidemia Sacral pressure ulcer-necrotic, stage IV , recent debridement; small superficial lumbar spine decubitus ulcer, small unstageable right heel ulcer unstageable, present on admission hypothyroidism No code, no CPR, no intubation PLAN : Continue with the current antibody regimen of levofloxacin and Zosyn. Patient is on Megace to improve her appetite. Continue with IV hydration. She is a DO NOT RESUSCITATE and they're considering [place] [facility]. Patient's 2 sisters and son at the bedside had multiple questions regarding the treatment plan and prognosis. All their questions are answered in detail as much as possible. Overall prognosis is poor, this was explained to them in detail. Further recommendations to follow depending on the progress of the patient.
[2019-09-29] MEDS: MORPHINE SULFATE ER 30 MG TABLET PO SCH ×3 (00:03→15:14)
[2019-09-29] MEDS: PIPERACILLIN-TAZOBACTAM 3.375 GM in SODIUM CHLORIDE 0.9% 100 ML IVPB SCH ×3 (00:03→16:49)
[2019-09-29] MEDS: GABAPENTIN 100 MG CAP PO SCH ×3 (05:08→20:29)
[2019-09-29 06:52] LABS: African American GFR (CKD) >90 (>60 ml/min/1.73 sqM); Anion Gap 3 mmol/L; Blood Urea Nitrogen 9 mg/dL (7-17); Calcium 8.4 mg/dL (8.4-10.2); Carbon Dioxide 21 mmol/L (22-30); Chloride 103 mmol/L (98-107); Glucose 97 mg/dL (74-99); Non-African American GFR(CKD) >90 (>60 ml/min/1.73 sqM); Sodium 127 mmol/L (137-145)
[2019-09-29 06:57] LABS: Potassium 4.2 mmol/L (3.5-5.1)
[2019-09-29 07:03] LABS: Anisocytosis Slight; HCT 26.1 % (34.0-46.0); HGB 8.3 gm/dL (11.4-16.0); Hypochromasia Moderate; MCH 30.5 pg (25.0-35.0); MCHC 31.6 g/dL (31.0-37.0); MCV 96.3 fL (80.0-100.0); Macrocytosis Slight; Platelet Count 410 k/uL (150-450); RBC 2.72 m/uL (3.80-5.40); RDW 16.6 % (11.5-15.5); WBC 9.9 k/uL (3.8-10.6)
[2019-09-29] MEDS: MEGESTROL 400 MG/10 ML CUP PO SCH (07:48)
[2019-09-29] MEDS: APIXABAN 5 MG TAB PO SCH ×2 (07:48→20:29)
[2019-09-29 08:11] LABS: Band Neutrophils % 4 %; Metamyelocytes % 3 %; Monocytes # (M) 0.99 k/uL (0-1.0); Myelocytes % 3 %; Neutrophils % (M) 76 %; Nucleated Red Blood Cells 0 /100 WBC (0-0); Total Cells Counted 200
[2019-09-29 08:12] LABS: Poikilocytosis (M) Present
[2019-09-29] MEDS: PROCHLORPERAZINE 10 MG TAB PO PRN ×3 (10:16→22:45)
[2019-09-29] MEDS: oxyCODONE-APAP 7.5-325MG 1 EACH TAB PO PRN (12:28)
[2019-09-29] MEDS: ONDANSETRON 4 MG/2 ML VIAL IVP PRN ×2 (13:06→19:29)
[2019-09-29] MEDS: COLLAGENASE 250 UNIT/GM OINTMENT 30 GM TUBE TOPICAL SCH (13:07)
--- NOTE | 2019-09-29 15:51 | P.PN ---
Subjective Progress Note Date: 09/29/19 Principal diagnosis: Left lower lobe pneumonia and dehydration Covering for Dr. Rod over the weekend Ms. 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 Patient also has stage IV coccyx decubitus ulcers and right heel ulcer. Patient was recently discharged from the hospital and coming back due to decreased oral intake. At the time of admission patient was found to be dehydrated and also having pneumonia and UTI. She is currently being treated with Zosyn and Levaquin and her Dr. Timmons recommendations. Patient was a discussion regarding CODE STATUS with the patient's yesterday by Dr. Rod and they're considering hospice care. on 09/29/2019 - patient is lying comfortably in the bed. She was nauseous this morning and got some Zofran and she feels better now. Overall she complains of generalized weakness and fatigue. No new complaints. No fever chills or rigors. No chest pain or palpitations. No cough or difficulty in breathing. She complains of pain in her lower back that she has the decubitus ulcers.No acute events reported by nursing staff. Family members at bedside and are considering hospice, social media specialist working on placement. Active Medications Apixaban (Eliquis) 5 mg PO BID [facility] Last Admin: 09/29/19 07:48 Dose: 5 mg Documented by: Collagenase (Santyl) 1 applic TOPICAL DAILY [facility] Last Admin: 09/29/19 13:07 Dose: 1 applic Documented by: Gabapentin (Neurontin) 100 mg PO TID@0500,1300,2100 [facility] Last Admin: 09/29/19 12:28 Dose: 100 mg Documented by: Piperacillin Sod/Tazobactam (Sod 3.375 gm/ Sodium Chloride) 100 mls @ 25 mls/hr IVPB Q8HR [facility] Stop: 10/04/19 00:01 Last Admin: 09/29/19 07:48 Dose: 25 mls/hr Documented by: Levofloxacin (Levaquin) 750 mg PO Q24H [facility] Stop: 10/06/19 20:01 Last Admin: 09/28/19 21:00 Dose: 750 mg Documented by: Megestrol Acetate (Megace) 400 mg PO DAILY@0800 [facility] Last Admin: 09/29/19 07:48 Dose: 400 mg Documented by: Mirtazapine (Remeron) 7.5 mg PO [facility] Last Admin: 09/28/19 21:01 Dose: 7.5 mg Documented by: Miscellaneous Information (Pneumonia Protocol Utilized) 1 each PO ONCE PRN PRN Reason: Per Protocol Miscellaneous Information (Potassium Per Protocol) 1 each MISCELLANE DAILY PRN; Protocol PRN Reason: Per Protocol Miscellaneous Information (Magnesium Per Protocol) 1 each MISCELLANE DAILY PRN; Protocol PRN Reason: Per Protocol Morphine Sulfate (Ms Contin) 30 mg PO Q8HR [facility] Last Admin: 09/29/19 15:14 Dose: 30 mg Documented by: Ondansetron HCl (Zofran) 4 mg IVP Q6HR PRN PRN Reason: Nausea And Vomiting Last Admin: 09/29/19 13:06 Dose: 4 mg Documented by: Oxycodone/Acetaminophen (Percocet 7.5-325) 1 each PO Q4H PRN PRN Reason: Moderate Pain Last Admin: 09/29/19 12:28 Dose: 1 each Documented by: Prochlorperazine Maleate (Compazine) 10 mg PO Q6H PRN PRN Reason: nausea Last Admin: 09/29/19 10:16 Dose: 10 mg Documented by: Senna/Docusate Sodium (Senokot-S) 2 each PO [facility] Last Admin: 09/28/19 21:00 Dose: 2 each Documented by: Objective - Vital Signs Vital signs: Vital Signs Temp 97.8 F 09/29/19 11:34 Pulse 100 09/29/19 11:34 Resp 17 09/29/19 11:34 BP 103/67 09/29/19 11:34 Pulse Ox 96 09/29/19 11:34 Intake & Output 09/28/19 09/29/19 09/29/19 18:59 06:59 18:59 Intake Total 200 Output Total 800 800 Balance -800 -600 Intake: Intake, IV Titration 200 Amount Piperacillin-Tazobactam 3 200 .375 gm In Sodium Chloride 0.9% 100 ml @ 25 mls/hr IVPB Q8HR [facility] Rx# :[id number] Output: Urine 800 800 Uretheral (Costello) 800 Other: Voiding Method Indwelling Catheter Indwelling Catheter Indwelling Catheter # Bowel Movements 1 - Exam Gen: Patient is cachectic She is resting in bed comfortably and no acute distress HEENT: Head is atraumatic, normocephalic. Pupils equal, round. Sclerae is anicteric. Patient has alopecia. Oral mucous membranes are very dry. No thrush noted. NECK: Supple. No JVD. No lymphadenopathy. No thyromegaly. LUNGS: Diminished. No wheezes or rhonchi. Poor effort HEART: Tachycardia. No murmur. ABDOMEN: Soft. Bowel sounds are present. No masses. No tenderness. Costello catheter draining clear tyler urine. EXTREMITIES: No pedal edema. Profound muscle wasting to the lower extremities. Right heel and left ankle ulcer. Did not examine the back. NEUROLOGICAL: Patient is awake, alert and oriented x3. Cranial nerves 2 through 12 are grossly intact. Profound weakness noted. - Labs CBC & Chem 7: 09/29/19 06:00 09/29/19 06:00 Labs: Abnormal Lab Results - Last 24 Hours (Table) 09/29/19 09/29/19 Range/Units 06:00 06:00 RBC 2.72 L (3.80-5.40) m/uL Hgb 8.3 L (11.4-16.0) gm/dL Hct 26.1 L (34.0-46.0) % RDW 16.6 H (11.5-15.5) % Neutrophils # (Manual) 7.90 H (1.3-7.7) k/uL Lymphocytes # (Manual) 0.40 L (1.0-4.8) k/uL Metamyelocytes # (Man) 0.30 H (0) k/uL Myelocytes # (Manual) 0.30 H (0) k/uL Sodium 127 L (137-145) mmol/L Carbon Dioxide 21 L (22-30) mmol/L Microbiology - Last 24 Hours (Table) 09/23/19 21:00 Blood Culture - Preliminary Blood No Growth after 120 hours Assessment and Plan Assessment: ASSESSMENT Dehydration, secondary to decreased oral intake from chemotherapy and radiation with accompanying generalized weakness Anemia, chronic, secondary to malignancy Acute left lower lobe pneumonia History of uterine cancer with metastasis of spine, currently receiving chemotherapy, radiation outpatient L3 pathological compression fracture, history of. Moderate protein calorie malnutrition, BMI 16.5, albumin 3.1 Generalized weakness, multifactorial, secondary to all the above Retroperitoneal lymphadenopathy Diabetes mellitus II Hypertension Hyperlipidemia Sacral pressure ulcer-necrotic, stage IV , recent debridement; small superficial lumbar spine decubitus ulcer, small unstageable right heel ulcer unstageable, present on admission hypothyroidism No code, no CPR, no intubation PLAN : Continue with the current antibody regimen of levofloxacin and Zosyn. Patient is on Megace to improve her appetite. Continue with IV hydration. She is a DO NOT RESUSCITATE and they're considering [place] [facility]. Patient's family members at the bedside in the treatment plan was discussed with him in detail. Overall prognosis is poor. Further recommendations to follow depending on the progress of the patient.
[2019-09-29] MEDS: LEVOFLOXACIN 750 MG TAB PO SCH (19:29)
[2019-09-29] MEDS: MIRTAZAPINE 15 MG TAB PO SCH (20:29)
[2019-09-29] MEDS: SENNOSIDES-DOCUSATE SODIUM 1 EACH TAB PO SCH (20:30)
[2019-09-29 21:35] VITALS: RESP 16
[2019-09-29] MEDS: SODIUM CHLORIDE 0.9% 1,000 ML IV SCH (21:58)
[2019-09-30] MEDS: PIPERACILLIN-TAZOBACTAM 3.375 GM in SODIUM CHLORIDE 0.9% 100 ML IVPB SCH ×2 (00:01→09:05)
[2019-09-30] MEDS: ONDANSETRON 4 MG/2 ML VIAL IVP PRN ×2 (03:04→09:05)
[2019-09-30] MEDS: PROCHLORPERAZINE 10 MG TAB PO PRN ×2 (04:16→14:40)
[2019-09-30] MEDS: GABAPENTIN 100 MG CAP PO SCH ×2 (04:16→14:40)
[2019-09-30 07:39] LABS: African American GFR (CKD) >90 (>60 ml/min/1.73 sqM); Anion Gap 8 mmol/L; Blood Urea Nitrogen 10 mg/dL (7-17); Carbon Dioxide 21 mmol/L (22-30); Chloride 103 mmol/L (98-107); Glucose 142 mg/dL (74-99); Non-African American GFR(CKD) >90 (>60 ml/min/1.73 sqM); Potassium 3.9 mmol/L (3.5-5.1); Sodium 132 mmol/L (137-145)
[2019-09-30] MEDS ORDERED: SCOPOLAMINE 1.5MG/72HR PATCH TRANSDERM SCH (09:00)
[2019-09-30] MEDS: SODIUM CHLORIDE 0.9% 1,000 ML IV SCH (10:22)
[2019-09-30 12:05] VITALS: BP 119/67; PULSE 114; TEMP 98.5
[2019-09-30] MEDS: MEGESTROL 400 MG/10 ML CUP PO SCH (14:39)
[2019-09-30] MEDS: MORPHINE SULFATE ER 30 MG TABLET PO SCH ×3 (14:39→14:40)
[2019-09-30] MEDS: APIXABAN 5 MG TAB PO SCH (14:40)
--- NOTE | 2019-09-30 16:12 | P.DS ---
Providers Date of admission: 09/24/19 15:08 Expected date of discharge: 09/30/19 Attending physician: Teodoro Rod Consults: 09/24/19 16:08 Consult Physician Routine Consulting Provider: Levi Timmons Reason/Comments: wound care Do you want consulting provider notified?: Yes Primary care physician: Teodoro Rod - Discharge Diagnosis(es) (1) Dehydration Current Visit: Yes Status: Acute (2) Left lower lobe pneumonia Current Visit: Yes Status: Acute (3) Ovarian ca Current Visit: Yes Status: Acute (4) Lack of appetite Current Visit: No Status: Acute (5) Pressure ulcer of coccygeal region, stage 4 Current Visit: No Status: Acute (6) Weakness Current Visit: No Status: Acute (7) Failure to thrive Current Visit: Yes Status: Acute (8) History of uterine cancer Current Visit: No Status: Acute Priority: High (9) Metastatic sarcoma Current Visit: No Status: Acute (10) Nontraumatic compression fracture of L3 vertebra Current Visit: No Status: Acute (11) Pathologic fracture Current Visit: No Status: Acute (12) Retroperitoneal lymphadenopathy Current Visit: No Status: Acute Priority: High (13) Weight loss Current Visit: No Status: Acute Hospital Course: Patient was admitted with multiple problems related to metastatic uterine sarcoma and ovarian cancer. She has had progressive problems with cancer and and has not tolerated chemotherapy by [facility]. She's had multiple admissions in the last month. Case was discussed with oncology both at [facility] inherent [facility] and felt that patient's overall prognosis remained very poor case was discussed with patient and she wishes to be a no code no CPR. At the time this is very upsetting to the it is recommended that patient undergo hospice program. Hospice was arranged for patient over the past several days and she has been accepted we'll make arrangements today to transfer with comfort measures only and discharge with appropriate comfort care and hospice. Patient Condition at Discharge: Fair Plan - Discharge Summary Discharge Rx Participant: No New Discharge Prescriptions: No Action Sennosides-Docusate Sodium [Senokot-S] 2 tab PO HS Prochlorperazine [Compazine] 10 mg PO Q6H Apixaban [Eliquis] 5 mg PO BID Mirtazapine 7.5 mg PO HS [facility] Liquid 120 mg PO TID Gabapentin [Neurontin] 100 mg PO TID@0500,1300,2100 Megestrol [Megace] 400 mg PO DAILY@0800 Morphine Sulfate ER [Ms Contin] 30 mg PO Q6H oxyCODONE HCL/ACETAMINOPHEN [Percocet 7.5-325 mg] 1 tab PO Q4H PRN PRN Reason: Pain Discharge Medication List Apixaban [Eliquis] 5 mg PO BID 09/08/19 [History] Mirtazapine 7.5 mg PO HS 09/08/19 [History] Prochlorperazine [Compazine] 10 mg PO Q6H 09/08/19 [History] Sennosides-Docusate Sodium [Senokot-S] 2 tab PO HS 09/08/19 [History] Gabapentin [Neurontin] 100 mg PO TID@0500,1300,2100 09/23/19 [History] Megestrol [Megace] 400 mg PO DAILY@0800 09/23/19 [History] Morphine Sulfate ER [Ms Contin] 30 mg PO Q6H 09/23/19 [History] Twocal Hn Liquid 120 mg PO TID 09/23/19 [History] oxyCODONE HCL/ACETAMINOPHEN [Percocet 7.5-325 mg] 1 tab PO Q4H PRN 09/23/19 [H istory] Follow up Appointment(s)/Referral(s): Teodoro Rod DO [Primary Care Provider] - 1-2 days
== END 2019-09-30 17:30 | disposition hospice, inpatient (51) | DRG 193 ==
LOC: EC 17:58 → 3NMEDONC 20:12 → OBSVTOIN 09-24 15:08 → 3NMEDONC 09-29 18:56
PROVIDERS: ADMIT Family Medicine; ATTEND Family Medicine
PROC: 30233N1 Transfusion of Nonautologous Red Blood Cells into Peripheral Vein, Percutaneous Approach (ICD-10-PCS; principal; 2019-09-24)
DX: J18.9 Pneumonia, unspecified organism (principal); L89.154 Pressure ulcer of sacral region, stage 4; E44.0 Moderate protein-calorie malnutrition; J90 Pleural effusion, not elsewhere classified; M84.48XA Pathological fracture, other site, initial encounter for fracture; N39.0 Urinary tract infection, site not specified; Z68.1 Body mass index [BMI] 19.9 or less, adult; C56.9 Malignant neoplasm of unspecified ovary; C79.51 Secondary malignant neoplasm of bone; E86.0 Dehydration; D63.0 Anemia in neoplastic disease; E03.9 Hypothyroidism, unspecified; E78.5 Hyperlipidemia, unspecified; I10 Essential (primary) hypertension; L89.610 Pressure ulcer of right heel, unstageable; E11.9 Type 2 diabetes mellitus without complications; R62.7 Adult failure to thrive; S90.821A Blister (nonthermal), right foot, initial encounter; Z51.5 Encounter for palliative care; Z79.01 Long term (current) use of anticoagulants; Z79.899 Other long term (current) drug therapy; Z82.49 Family history of ischemic heart disease and other diseases of the circulatory system; Z85.42 Personal history of malignant neoplasm of other parts of uterus; Z90.710 Acquired absence of both cervix and uterus; Z92.21 Personal history of antineoplastic chemotherapy; Z92.3 Personal history of irradiation; C55 Malignant neoplasm of uterus, part unspecified; Z66 Do not resuscitate; R59.0 Localized enlarged lymph nodes
CPT/HCPCS: 36415; 71045; 71046; 80048; 80053; 81001; 82140; 82550; 83735; 84132; 84484; 85025; 86850; 86900; 86901; 86920; 87040; 87502; 94760; 96360; 96361; 99285